=== PATIENT | female | born 1955 | race Caucasian/White ===

== ENCOUNTER 2021-05-25 13:57 | Emergency (ER) | payer BC, SELFPAY ==
[2021-05-25 13:58] VITALS: BP 120/70; PULSE 89; RESP 18; TEMP 35.2; O2SAT 98; BMI 30.1
--- NOTE | 2021-05-25 14:19 | EKG12_ITS ---
Test Reason : FALL Blood Pressure : / mmHG Vent. Rate : 108 BPM Atrial Rate : 029 BPM P-R Int : 000 ms QRS Dur : 088 ms QT Int : 506 ms P-R-T Axes : 000 030 062 degrees QTc Int : 678 ms Sinus vs Ectopic Atrial Rhythm Nonspecific ST and T wave abnormality Prolonged QT Abnormal ECG Confirmed by JANEY MATA, OMID ([id number]), greeting card editor HARESH SON ([id number]) on 05/26/2021 11:30:43 AM Referred By: MARIA Confirmed By:OMID TOTH MD
--- NOTE | 2021-05-25 14:20 | CT_ITS ---
STUDY: CT CERVICAL SPINE WITHOUT CONTRAST REASON FOR EXAM: Female, 66 years old. Trauma RADIATION DOSAGE (If Supplied By Facility): CTDIvol = ( 25.30 ) mGy, DLP = ( 995.24 ) mGycm TECHNIQUE: High resolution transaxial imaging was performed without contrast material. Sagittal and coronal images were reconstructed. Individualized dose optimization techniques were used for this CT. COMPARISON: None FINDINGS: Nondisplaced fracture of the posterior aspect of the right occipital bone extending to the base of the right occipital bone and right occipital condyle. Normal craniovertebral junction. There are degenerative changes of the anterior atlantoaxial articulation. Normal odontoid process. There is straightening of the normal cervical lordosis. Normal vertebral bodies and posterior osseous elements. C2-3: Marked degree of disc space narrowing and disc degeneration. Facet joint osteoarthritis and hypertrophy with bilateral neural foraminal stenosis. C3-4: The disc spaces well maintained. There is evidence of facet joint osteoarthritis and hypertrophy of the facet joints worse on the right side. Bilateral neural foraminal stenosis. C4-5: Normal endplates. Normal disc height and morphology. Normal central canal and intervertebral neuroforamina. C5-6: Moderate degree of disc space narrowing. Spondylosis. Mild degree of left neural foraminal stenosis. C6-7: Disc space narrowing. Facet joint osteoarthritis. C7-T1: Normal endplates. Normal disc height and morphology. Normal central canal and intervertebral neuroforamina. Normal visualized soft tissue structures. CT/Spine Cervical without Contras IMPRESSION: Multilevel degenerative changes, as described above. Electronically Signed: Chriss Contreras MD at 15:05 EST , Service support ,
--- NOTE | 2021-05-25 14:21 | CT_ITS ---
STUDY: CT CHEST, ABDOMEN T PELVIS WITH CONTRAST REASON FOR EXAM: Female, 66 years old. Fall from ladder -- TRAUMA ONLY: IV Contrast. Dont wait for creatinine RADIATION DOSAGE (If Supplied By Facility): CTDIvol = ( 19.14 ) mGy, DLP = ( 1944.83 ) mGycm TECHNIQUE: Transaxial imaging was performed following intravenous administration of IV 100mL Isovue-370. Individualized dose optimization techniques were used for this CT. COMPARISON: No relevant priors. FINDINGS: CHEST Partially calcified nodule in the anterior aspect of the right upper lobe. Increased markings with areas of confluence at the lung bases suggestive of bibasilar atelectasis. There is no demonstrated pleural abnormality. Normal heart and pericardium. Normal mediastinum. Normal hilar regions. Normal unenhanced pulmonary arteries. Normal aorta arch and descending thoracic aorta. There are multi-level degenerative changes of the thoracic spine. Nondisplaced rib fractures along the inferior posterior lower ribs bilaterally. Diffuse fatty infiltration of the liver. ABDOMEN There is decreased attenuation of the liver consistent with steatosis. The patient is status post cholecystectomy. Normal spleen. Normal pancreas. Normal bilateral adrenal glands. Normal right kidney. Normal left kidney. Normal visualized stomach. Normal small intestine. Normal colon. The appendix is visualized and appears normal. There is scattered atherosclerotic calcification of the abdominal aorta, without a demonstrated aneurysm. Normal inferior vena cava. Normal retroperitoneum. Normal abdominal wall. There are diffuse degenerative changes of the visualized lumbar spine. Nondisplaced rib fractures involving the lower posterior ribs medially bilaterally. PELVIS Normal urinary bladder. The patient is status post hysterectomy. Normal visualized small intestine. Normal visualized colon. There is no pelvic fluid. There is no pelvic lymphadenopathy or mass lesion. There is diffuse atherosclerotic calcification of the pelvic arteries. CT/CT Chest, Abd, Pel w/Contrast IMPRESSION: Nondisplaced bilateral posterior medial rib fractures involving at least the last 3 ribs with the increased markings at the lung bases suggestive of possible atelectasis and/or possible contusion. Fatty infiltration of the liver. Electronically Signed: Chriss Contreras MD at 15:11 EST , Service support ,
--- NOTE | 2021-05-25 14:23 | EDS_ITS ---
HPI History of Present Illness Chief Complaint: Fall Narrative Narrative: 56-year-old female presenting for evaluation after having a fall. Is reported to me that she was trying to hang Johanna lights and fell from a ladder. It is also reported that this may have been about 10 feet. The patient herself describes jumping from the ladder and its not clear if she fell from the full 10 feet. She is not able to tell me the mechanism of how she landed. She does respond to questioning but does appear to be confused. She does not admit to pain anywhere. She states he is not on blood thinners. PFSH PFSH Medical History Non-smoker Home Medications icosapent ethyl [Vascepa] 1 g PO BID 05/25/21 [History Last Taken Unknown] Allergy/AdvReac Type Severity Reaction Status Date / Time No Known Allergies Allergy Verified 05/25/21 14:04 Surgical History (Updated 05/25/21 @ 15:16 by Connor Ware) History of cholecystectomy History of hysterectomy History of knee surgery History of tonsillectomy and adenoidectomy Social History Smoking Status: Never smoker ROS ROS ED Review of Systems ROS Unobtainable: due to mental status EXAM Physical Exam Const Vital Signs: 05/25/21 13:58 05/25/21 14:55 05/25/21 15:09 Temperature 95.4 F L Temperature Source Temporal Pulse Rate 89 104 H 104 H Respiratory Rate 18 18 19 H Respiratory Effort Normal Respiratory Depth Normal Respiratory Pattern Normal Blood Pressure 120/70 145/77 H 145/78 H Blood Pressure Mean 86 99 100 Pulse Ox 98 97 97 Oxygen Delivery Method Room Air Room Air Room Air 05/25/21 16:12 Temperature Temperature Source Pulse Rate 98 Respiratory Rate 17 Respiratory Effort Respiratory Depth Respiratory Pattern Blood Pressure 135/83 H Blood Pressure Mean 100 Pulse Ox 96 Oxygen Delivery Method Positive well nourished General Appearance ED: NAD HEENT Reports TM's clear HEENT Narrative: Dried blood around the nares and dried blood bilaterally down the face posteriorly and pulling at the occiput. No visible laceration Tympanic Membrane ED: Yes TM's clear Eyes PERRL and EOMs intact bilaterally Neck Neck Narrative: Patient in c-collar. No midline spinal deformity or step-off. Chest Wall inspection of chest normal and palpation of chest normal Resp normal respiratory effort and clear to auscultation bilaterally Resp Narrative: Equal symmetric breath sounds and chest wall rise. Cardio regular rhythm Rate: regular rate GI normal to inspection, nondistended, normoactive bowel sounds Back/Spine no thoracic nor lumbar tenderness Neuro CN's II-XII intact bilaterally and moves all extremities Neuro Narrative: GCS 14 Sensorium / Orientation: alert Skin Skin Narrative: As described above MDM MDM MDM Narrative Medical decision making narrative: Patient presents after falling off a ladder estimated about 10 feet high. Patient presents in c-collar but denies any neck pain. History limited due to confusion. Patient had no trauma to her extremities and is moving all 4 extremities. GCS of 14 due to confusion. Patient speech is clear. She is able to tell me her name and the day but has trouble with her date of . Vital signs are stable and she is afebrile. She has no abdominal pain, chest pain, back pain on examination. Labs were drawn and are pending. EKG on my interpretation shows a sinus rhythm with a ventricular rate of 9 beats minute without sign of ischemic change. CT of the brain shows a nondisplaced occipital bone fracture on the right. And possible left basilar skull fracture as well as opacification of the left sphenoid sinus and air-fluid level in the left maxillary sinus. CT of the cervical spine is negative for acute fracture or subluxation and is noted to have some degenerative changes. CT of the chest abdomen pelvis is performed and shows no intra-abdominal abnormality however there are bilateral posterior medial rib fractures of the last 3 ribs bilaterally with basilar pulmonary contusion. Patient was discussed with Dr. Melissa from [facility] given the findings as the patient will need a trauma evaluation. Patient was accepted ER to ER. I did attempt to obtain ground transport however it is reported to me that I will be at least 90 minutes, and we have another patient who is already awaiting a transfer and is already past the 90 minutes further window of transport by 30 minutes. At this point I discussed with the family the need for air transport given the timeframe and her trauma status. They were amenable to this. Impression: 1. Right occipital bone fracture 2. Left basilar skull fracture 3. Patient bilateral posterior medial rib fractures of 10, 11, 12 4. Pulmonary contusion 5. Epistaxis Lab Data Attestation: I reviewed the patient's lab results. Labs: Laboratory Results - last 24 hr 05/25/21 05/25/21 05/25/21 15:03 15:03 15:03 WBC 11.4 H RBC 4.64 Hgb 13.4 Hct 39.6 MCV 85.3 MCH 28.9 MCHC 33.8 RDW Std Deviation 40.1 RDW Coeff of Eric 12.9 Plt Count 215 MPV 10.5 Immature Gran % (Auto) 0.900 Neut % (Auto) 72.2 H Lymph % (Auto) 19.9 [place] % (Auto) 6.0 Eos % (Auto) 0.3 Baso % (Auto) 0.7 Absolute Neuts (auto) 8.2 H Absolute Lymphs (auto) 2.26 Nucleated RBC % 0 PT Cancelled INR Cancelled Sodium 133 L Potassium 3.2 L Chloride 101 Carbon Dioxide 22.0 Anion Gap 10 BUN 22 H Creatinine 0.85 Estim Creat Clear Calc 52.19 Est GFR (MDRD) Af Amer 86 Est GFR (MDRD) Non-Af 71 BUN/Creatinine Ratio 25.9 H Glucose 148 H Calcium 8.6 Total Bilirubin 0.70 Direct Bilirubin 0.20 AST 52 H ALT 40 Alkaline Phosphatase 65 Total Protein 6.6 Albumin 2.9 L Globulin 3.7 Ethyl Alcohol 05/25/21 15:03 WBC RBC Hgb Hct MCV MCH MCHC RDW Std Deviation RDW Coeff of Eric Plt Count MPV Immature Gran % (Auto) Neut % (Auto) Lymph % (Auto) [place] % (Auto) Eos % (Auto) Baso % (Auto) Absolute Neuts (auto) Absolute Lymphs (auto) Nucleated RBC % PT INR Sodium Potassium Chloride Carbon Dioxide Anion Gap BUN Creatinine Estim Creat Clear Calc Est GFR (MDRD) Af Amer Est GFR (MDRD) Non-Af BUN/Creatinine Ratio Glucose Calcium Total Bilirubin Direct Bilirubin AST ALT Alkaline Phosphatase Total Protein Albumin Globulin Ethyl Alcohol < 3.0 Radiography Diagnostic Testing: Clinical Impression(s) from Imaging Studies Cervical Spine CT 05/25/21 14:20 IMPRESSION: Multilevel degenerative changes, as described above. Electronically Signed: Chriss Contreras MD at 15:05 EST , Service support , Chest/Abdomen/Pelvis CT 05/25/21 14:21 IMPRESSION: Nondisplaced bilateral posterior medial rib fractures involving at least the last 3 ribs with the increased markings at the lung bases suggestive of possible atelectasis and/or possible contusion. Fatty infiltration of the liver. Electronically Signed: Chriss Contreras MD at 15:11 EST , Service support , Facial/Sinus 05/25/21 14:23 IMPRESSION: Opacification of the left sphenoid sinus and air-fluid level in the left maxillary sinus. Questionable nondisplaced left basilar skull fracture. Electronically Signed: Chriss Contreras MD at 15:02 EST , Service support , Brain CT 05/25/21 14:40 IMPRESSION: Nondisplaced fracture of the right occipital bone extending to the base of the occipital bone on the right side. Possible left basal skull fracture. Opacification of the left sphenoid sinus and air-fluid level in the left maxillary sinus. Electronically Signed: Chriss Contreras MD at 15:01 EST , Service support , Critical Care Time Critical care time (excluding procedures): 30-74 minutes (35 minutes), Discus sing w/Patient &/or Family/Supervisor Instrument Repair, Discussing w/Consultants, Arranging Admission or Transfer and Performing Direct Patient Care at Bedside Discharge Plan Triage Chief Complaint: Fall ED Provider: Niles Orr Dx/Rx/DC Orders Prescriptions: No Action icosapent ethyl [Vascepa] 1 gram capsule 1 g PO BID RF: 0 Referrals: Rafaela JUARES [Other] Disposition Disposition: Acute Care Hospital Discharge Location: [facility] Discharge Date/Time: 05/25/21 16:19
--- NOTE | 2021-05-25 14:23 | CT_ITS ---
STUDY: CT FACIAL BONES WITHOUT CONTRAST REASON FOR EXAM: Female, 66 years old. Facial trauma due to a fall. RADIATION DOSAGE (If Supplied By Facility): CTDIvol = ( 29.38 ) mGy, DLP = ( 547.46 ) mGycm TECHNIQUE: The patient was scanned in a multi detector CT scanner. Sagittal and coronal images were reconstructed. Individualized dose optimization techniques were used for this CT. COMPARISON: None. FINDINGS: Normal soft tissue structures. Normal orbital arciniega and orbital contents. Normal nasal bones and anterior nasal spine. Normal facial bones. There is no demonstrated fracture. Opacification of the left sphenoid sinus with small air-fluid level in the left maxillary sinus. Possible nondisplaced left basal skull fracture. CT/Sinus/Facial Bone IMPRESSION: Opacification of the left sphenoid sinus and air-fluid level in the left maxillary sinus. Questionable nondisplaced left basilar skull fracture. Electronically Signed: Chriss Contreras MD at 15:02 EST , Service support ,
--- NOTE | 2021-05-25 14:40 | CT_ITS ---
STUDY: CT BRAIN WITHOUT CONTRAST REASON FOR EXAM: Female, 66 years old. Head injury due to trauma. RADIATION DOSAGE (If Supplied By Facility): CTDIvol = ( 44.99 ) mGy, DLP = ( 779.24 ) mGycm TECHNIQUE: Transaxial CT imaging of the brain was performed without administration of intravenous contrast material. Individualized dose optimization techniques were used for this CT. COMPARISON: No relevant priors. FINDINGS: Normal soft tissue structures. Nondisplaced fracture along the posterior aspect of the occipital bone on the right side extending to the region of the base of the right occiput. Possible left basal skull fracture. There is mild cerebral atrophy with widening of the extra-axial spaces and ventricular dilatation. Normal white matter tracts of the cerebral hemispheres. Normal basal ganglia and thalami. Normal brainstem. Normal cerebellum. There is no intracranial hemorrhage. There are no findings of an acute ischemic infarction. Air fluid level is seen in the left maxillary sinus. There is opacification of the left sphenoid sinus. CT/Brain/Head without Contrast IMPRESSION: Nondisplaced fracture of the right occipital bone extending to the base of the occipital bone on the right side. Possible left basal skull fracture. Opacification of the left sphenoid sinus and air-fluid level in the left maxillary sinus. Electronically Signed: Chriss Contreras MD at 15:01 EST , Service support ,
--- NOTE | 2021-05-25 14:51 | ED.RN ---
son called with patients permission. 20 minute eta. pt made aware. stephie bravo rn [id number]
[2021-05-25 14:55] VITALS: BP 145/77; PULSE 104; RESP 18; O2SAT 97; O2SAT 98
[2021-05-25 15:09] VITALS: BP 145/78; PULSE 104; RESP 19; O2SAT 97
[2021-05-25 15:14] LABS: Absolute Lymphocyte Count 2.26 X10^3/uL (0.83-4.51); Absolute Neutrophil Count 8.2 X10^3/uL (2.0-7.7); Basophil# 0.08 X10^3/uL; Basophil% 0.7 % (0-1); Eosinophil# 0.03 X10^3/uL; Eosinophils% 0.3 % (0-5); Hematocrit 39.6 % (37-47); Hemoglobin 13.4 g/dL (12.0-15.0); Lymphocyte # 2.26 X10^3/ul (0.83-4.51); Lymphocyte % 19.9 % (19-41); Mean Corp Hgb Conc 33.8 g/dL (32-36); Mean Corpuscular Hgb 28.9 pg (27.0-32.0); Mean Corpuscular Volume 85.3 fL (81-99); Mean Platelet Vol. 10.5 fl (6.2-12.0); Monocyte# 0.68 X10^3/uL; NRBC Flagged by Analyzer 0 % (0-5); Neutrophil # 8.22 X10^3/uL (2.7-7.7); Neutrophil % 72.2 % (47-70); Platelet Count 215 K/mm3 (150-450); RBC Distribution Width CV 12.9 % (11.6-14.6); RBC Distribution Width SD 40.1 fl (35.1-43.9); Red Blood Count 4.64 M/mm3 (4.2-5.4); White Blood Count 11.4 K/mm3 (4.4-11.0)
--- NOTE | 2021-05-25 15:17 | ED.RN ---
at bedside [id number]. stephie bravo rn
[2021-05-25 15:34] LABS: AST(SGOT) 52 U/L (15-37); Alanine Aminotransfer ALT/SGPT 40 U/L (13-56); Albumin, Serum 2.9 g/dL (3.2-5.0); Alkaline Phosphatase 65 U/L (45-117); Anion Gap 10 (5-15); BUN 22 mg/dL (7-18); BUN/Creat Ratio 25.9 RATIO (10-20); Calcium,Total 8.6 mg/dL (8.5-10.1); Chloride 101 mmol/L (98-107); Creatinine, Serum 0.85 mg/dL (0.55-1.02); EST Glomerular Filtration Rate 71 mL/min (>60); Est Glom Filt Rate - Afr Amer 86 mL/min (>60); Estimated Creatinine Clearance 52.19 ml/min; Globulin 3.7 g/dL (2.2-4.2); Glucose 148 mg/dL (74-106); Potassium 3.2 mmol/L (3.5-5.1); Protein, Total 6.6 g/dL (6.4-8.2); Sodium Level 133 mmol/L (136-145)
[2021-05-25 15:47] LABS: Alcohol, Blood (Medical)-Serum < 3.0 mg/dL
[2021-05-25] MEDS: 0.9% Normal Saline 1,000 ML 999 ML IV (16:05)
[2021-05-25 16:12] VITALS: BP 135/83; PULSE 98; RESP 17; O2SAT 96
== END 2021-05-25 16:19 | disposition short-term general hospital (02) ==
PROVIDERS: Emergency Provider Student in an Organized Health Care Education/Training Program
DX: S02.119A Unspecified fracture of occiput, initial encounter for closed fracture (principal); S02.82XA Fracture of other specified skull and facial bones, left side, initial encounter for closed fracture; S27.329A Contusion of lung, unspecified, initial encounter; S22.43XA Multiple fractures of ribs, bilateral, initial encounter for closed fracture; W11.XXXA Fall on and from ladder, initial encounter; R04.0 Epistaxis; K76.0 Fatty (change of) liver, not elsewhere classified
CPT/HCPCS: 70450; 70486; 71260; 72125; 74177; 80048; 80076; 82077; 85025; 93005; 96360; 99285; J7030; Q9967; A4216

== ENCOUNTER → 2022-04-27 | Outpatient (CLI) | payer BC, SELFPAY ==
[2022-04-27 12:19] LABS: Absolute Lymphocyte Count 2.75 X10^3/uL (0.83-4.51); Absolute Neutrophil Count 3.8 X10^3/uL (2.0-7.7); Basophil# 0.08 X10^3/uL; Basophil% 1.1 % (0-1); Eosinophil# 0.06 X10^3/uL; Eosinophils% 0.8 % (0-5); Hematocrit 45.8 % (37-47); Hemoglobin 14.9 g/dL (12.0-15.0); Lymphocyte # 2.75 X10^3/ul (0.83-4.51); Lymphocyte % 37.6 % (19-41); Mean Corp Hgb Conc 32.5 g/dL (32-36); Mean Corpuscular Hgb 28.5 pg (27.0-32.0); Mean Corpuscular Volume 87.6 fL (81-99); Monocyte% 8.2 % (0-10); NRBC Flagged by Analyzer 0 % (0-5); Neutrophil # 3.79 X10^3/uL (2.7-7.7); Neutrophil % 51.9 % (47-70); Platelet Count 269 K/mm3 (150-450); RBC Distribution Width CV 13.1 % (11.6-14.6); RBC Distribution Width SD 42.2 fl (35.1-43.9); Red Blood Count 5.23 M/mm3 (4.2-5.4); White Blood Count 7.3 K/mm3 (4.4-11.0)
[2022-04-27 13:02] LABS: Vitamin B12 302 pg/mL (211-911); Vitamin D,25 Hydroxy 37.5 ng/mL
[2022-04-27 13:19] LABS: ALB/GLOB Ratio 0.9 RATIO (0.9-2.4); AST(SGOT) 36 U/L (15-37); Alanine Aminotransfer ALT/SGPT 49 U/L (13-56); Albumin, Serum 3.5 g/dL (3.2-5.0); Alkaline Phosphatase 77 U/L (45-117); Anion Gap 8 (5-15); BUN 14 mg/dL (7-18); BUN/Creat Ratio 18.8 RATIO (10-20); Calcium,Total 9.7 mg/dL (8.5-10.1); Chloride 110 mmol/L (98-107); Cholesterol 197 mg/dL (200); Creatinine, Serum 0.74 mg/dL (0.55-1.02); EST Glomerular Filtration Rate 83 mL/min (>60); Est Glom Filt Rate - Afr Amer 101 mL/min (>60); Globulin 3.9 g/dL (2.2-4.2); Glucose 102 mg/dL (74-106); High Density Lipoprotein 45 mg/dL; Magnesium 2.1 mg/dL (1.6-2.6); Potassium 3.9 mmol/L (3.5-5.1); Protein, Total 7.4 g/dL (6.4-8.2); Sodium Level 141 mmol/L (136-145); Triglycerides 139 mg/dL; Very Low Density Lipoprotein 28 mg/dL (5-40)
== END | disposition home or self-care (01) ==
PROVIDERS: PCP Family Medicine; Referring Provider Family Medicine; Visit Provider Family Medicine
DX: R53.83 Other fatigue (principal); M85.80 Other specified disorders of bone density and structure, unspecified site; E78.1 Pure hyperglyceridemia
CPT/HCPCS: 36415; 80053; 80061; 82306; 82607; 83735; 84439; 84443; 85025

== ENCOUNTER → 2022-05-04 | Outpatient (CLI) | payer BC, SELFPAY ==
--- NOTE | 2022-05-04 11:39 | US_ITS ---
STUDY: THYROID ULTRASOUND REASON FOR EXAM: Female, 67 years old. Palpable nodule TECHNIQUE: Ultrasound evaluation of the thyroid was performed with real-time and static wilson-scale imaging. COMPARISON: None. FINDINGS: RIGHT LOBE: The right lobe of the thyroid gland measures 5.0 x 1.5 x 1.5 cm. There is a heterogeneous echotexture. There is a simple 0.6 cm cyst. LEFT LOBE: The left lobe of the thyroid gland measures 4.4 x 1.4 x 1.4 cm. There is a heterogeneous echotexture. There are 2 separate simple cysts larger measures 0.7 cm, smaller 0.3 cm. ISTHMUS: The isthmus measures 3.2 mm. The regional lymph nodes are normal. US/Thyroid IMPRESSION: Heterogeneous thyroid gland, the right lobe is mildly enlarged, left is of normal size. No suspicious solid mass lesion, there are bilateral simple cysts. No specific follow-up needed Electronically Signed: Eren Foley MD at 12:41 EDT ,
== END | disposition home or self-care (01) ==
PROVIDERS: PCP Family Medicine; Referring Provider Family Medicine; Visit Provider Family Medicine
DX: E04.1 Nontoxic single thyroid nodule (principal)
CPT/HCPCS: 76536

== ENCOUNTER → 2022-05-11 | Outpatient (CLI) | payer BC, SELFPAY ==
--- NOTE | 2022-05-11 08:21 | BD_ITS ---
STUDY: DUAL ENERGY X-RAY ABSORPTIOMETRY / DXA REASON FOR EXAM: Female, 67 years old. M85.89 TECHNIQUE: Bone Mineral Density (BMD) measurements of lumbar spine and bilateral hips were obtained. COMPARISON: Comparison is made with prior study dated 01/12/2009. FINDINGS: Lumbar Spine (L1-L4): g/cm2 (0.624) / T-score (-3.8) / Z-score (-2.0) Findings are suggestive of osteoporosis with a high fracture risk. Left Femur Total: g/cm2 (0.826) / T-score (-1.0) / Z-score (0.3) Left Femoral Neck: g/cm2 (0.725) / T-score (-1.1) / Z-score (0.5) Right Femur Total: g/cm2 (0.808) / T-score (-1.1) / Z-score (0.2) Right Femoral Neck: g/cm2 (0.658) / T-score (-1.7) / Z-score (-0.1) The T-Scores on the most recent prior examination were: Lumbar Spine (L1-L4): There has been worsening of bone density since the previous examination. Left Femur Total: which represents a worsening of 7.7%. Right Femur Total: which represents a worsening of 10.7%. BD/Dexa Bone Density Study IMPRESSION: The patient is considered osteoporotic as outlined below according to World Carlos Organization (WHO) criteria with a high fracture risk. There has been worsening of bone density since the previous examination. Reference Information: The T-score is the number of standard deviations above or below the standard which is normal for young adults at their peak bone mineral density. The World Health Organization (WHO) interprets the T-scores as follows: Above -1 Normal bone density Between -1 and -2.5 Osteopenia Equal to / or below -2.5 Osteoporosis As a practical clinical guideline, osteopenia may be graded as follows: Mild -1 through -1.5 Moderate -1.6 through -2.0 Severe -2.1 through -2.4 The Z-score is the number of standard deviations above or below age-matched controls. A Z-score of less than -1.5 would be considered abnormal. References: 1. NIH Osteoporosis and Related Bone Diseases www osteo.org 2. International Society for Clinical Densitometry www iscd.org 3. National Osteoporosis Foundation www nof.org Electronically Signed: Chriss Contreras MD at 15:21 EDT ,
== END | disposition home or self-care (01) ==
LOC: OPBD 08:07
PROVIDERS: PCP Family Medicine; Referring Provider Family Medicine; Visit Provider Family Medicine
DX: M85.89 Other specified disorders of bone density and structure, multiple sites (principal)
CPT/HCPCS: 77080

== ENCOUNTER → 2022-08-08 | Outpatient (CLI) | payer BC, MEDICARE, SELFPAY ==
[2022-08-08 10:27] LABS: Hemoglobin A1c 5.9 % (3.8-5.6)
[2022-08-08 10:38] LABS: ALB/GLOB Ratio 0.9 RATIO (0.9-2.4); AST(SGOT) 31 U/L (15-37); Alanine Aminotransfer ALT/SGPT 48 U/L (13-56); Albumin, Serum 3.5 g/dL (3.2-5.0); Alkaline Phosphatase 82 U/L (45-117); Anion Gap 6 (5-15); BUN 18 mg/dL (7-18); BUN/Creat Ratio 23.8 RATIO (10-20); Calcium,Total 9.9 mg/dL (8.5-10.1); Chloride 105 mmol/L (98-107); Cholesterol 234 mg/dL (200); Creatinine, Serum 0.76 mg/dL (0.55-1.02); EST Glomerular Filtration Rate 81 mL/min (>60); Est Glom Filt Rate - Afr Amer 98 mL/min (>60); Globulin 3.9 g/dL (2.2-4.2); Glucose 100 mg/dL (74-106); High Density Lipoprotein 44 mg/dL; Potassium 4.1 mmol/L (3.5-5.1); Protein, Total 7.4 g/dL (6.4-8.2); Sodium Level 138 mmol/L (136-145); Triglycerides 177 mg/dL; Very Low Density Lipoprotein 35 mg/dL (5-40)
[2022-08-08 10:42] LABS: Vitamin D,25 Hydroxy 38.2 ng/mL
== END | disposition home or self-care (01) ==
LOC: MFPLAB 08:55
PROVIDERS: PCP Family Medicine; Referring Provider Family Medicine; Visit Provider Family Medicine
DX: M81.0 Age-related osteoporosis without current pathological fracture (principal); R73.02 Impaired glucose tolerance (oral); E78.1 Pure hyperglyceridemia
CPT/HCPCS: 36415; 80053; 80061; 82306; 83036

== ENCOUNTER → 2022-08-14 | Outpatient (CLI) | payer BC, MEDICARE, SELFPAY ==
--- NOTE | 2022-08-14 14:30 | US_ITS ---
STUDY: ULTRASOUND BREAST - LEFT REASON FOR EXAM: Female, 67 years old. Abnormal screening mammogram. TECHNIQUE: Axial and longitudinal images of the LEFT breast were performed with a high resolution ultrasound transducer. # OF IMAGES: 39 COMPARISON: Comparison is made with prior mammogram dated 08/14/2022. FINDINGS: LEFT Breast: The upper-outer quadrant of the left breast was examined with ultrasound. The mammographic abnormality corresponds to a 3 mm x 3 mm x 2 mm cyst at the 1 o''clock position of the breast at 4 cm from the nipple. US/Breast Limited Unilateral IMPRESSION: The mammographic abnormality corresponds to a 3 mm x 3 mm x 2 mm cyst at the 1 o''clock position of the breast at 4 cm from the nipple. ASSESSMENT CATEGORY: BIRADS Category 2: Benign. A letter regarding these results will be sent to the patient by the facility within 30 days. Electronically Signed: Chriss Contreras MD at 9:56 EST ,
--- NOTE | 2022-08-14 14:30 | BI_ITS ---
MAMMOGRAPHY - BILATERAL DIAGNOSTIC REASON FOR EXAM: Female, 67 years old. Six-month follow-up for left breast density. Prior right stereotactic breast biopsy. PERTINENT HISTORY: Mother with breast cancer. TECHNIQUE: Digital bilateral breast leighton (3D mammographic acquisition) in the CC and MLO projections. 2-D mediolateral oblique (MLO) and craniocaudad (CC) views of both breasts were obtained. CAD: Full Field Digital Mammography with Computer Added Detection was performed. COMPARISON: Comparison is made with prior outside examination dated 11/29/2021 and 04/16/2015. FINDINGS: Breast Composition: The breasts are heterogeneously dense, which may obscure small masses. There are no dominant masses or suspicious calcifications. Stable 3.4 mm well-defined nodule in the axillary region of the left breast. Stable small benign appearing bilateral axillary lymph nodes. No other significant abnormalities are identified. There has been no significant change since the prior study. BI/DIAG MAMM W/CAD, BILAT IMPRESSION: Stable bilateral diagnostic mammogram. One year follow-up recommended. (A) ASSESSMENT CATEGORY: BIRADS Category 2: Benign. A letter regarding these results will be sent to the patient by the facility within 30 days. Approximately 10% of breast cancers are not detected by mammography. A normal mammogram should not delay biopsy of a clinically suspicious abnormality. Electronically Signed: Chriss Contreras MD at 15:33 EST ,
== END | disposition home or self-care (01) ==
PROVIDERS: PCP Family Medicine; Visit Provider Nurse Practitioner Family
DX: R92.8 Other abnormal and inconclusive findings on diagnostic imaging of breast (principal); Z80.3 Family history of malignant neoplasm of breast
CPT/HCPCS: 76642; 77062; 77066; G0279

== ENCOUNTER → 2022-10-04 | Outpatient (CLI) | payer MEDICARE, SELFPAY | END | disposition home or self-care (01) | LOC: LABSPEC 15:11 | PROVIDERS: PCP Family Medicine; Visit Provider Family Medicine | DX: N39.0 Urinary tract infection, site not specified (principal) | CPT/HCPCS: 87086; 87088 ==

== ENCOUNTER → 2022-11-28 | Outpatient (CLI) | payer MEDICARE, SELFPAY ==
[2022-11-28 15:45] LABS: Absolute Lymphocyte Count 2.52 X10^3/uL (0.83-4.51); Absolute Neutrophil Count 3.3 X10^3/uL (2.0-7.7); Basophil# 0.08 X10^3/uL; Basophil% 1.2 % (0-1); Eosinophil# 0.05 X10^3/uL; Eosinophils% 0.8 % (0-5); Hematocrit 45.6 % (37-47); Hemoglobin 14.7 g/dL (12.0-15.0); Lymphocyte # 2.52 X10^3/ul (0.83-4.51); Lymphocyte % 39.2 % (19-41); Mean Corp Hgb Conc 32.2 g/dL (32-36); Mean Corpuscular Hgb 28.9 pg (27.0-32.0); Mean Corpuscular Volume 89.8 fL (81-99); Mean Platelet Vol. 10.1 fl (6.2-12.0); Monocyte# 0.47 X10^3/uL; Monocyte% 7.3 % (0-10); NRBC Flagged by Analyzer 0 % (0-5); Neutrophil # 3.29 X10^3/uL (2.7-7.7); Neutrophil % 51.2 % (47-70); Platelet Count 293 K/mm3 (150-450); RBC Distribution Width CV 13.1 % (11.6-14.6); Red Blood Count 5.08 M/mm3 (4.2-5.4); White Blood Count 6.4 K/mm3 (4.4-11.0)
[2022-11-28 15:53] LABS: AST(SGOT) 32 U/L (15-37); Alanine Aminotransfer ALT/SGPT 41 U/L (13-56); Albumin, Serum 3.6 g/dL (3.2-5.0); Alkaline Phosphatase 80 U/L (45-117); Anion Gap 7 (5-15); BUN 20 mg/dL (7-18); BUN/Creat Ratio 25.2 RATIO (10-20); Calcium,Total 9.6 mg/dL (8.5-10.1); Chloride 110 mmol/L (98-107); Cholesterol 188 mg/dL (200); EST Glomerular Filtration Rate 77 mL/min (>60); Est Glom Filt Rate - Afr Amer 93 mL/min (>60); Globulin 3.7 g/dL (2.2-4.2); Glucose 82 mg/dL (74-106); High Density Lipoprotein 50 mg/dL; Potassium 4.1 mmol/L (3.5-5.1); Protein, Total 7.3 g/dL (6.4-8.2); Sodium Level 142 mmol/L (136-145); Triglycerides 78 mg/dL; Very Low Density Lipoprotein 16 mg/dL (5-40)
[2022-11-28 16:37] LABS: Hemoglobin A1c 5.8 % (3.8-5.6)
== END | disposition home or self-care (01) ==
LOC: MFPLAB 12:15
PROVIDERS: PCP Family Medicine; Visit Provider Family Medicine
DX: R73.02 Impaired glucose tolerance (oral) (principal); E78.1 Pure hyperglyceridemia; M81.0 Age-related osteoporosis without current pathological fracture
CPT/HCPCS: 36415; 80053; 80061; 82306; 83036; 85025

== ENCOUNTER → 2023-05-29 | Outpatient (CLI) | payer MEDICARE, SELFPAY ==
[2023-05-29 10:06] LABS: Absolute Lymphocyte Count 2.92 X10^3/uL (0.83-4.51); Absolute Neutrophil Count 4.6 X10^3/uL (2.0-7.7); Basophil# 0.09 X10^3/uL; Basophil% 1.1 % (0-1); Eosinophils% 1.2 % (0-5); Hematocrit 46.1 % (37-47); Hemoglobin 14.9 g/dL (12.0-15.0); Lymphocyte # 2.92 X10^3/ul (0.83-4.51); Lymphocyte % 34.9 % (19-41); Mean Corp Hgb Conc 32.3 g/dL (32-36); Mean Corpuscular Hgb 28.8 pg (27.0-32.0); Mean Corpuscular Volume 89.2 fL (81-99); Mean Platelet Vol. 10.1 fl (6.2-12.0); Monocyte# 0.59 X10^3/uL; Monocyte% 7.1 % (0-10); NRBC Flagged by Analyzer 0 % (0-5); Neutrophil # 4.62 X10^3/uL (2.7-7.7); Neutrophil % 55.2 % (47-70); Platelet Count 311 K/mm3 (150-450); RBC Distribution Width CV 13.5 % (11.6-14.6); RBC Distribution Width SD 44.3 fl (35.1-43.9); Red Blood Count 5.17 M/mm3 (4.2-5.4); White Blood Count 8.4 K/mm3 (4.4-11.0)
[2023-05-29 10:34] LABS: ALB/GLOB Ratio 0.8 RATIO (0.9-2.4); AST(SGOT) 25 U/L (15-37); Alanine Aminotransfer ALT/SGPT 32 U/L (13-56); Albumin, Serum 3.4 g/dL (3.2-5.0); Alkaline Phosphatase 79 U/L (45-117); Anion Gap 5 (5-15); BUN 14 mg/dL (7-18); BUN/Creat Ratio 17.7 RATIO (10-20); Calcium,Total 9.2 mg/dL (8.5-10.1); Chloride 111 mmol/L (98-107); Cholesterol 199 mg/dL (200); Creatinine, Serum 0.79 mg/dL (0.55-1.02); EST Glomerular Filtration Rate 77 mL/min (>60); Est Glom Filt Rate - Afr Amer 93 mL/min (>60); Glucose 99 mg/dL (74-106); Hemoglobin A1c 5.7 % (3.8-5.6); High Density Lipoprotein 47 mg/dL; Potassium 4.5 mmol/L (3.5-5.1); Protein, Total 7.4 g/dL (6.4-8.2); Sodium Level 141 mmol/L (136-145); Triglycerides 151 mg/dL; Very Low Density Lipoprotein 30 mg/dL (5-40)
[2023-05-29 10:38] LABS: Vitamin D,25 Hydroxy 54.3 ng/mL
== END | disposition home or self-care (01) ==
LOC: MFPLAB 08:59
PROVIDERS: PCP Family Medicine; Visit Provider Family Medicine
DX: E78.1 Pure hyperglyceridemia (principal); M81.0 Age-related osteoporosis without current pathological fracture; R73.02 Impaired glucose tolerance (oral)
CPT/HCPCS: 36415; 80053; 80061; 82306; 83036; 85025

== ENCOUNTER 2023-07-20 08:16 | Day surgery (SDC) | payer MEDICARE, SELFPAY ==
--- NOTE | 2023-07-20 | ESO_PTH ---
PATHOLOGY RESULTS PATIENT: KIM MON LOC: EN U#:[id number] AGE/SX: 68/F ROOM: RE07/20/[address]: Dr. John Taveras MD : [id number] BED: DIS: 07/20/2023 SPEC #: [id number] RECD: 07/20/23 12:33 STATUS: MANOLO SHANNON #: [id number] YRIS: 07/20/23 00:[address]: John Taveras DEPT: SURGICAL PATHOLOGY RECD BY: Kalina Webster ENTERED: 07/20/23 12:33 SP TYPE: CESAR HENSLEY DR: Dr. Oral Becerra MD Tissues: Esophagus, NOS Procedures: Special Stain Group II Surgery Specimen Level IV Alcian Blue/PAS (control) HEADER OPERATION: Colonoscopy, EGD with biopsy PRE-OP DIAGNOSIS: History of colon polyps, Gann's esophagus TISSUE SUBMITTED: Gastroesophageal junction biopsy MICROSCOPIC DIAGNOSIS Gastroesophageal junction, biopsy: Fragments of gastroesophageal mucosa with acute and chronic inflammation and changes consistent with gastroesophageal reflux disease. Intestinal metaplasia (goblet cell metaplasia) not identified. See comment. ASTRID:fifi 07/23/2023 COMMENT Alcian blue/PAS stain with matched control is used in the evaluation of the specimen. MICROSCOPIC DESCRIPTION Slides are reviewed. GROSS DESCRIPTION Received in fixative is one container labeled with the patient's name and designated GE junction. The specimen consists of two irregular fragments of light elena soft tissue that in aggregate measure 0.5 x 0.3 x 0.1 cm. The specimen is totally submitted in one cassette. / ASTRID:fifi 07/20/2023 TC:5 CPT: 07948, 70919
--- OUTSIDE RECORDS SUMMARY | 2023-07-20 08:40 | XMS RPT_ITS | CCD ---
Author Name Unknown Address [address] [place] [address] [facility] Care Team Providers Care Bilingual Social Worker Name Role Phone CHELI MORALES Unavailable Unavailable PCP, NONE Unavailable Unavailable OGLE, MACY Unavailable Unavailable SZEMETYLO, RODOLFO Unavailable Unavailable SZEMETYLO, RODOLFO Unavailable Unavailable OGLE, MACY Unavailable Unavailable De Baca DO, Macy Failor Primary Care Provider PROVIDER, UNKNOWN Attending Unavailable PROVIDER, UNKNOWN Admitting Unavailable OGLE, MACY Attending Unavailable OGLE, MACY Admitting Unavailable OGLE, MACY Primary Care Unavailable OGLE, MACY Consulting Unavailable DICK [id number], HAL Consulting Jeaneth vailable OGLE, MACY Admitting Unavailable OGLE, MACY Primary Care Unavailable OGLE, MACY Consulting Unavailable OGLE, MACY Attending Unavailable NONE, NONE Consulting Unavailable OGLE, MACY Admitting Unavailable OGLE, MACY Primary Care Unavailable OGLE, MACY Consulting Unavailable OGLE, MACY Attending Unavailable OGLE, MACY Admitting Unavailable OGLE, MACY Primary Care Unavailable OGLE, MACY Consulting Unavailable OGLE, MACY Attending Unavailable DICK [id number], HAL Consulting Jeaneth vailable Hieu MATA, Balint Unavailable De Baca DO Macy Failor Unavailable Gage Becerra Primary Care Provider [phone] Hieu MATA Balint Unavailable De Baca DO Macy Failor Unavailable [phone] Schinner, [facility] Provider [phone] RISA HODGE Attending Unavailable SHIRA LANGE Referring Unavailable ANGIE, [facility] UnavailSHIRA Crowder Referring Unavailable ANGIE, [facility] Unavailvioleta e RISA HODGE Attending Unavailable MALI GUZMAN, LADY JARRETT Attending Unav ailable [facility] Unavailvioleta e QASIM BENNETT Attending Unavailable LADY JODEE ESPARZA Attending Unav ailable MACY SORENSON Referring Unavailabl e SCHINNER, [facility] Unavailabl e JAIDA BURGOS Attending Unavailable Artie Laura Referring Unavailable AUBREYJAIDA WESTBROOK Attending Unavailable Artie Laura Referring Unavailable [facility] Unavailabl e SCHINNER, [facility] Unavailabl e Artie Laura Referring Unavailable [facility] UnavailSHIRA Crowder Referring Unavailable RISA HODGE Attending Unavailable Medications Completed/Discontinued Medications Medication Drug Class(es) Dates Sig (Normalized) Sig (Original) icosapent ethyl 1000 mg oral capsule (10 sources) Start: 03-10-2021 take 2 capsules by mouth twice daily VASCEPA 1 gram capsule Take 2 capsules by mouth twice daily. 0 03/10/2021 Active Problems Active Problems Problem Classification Problem Date Documented Da te Episodic/Chronic Acute cerebrovascular disease (1 source) Intracranial hemorrhage; Translations: [Nontraumatic intracranial hemorrhage, unspecified] Chronic E Codes: Fall (1 source) Fall; Translations: [Unspecified fall, initial encounter] Onset: 05-26-2021 05-26-2021 Episodic Esophageal disorders (1 source) Esophageal disorders Onset: 06-25-2018 Other gastrointestinal disorders (4 sources) Diarrhea, unspecified; Translations: [DIARRHEA UNSPECIFIED] Onset: 05-18-2021 Episodic Other gastrointestinal disorders (4 sources) Spurious diarrhea - overflow; Translations: [Diarrhea, unspecified] Episodic Other gastrointestinal disorders (10 sources) Incontinence of feces; Translations: [Full incontinence of feces] Onset: 05-30-2022 Episodic Other gastrointestinal disorders (2 sources) Irregular bowel habits; Translations: [Other specified symptoms and signs involving the digestive system and abdomen] Episodic Other gastrointestinal disorders (1 source) Full incontinence of feces; Translations: [Incontinence of feces, unspecified fecal incontinence type] Onset: 05-30-2022 Episodic Other gastrointestinal disorders (1 source) Other specified symptoms and signs involving the digestive system and abdomen; Translations: [Irregular bowel habits] Onset: 07-27-2022 Episodic Other screening for suspected conditions (not mental disorders or infectious disease) (5 sources) Encounter for screening mammogram for malignant neoplasm of breast; Translations: [Other abnormal and inconclusive findings on diagnostic imaging of breast] Onset: 11-29-2021 Episodic Unclassified (1 source) Personal history of colonic polyps / Z86.010(ICD-10) Onset: 06-27-2018 Unclassified (1 source) Other fecal abnormalities / R19.5(ICD-10) Onset: 06-25-2018 Past or Other Problems Problem Classification Problem Date Documented Date Episodic/Chronic Intracranial injury (10 sources) Traumatic subarachnoid hemorrhage with loss of consciousness; Translations: [Traumatic subarachnoid hemorrhage with loss of consciousness of unspecified duration, initial encounter] Onset: 05-26-2021 05-26-2021 Episodic Nonmalignant breast conditions (3 sources) Unspecified lump in the left breast, upper outer quadrant; Translations: [Unspecified lump in the left breast, unspecified quadrant] Onset: 05-03-2021 Episodic Other fractures (10 sources) Closed fracture of multiple left and right ribs; Translations: [Multiple fractures of ribs, bilateral, initial encounter for closed fracture] Onset: 05-26-2021 05-26-2021 Episodic Skull and face fractures (10 sources) Fracture of base of skull; Translations: [Fracture of base of skull, unspecified side, initial encounter for closed fracture] Onset: 05-25-2021 05-25-2021 Episodic Results Test Name Value Interpretation Reference Range Facil ity Vital Signs Date Time Vital Sign Value Performing Clinician Faci lity 07-27-2022 15:14-0500 Body height 157.5 cm Lady Mali Guzman MD Work Phone: [facility] 07-27-2022 15:14-0500 Body temperature 97.39 [degF] Lady Mali Guzman MD Work Phone: [facility] 07-27-2022 15:14-0500 Body weight 74.89 kg Lady Mali Guzman MD Work Phone: [facility] 07-27-2022 15:14-0500 Diastolic blood pressure 77 mm[Hg] Lady Mali Guzman MD Work Phone: [facility] 07-27-2022 15:14-0500 Heart rate 90 /min Lady Mali Guzman MD Work Phone: [facility] 07-27-2022 15:14-0500 SaO2% (BldA) [Mass fraction] 94 % Lady Mali Guzman MD Work Phone: [facility] 07-27-2022 15:14-0500 Systolic blood pressure 124 mm[Hg] Lady Mali Guzman MD Work Phone: [facility] 05-11-2022 12:23-0400 Body height 157.5 cm Lady Mali Guzman MD Work Phone: [facility] 05-11-2022 12:23-0400 Body temperature 97.59 [degF] Lady Mali Guzman MD Work Phone: [facility] 05-11-2022 12:23-0400 Body weight 73.48 kg Lady Mali Guzman MD Work Phone: [facility] 05-11-2022 12:23-0400 Diastolic blood pressure 78 mm[Hg] Lady Mali Guzman MD Work Phone: [facility] 05-11-2022 12:23-0400 Heart rate 72 /min Lady Mali Guzman MD Work Phone: [facility] 05-11-2022 12:23-0400 SaO2% (BldA) [Mass fraction] 96 % Lady Mali Guzman MD Work Phone: [facility] 05-11-2022 12:23-0400 Systolic blood pressure 125 mm[Hg] Lady Mali Guzman MD Work Phone: [facility] Encounters Encounter Date Encounter Type Care Provider Facility Start: 07-27-2022 End: 01-13-2023 ambulatory LADY JODEE GUZMAN Facility:[facility] Start: 07-27-2022 End: 07-27-2022 Patient encounter procedure Lady Jodee Guzman MD Work Phone: Gastroenterology Procedures Date Procedure Procedure Detail Performing Clinician Start: 06-29-2022 Radiologic exam colo n single contrast study Lady Jodee Guzman MD Work Phone: Start: 05-25-2022 ADULT [place] ANORECTAL [place]OMETRY Lady Jodee Guzman MD Work Phone: Start: 05-25-2021 Antibody screen Plan of Treatment Date Care Activity Detail Author Start: 05-28-2024 DIABETES SCREEN DIABETES SCREEN [facility] Start: 05-27-2024 DIABETES SCREEN DIABETES SCREEN [facility] Start: 07-16-2022 ADVANCE DIRECTIVE DISCUSSION ADVANCE DIRECTIVE DISCUSSION [facility] Start: 07-16-2022 DEPRESSION ASSESSMENT DEPRESSION ASSESSMENT [facility] Start: 02-28-2022 PNEUMOCOCCAL: 65+ (2 - PPSV23 if available, else PCV20) PNEUMOCOCCAL: 65+ (2 - PPSV23 if available, else PCV20) [facility] Start: 07-16-2021 ADVANCE DIRECTIVE DISCUSSION ADVANCE DIRECTIVE DISCUSSION [facility] Start: 07-16-2021 DEPRESSION ASSESSMENT DEPRESSION ASSESSMENT [facility] Start: 02-25-2021 ADVANCE DIRECTIVE DISCUSSION ADVANCE DIRECTIVE DISCUSSION [facility] Start: 02-25-2021 BONE DENSITY BONE DENSITY [facility] Start: 02-25-2021 PNEUMOVAX AGE 65 AND OVER WITH 5YR LOOKBACK (#1) PNEUMOVAX AGE 65 AND OVER WITH 5YR LOOKBACK (#1) [facility] Start: 02-25-2006 SHINGRIX VACCINE (1 of 2) SHINGRIX VACCINE (1 of 2) [facility] Start: 02-25-2001 COLOGUARD (FIT-DNA) COLOGUARD (FIT-DNA) [facility] Start: 02-25-2001 Colonoscopy COLONOSCOPY [facility] Start: 02-25-2001 COLORECTAL CANCER SCREENING COLORECTAL CANCER SCREENING [facility] Start: 02-25-[address] COLONOGRAPHY [facility] Start: 02-25-2001 FECAL OCCULT BLOOD FECAL OCCULT BLOOD [facility] Start: 02-25-2001 LIPID SCREEN LIPID SCREEN [facility] Start: 02-25-2001 SIGMOIDOSCOPY SIGMOIDOSCOPY [facility] Start: 1996 Mammography MAMMOGRAM [facility] Start: 02-25-1975 Urine microalbumin profile DTAP,TDAP,TD (1 - Tdap) [facility] Start: 02-25-1974 HEPATITIS C SCREENING HEPATITIS C SCREENING [facility] Start: 02-25-1974 HIV SCREENING HIV SCREENING [facility] Start: 1968 Adult depression screening assessment DEPRESSION SCREENING [facility] Start: 1968 COVID-19 VACCINE (1) COVID-19 VACCINE (1) [facility] End: 05-11-2023 [place]ULT [place] [employer] ADULT [place] ANORECTAL MANOMETRY Endoscopy Routine Overflow diarrhea 1 Occurrences starting 05/11/2022 until 05/11/2023 [facility] Work Phone: Immunizations Immunization Date Immunization Notes Care Provider Fa mango 03-11-2021 influenza, high dose seasonal, preservative-free Mercedez Cuevas PA-C Work Phone: [facility] 02-28-2021 pneumococcal conjuga te vaccine, 13 valent Mercedez Cuevas PA-C Work Phone: [facility] Payers Date Payer Category Payer Medicare [employer] MEDICARE A ETNA MEDICARE PPO [id number] 2022-Present [phone] [address] [place] [address] PPO [id number] 2022 Medicare [id number] 2021 Unknown [employer] PPO [id number] 2021-Present [phone] [address] [place] [address] PPO [id number] 2021 Unknown [employer] PPO [id number] 2021-Present [phone] [address] [place] [address] PPO [id number] 2016 Unknown [id number] 1959 Unknown [id number] 1956 Unknown [id number] 1956 Unknown [id number] 1956 Unknown [id number] 1956 Unknown [id number] 1956 Unknown [id number] 1956 Unknown [id number] 1956 Unknown [id number] Social History Date Type Detail Facility Tobacco smoking status TNIS Tobacco smoking consumption unknown [facility] Work Phone: Start: 1955 Sex Assigned At Not on file [facility] Start: 04-08-2022 End: 05-25-2022 Exposure to SARS-CoV-2 (event) Not sure [facility] Start: 06-13-2021 End: 07-27-2022 Tobacco smoking status TNIS Never smoked tobacco [facility] Start: 06-13-2021 End: 07-27-2022 Tobacco use and exposure Smokeless tobacco non-user [facility] Start: 08-31-2021 End: 07-27-2022 Alcohol intake Current drinker of alcohol (finding) [facility] Clinical Notes 05-26-2021 to 07-27-2022 Patient Lemuel Carrillo MD - 07/27/2022 5:36 PM Marco Carrillo MD - 07/27/2022 5:30 PM Lakshmi Hodge PT - 06/30/2022 7:01 AM Lakshmi Hodge, PT - 06/16/2022 7:00 AM EST Note Date & Type Note Facility 07-27-2022 Note HNO ID: [id number] Author: Carlton Carrillo MD Service: ? Author Type: Physician Type: Progress Notes Filed: 07/27/2022 6:25 PM Note Text: DEPARTMENT OF GASTROENTEROLOGY - FOLLOW UP VISIT HISTORY OF PRESENT ILLNESS Lorie Mon is a 67 year old lady with history of TBI and subarachnoid hemorrhage after a ladder fall, s/p cholecystectomy (02/05/2013), s/p hysterectomy, s/p bladder sling who presents today for follow-up of overflow diarrhea. UPDATES: She has been doing excellent since increasing the amount of water and fiber. She is having one soft bowel movements daily. She did 2 sessions of pelvic PT (Keggel's) and she is doing some exercises at home. She got rifaximin per per PCP and felt that it helped her also. TEST RESULTS SINCE LAST VISIT Imaging/Procedures: 05/25/22 Anorectal manometry Anorectal Manometry Testing: Strength: Anorectal manometry was performed. Average Pressure Interpretation Rest: 28 mmHg This is below normal range. Normal range is 35-50 mmHg. Squeeze: 53 mmHg This is below normal range. Normal range is 75 - 100 mmHg. There is appropriate incremental change between resting and squeeze pressures which can indicate good pelvic floor movement with squeeze. Sensory: Sensation Volume First sensation : 34 mL / Normal Range: 40-80 mL First urge to defecate: 50 mL / Normal Range: 80-120 mL Maximum tolerable volume: 77 mL / Normal Range: 120-180 mL Recto-anal inhibitory reflex: Yes Balloon expulsion: No This exhibit hyperacute rectal sensation with at least 2/3 sensory tests. A recto-anal inhibitory reflex (RAIR) was present. This is a normal reflex. EMG Recruitment: EMG recruitment was performed. The patient shows a normal increase in activity with squeeze, and a appropriate decrease in activity with valsalva. This indicates normal pelvic floor movement, which can be indicative of normal pelvic floor coordination. Clinical correlation is necessary given the discrepancy in findings with balloon expulsion and EMG recruitment. See pelvic floor consultation note for interpretation of test results and treatment plan. Defecography 06/29/22: Initiation and ease of evacuation: Normal Change in anorectal angle during defecation: Normal straightening Development of rectocele: No rectocele. Widening of rectovaginal septum: Enterocele: None Sigmoidocele: None Rectal intussusception: Present - rectoanal Post-evacuation recoil: No significant recoil Vaginal length/support: Shortening of vaginal length with posterior positioning (possible cystocele) Hemoglobin (g/dL) Date Value 05/28/2021 13.3 Hematocrit (%) Date Value 05/28/2021 41.7 WBC (k/uL) Date Value 05/28/2021 9.99 Glucose (mg/dL) Date Value 05/28/2021 99 Potassium (mmol/L) Date Value 05/28/2021 4.1 Sodium (mmol/L) Date Value 05/28/2021 141 Chloride (mmol/L) Date Value 05/28/2021 104 CO2 (mmol/L) Date Value 05/28/2021 27 Creatinine (mg/dL) Date Value 05/28/2021 0.68 BUN (mg/dL) Date Value 05/28/2021 13 Anion Gap (mmol/L) Date Value 05/28/2021 10 Calcium, Total (mg/dL) Date Value 05/28/2021 9.4 Current Outpatient Medications Medication Sig Dispense Refill VASCEPA 1 gram capsule Take 2 capsules by mouth twice daily. ammonium lactate (LAC-HYDRIN) 12 % lotion Apply 1 application to affected area twice daily. Apply to arms and legs twice daily No current facility-administered medications for this visit. ALLERGIES No Known Allergies REVIEW OF SYSTEMS EyesNegative for vision changes, diplopia or epiphora. Ears, Mouth, nose, throat:No problems Cardiovascular: No Problems Respiratory: Negative for cough, wheezing and shortness of breath Gastrointestinal : No problems Genitourinary: Negative and negative Musuloskeletal: Denies significant problems Integumentary: no rashes, lesions, or jaundice Neurological: No history of neurologic problems Endocrine: Negative for cold or heat intolerance, polyuria, polydipsia and goiter. Psychiatric: Cooperative and agreeable Allergic/ Immunologic: Negative All others negative PHYSICAL EXAMINATION BP 124/77 Pulse 90 Temp (Src) 97.4 (Temporal) Ht 5' 2 (1.58m) Wt 165 lb 1.6 oz (74.9kg) SpO2 94% BMI 30.19 kg/(m2). General Appearance: alert, oriented x 3, pleasant and in no acute distress Eyes: Negative for significant chage in vision, and significant vision problems Oropharynx:Lips, tongue, and oral mucosa normal. There is no thrush or oral ulcers. Lungs: breath sounds clear to auscultation bilaterally, no crackles, rhonchi, or wheezes Heart: regular rate and rhythm, no murmurs or gallops Abdomen: not distended, normal bowel sounds, soft and depressible, no guarding or rebound, no palpable mass, no organomegaly Extremities: no cyanosis or edema Skin: no jaundice, no spider angiomas, no palmar erythema Neuro: alert, oriented x 3, pleasant and in no ac (more content not included)... [facility] 07-27-2022 Instructions Lady Jodee Guzman MD - 07/27/2022 5:52 PM EST It was very nice to see you today in clinic! - Continue pelvic PT - Continue fiber and water - Ensure that colonoscopy happens per your schedule (due 2023) documented in this encounter [facility] 07-27-2022 History and physical note documented in this encounter [facility] 07-27-2022 History of Present illness Narrative DEPARTMENT OF GASTROENTEROLOGY - FOLLOW UP VISIT HISTORY OF PRESENT ILLNESS Lorie Mon is a 67 year old lady with history of TBI and subarachnoid hemorrhage after a ladder fall, s/p cholecystectomy (02/05/2013), s/p hysterectomy, s/p bladder sling who presents today for follow-up of overflow diarrhea. UPDATES: She has been doing excellent since increasing the amount of water and fiber. She is having one soft bowel movements daily. She did 2 sessions of pelvic PT (Keggel's) and she is doing some exercises at home. She got rifaximin per per PCP and felt that it helped her also. TEST RESULTS SINCE LAST VISIT Imaging/Procedures: 05/25/22 Anorectal manometry Anorectal Manometry Testing: Strength: Anorectal manometry was performed. Average Pressure Interpretation Rest: 28 mmHg This is below normal range. Normal range is 35-50 mmHg. Squeeze: 53 mmHg This is below normal range. Normal range is 75 - 100 mmHg. There is appropriate incremental change between resting and squeeze pressures which can indicate good pelvic floor movement with squeeze. Sensory: Sensation Volume First sensation : 34 mL / Normal Range: 40-80 mL First urge to defecate: 50 mL / Normal Range: 80-120 mL Maximum tolerable volume: 77 mL / Normal Range: 120-180 mL Recto-anal inhibitory reflex: Yes Balloon expulsion: No This exhibit hyperacute rectal sensation with at least 2/3 sensory tests. A recto-anal inhibitory reflex (RAIR) was present. This is a normal reflex. EMG Recruitment: EMG recruitment was performed. The patient shows a normal increase in activity with squeeze, and a appropriate decrease in activity with valsalva. This indicates normal pelvic floor movement, which can be indicative of normal pelvic floor coordination. Clinical correlation is necessary given the discrepancy in findings with balloon expulsion and EMG recruitment. See pelvic floor consultation note for interpretation of test results and treatment plan. Defecography 06/29/22: Initiation and ease of evacuation: Normal Change in anorectal angle during defecation: Normal straightening Development of rectocele: No rectocele. Widening of rectovaginal septum: Enterocele: None Sigmoidocele: None Rectal intussusception: Present - rectoanal Post-evacuation recoil: No significant recoil Vaginal length/support: Shortening of vaginal length with posterior positioning (possible cystocele) Hemoglobin (g/dL) Date Value 05/28/2021 13.3 Hematocrit (%) Date Value 05/28/2021 41.7 WBC (k/uL) Date Value 05/28/2021 9.99 Glucose (mg/dL) Date Value 05/28/2021 99 Potassium (mmol/L) Date Value 05/28/2021 4.1 Sodium (mmol/L) Date Value 05/28/2021 141 Chloride (mmol/L) Date Value 05/28/2021 104 CO2 (mmol/L) Date Value 05/28/2021 27 Creatinine (mg/dL) Date Value 05/28/2021 0.68 BUN (mg/dL) Date Value 05/28/2021 13 Anion Gap (mmol/L) Date Value 05/28/2021 10 Calcium, Total (mg/dL) Date Value 05/28/2021 9.4 Current Outpatient Medications Medication Sig Dispense Refill VASCEPA 1 gram capsule Take 2 capsules by mouth twice daily. ammonium lactate (LAC-HYDRIN) 12 % lotion Apply 1 application to affected area twice daily. Apply to arms and legs twice daily No current facility-administered medications for this visit. ALLERGIES No Known Allergies REVIEW OF SYSTEMS EyesNegative for vision changes, diplopia or epiphora. Ears, Mouth, nose, throat:No problems Cardiovascular: No Problems Respiratory: Negative for cough, wheezing and shortness of breath Gastrointestinal : No problems Genitourinary: Negative and negative Musuloskeletal: Denies significant problems Integumentary: no rashes, lesions, or jaundice Neurological: No history of neurologic problems Endocrine: Negative for cold or heat intolerance, polyuria, polydipsia and goiter. Psychiatric: Cooperative and agreeable Allergic/ Immunologic: Negative All others negative PHYSICAL EXAMINATION BP 124/77 Pulse 90 Temp (Src) 97.4 (Temporal) Ht 5' 2 (1.58m) Wt 165 lb 1.6 oz (74.9kg) SpO2 94% BMI 30.19 kg/(m^2). General Appearance: alert, oriented x 3, pleasant and in no acute distress Eyes: Negative for significant chage in vision, and significant vision problems Oropharynx:Lips, tongue, and oral mucosa normal. There is no thrush or oral ulcers. Lungs: breath sounds clear to auscultation bilaterally, no crackles, rhonchi, or wheezes Heart: regular rate and rhythm, no murmurs or gallops Abdomen: not distended, normal bowel sounds, soft and depressible, no guarding or rebound, no palpable mass, no organomegaly Extremities: no cyanosis or edema Skin: no jaundice, no spider angiomas, no palmar erythema Neuro: alert, oriented x 3, pleasant and in no acute distress IMPRESSION Lorie Mon is a 67 year old lady with history of TBI and subarachnoid hemorrhage after a ladder fall, s/p cholecystectomy (02/05/2013), s/p hysterectomy, s/p bladder sling who presents today for follow-up of overflow diarrhea. She is doing great since she started fiber and water, and pelvic PT. Seems that improving her improving the sphincter tone, rifaximin, water, and fiber helped her. - Continue pelvic PT - Continue fiber and water - Ensure that colonoscopy happens per her schedule as she had a tubular adenoma in 2019- patient reports that she has been followed closely for colon polyps and repeat was recommended in 2023 which she intends to pursue (JPA) Plan is to follow up as needed (prn). Discussed with Dr KRISTAN Carrillo. Lady Jodee Guzman MD July 27, 2022 GI STAFF I reviewed the history and physical obtained and documented by the fellow and I personally participated in the plascencia components. The following comments revise or confirm relevant plascencia elements of the fellow's note: 67 yo female here for follow up of chronic symptoms of intermittent diarrhea and incontinence. ARM showed weak resting and squeeze pressures; could not expel balloon. She is doing better after pelvic floor PT (including Keegel excercises) and increased fiber. Also notes that recent course of Xifaxan helps with firming up stools- ?if she could have had element of SIBO. I discussed the case and the plans with the fellow with the following comments: Agree with plan as listed by Dr. Guzman. She is doing well currently so will continue current management Carlton Carrillo MD documented in this encounter [facility] 06-30-2022 Note HNO ID: [id number] Author: Risa Hodge PT Service: ? Author Type: Physical Therapist Type: Progress Notes Filed: 06/30/2022 7:26 AM Note Text: Episode Visit Count: 3 Therapist That Will Accept/Oversee The Plan Of Care: Risa Hodge Start of Care Date: 05/30/22 Onset Date: 05/30/07 Plan of Care Certification Date: 05/30/22 Next Certification Due Date: 07/29/22 Patient Identified by Name and Date of : Yes REHABILITATION AND SPORTS THERAPY PHYSICAL THERAPY DISCONTINUANCE OF CARE PLAN OF CARE UPDATE: Assessment: Lorie Dumont Gustavokarma is discontinued from Physical Therapy services due to goal achievement and maximal benefit.. Patient was seen for 3 visits from Start of Care Date: 05/30/22 to 06/30/2022 and treatment included: Therapeutic exercise and Self-penitentiary management. Goals for Episode of Care: created on 05/30/22 Updated on: 06/29/2022 [place] in home exercise program.-MET Patient will increase flexibility of B hamstrings to WNL to improve Mechanics.-MET Incontinence: Increase strength of pelvic floor to Power: at least 3/5-MET Patient reports increased ability to fully empty bowels-MET Patient demonstrates improved muscle dynamics with good ability to lengthen pelvic floor muscles-MET Patient reports at least 75% improvement in overall bowel function compared to IE.-MET Patient Goals: improve bowel function SUBJECTIVE: Patient Reason for Visit: Pt reports one episode of diarrhea since last session, thinks it was due to eating tomatoe soup. Pt reports no FI for about a month now, able to have a bowel movement without straining. Pt reports fair compliance with HEP, pleased with progress, feels comfortable continuing on her own at home. Pain: Pain Pain Level: 0 Post Treatment Pain Post Treatment Pain Level: 0 PROMIS Scales Higher is Better 05/10/2022 GH Physical - Score 54.1 (Very Good) GH Physical - Percentile 66 % GH Mental - Score 53.3 (Very Good) GH Mental - Percentile 63 % T-scores: mean of general population = 50. 5 points is clinically meaningfully difference Percentiles provide an indication of how the patient's score ranks in relation to the general population. Higher percentile rankings indicate better function/quality of life. 50th percentile is the average of the general population and indicates half of respondents had a worse score. T-scores: mean of general population = 50. 5 points is clinically meaningfully difference Percentiles provide an indication of how the patient's score ranks in relation to the general population. Higher percentile rankings indicate better function/quality of life. 50th percentile is the average of the general population and indicates half of respondents had a worse score. OBJECTIVE MEASURES WITH LEVEL OF FUNCTION: Pelvic Floor Difficulty evacuating / Excessive Straining: No Incomplete emptying: No Bowel Movement Consistency ([place]) : 4: Like a sausage or snake, smooth and soft Fecal incontinence: No Pelvic Floor Muscle Assessment Consent for pelvic assessment/testing and treatment: Patient was educated regarding pelvic floor physical therapy assessment/treatment which may include pelvic floor and girdle muscle assessment externally or internally (vaginal or rectal approach).;Patient verbalized consent for the above treatment approaches today. Patient understands they have control of the treatment and an opportunity to stop treatment at any time. Pelvic Floor Muscle Assessment: PERFECT;Muscle Dynamics Power: 3 Endurance: 8 Fast Reps: 10 Contracton Pressure: Moderate squeeze, felt all the way around finger surface Duration of Contraction: >3 seconds Recruitment of pelvic floor muscles: Coordinated Range of Motion: Normal Ability to Lengthen pelvic floor: Yes Pelvic Floor Manual Assessment Pelvic Floor Tenderness/Hyperactivity: Tested Vaginally in Tested Vaginally in : Supine/hooklying (No tightness/tenderness noted.) LE Flexibility Flexibility: Hamstring Flexibility R Hamstring Flexibility: WNL L Hamstring Flexibility: WNL TREATMENT: Therapeutic Exercise: 1: Reassessment 2: *mini squat with PF bracing, 2x10 3: *standing hip extension with PF bracing, 2x10 each 4: Discussed discharge planning Skilled Intervention: Patient was educated in proper exercise technique and purpose for exercises. Reviewed and educated patient on additions/changes for home exercise program as above (*). Skilled judgment was provided in selection of appropriate interventions. Provided written instruction for home exercise program to facilitate proper performance and compliance. Billing Therapeutic Exercise Treatment Minutes: 25 Total Treatment Time Minutes (timed/untimed): 25 Risa Hodge, PT [facility] 06-30-2022 History of Present illness Narrative Episode Visit Count: 3 Therapist That Will Accept/Oversee The Plan Of Care: Risa Hodge Start of Care Date: 05/30/22 Onset Date: 05/30/07 Plan of Care Certification Date: 05/30/22 Next Certification Due Date: 07/29/22 Patient Identified by Name and Date of : Yes REHABILITATION AND SPORTS THERAPY PHYSICAL THERAPY DISCONTINUANCE OF CARE PLAN OF CARE UPDATE: Assessment: Lorie Mon is discontinued from Physical Therapy services due to goal achievement and maximal benefit.. Patient was seen for 3 visits from Start of Care Date: 05/30/22 to 06/30/2022 and treatment included: Therapeutic exercise and Self-penitentiary management. Goals for Episode of Care: created on 05/30/22 Updated on: 06/29/2022 [place] in home exercise program.-MET Patient will increase flexibility of B hamstrings to WNL to improve Mechanics.-MET Incontinence: Increase strength of pelvic floor to Power: at least 3/5-MET Patient reports increased ability to fully empty bowels-MET Patient demonstrates improved muscle dynamics with good ability to lengthen pelvic floor muscles-MET Patient reports at least 75% improvement in overall bowel function compared to IE.-MET Patient Goals: improve bowel function SUBJECTIVE: Patient Reason for Visit: Pt reports one episode of diarrhea since last session, thinks it was due to eating tomatoe soup. Pt reports no FI for about a month now, able to have a bowel movement without straining. Pt reports fair compliance with HEP, pleased with progress, feels comfortable continuing on her own at home. Pain: Pain Pain Level: 0 Post Treatment Pain Post Treatment Pain Level: 0 PROMIS Scales Higher is Better 05/10/2022 GH Physical - Score 54.1 (Very Good) GH Physical - Percentile 66 % GH Mental - Score 53.3 (Very Good) GH Mental - Percentile 63 % T-scores: mean of general population = 50. 5 points is clinically meaningfully difference Percentiles provide an indication of how the patient's score ranks in relation to the general population. Higher percentile rankings indicate better function/quality of life. 50th percentile is the average of the general population and indicates half of respondents had a worse score. T-scores: mean of general population = 50. 5 points is clinically meaningfully difference Percentiles provide an indication of how the patient's score ranks in relation to the general population. Higher percentile rankings indicate better function/quality of life. 50th percentile is the average of the general population and indicates half of respondents had a worse score. OBJECTIVE MEASURES WITH LEVEL OF FUNCTION: Pelvic Floor Difficulty evacuating / Excessive Straining: No Incomplete emptying: No Bowel Movement Consistency ([place]) : 4: Like a sausage or snake, smooth and soft Fecal incontinence: No Pelvic Floor Muscle Assessment Consent for pelvic assessment/testing and treatment: Patient was educated regarding pelvic floor physical therapy assessment/treatment which may include pelvic floor and girdle muscle assessment externally or internally (vaginal or rectal approach).;Patient verbalized consent for the above treatment approaches today. Patient understands they have control of the treatment and an opportunity to stop treatment at any time. Pelvic Floor Muscle Assessment: PERFECT;Muscle Dynamics Power: 3 Endurance: 8 Fast Reps: 10 Contracton Pressure: Moderate squeeze, felt all the way around finger surface Duration of Contraction: >3 seconds Recruitment of pelvic floor muscles: Coordinated Range of Motion: Normal Ability to Lengthen pelvic floor: Yes Pelvic Floor Manual Assessment Pelvic Floor Tenderness/Hyperactivity: Tested Vaginally in Tested Vaginally in : Supine/hooklying (No tightness/tenderness noted.) LE Flexibility Flexibility: Hamstring Flexibility R Hamstring Flexibility: WNL L Hamstring Flexibility: WNL TREATMENT: Therapeutic Exercise: 1: Reassessment 2: *mini squat with PF bracing, 2x10 3: *standing hip extension with PF bracing, 2x10 each 4: Discussed discharge planning Skilled Intervention: Patient was educated in proper exercise technique and purpose for exercises. Reviewed and educated patient on additions/changes for home exercise program as above (*). Skilled judgment was provided in selection of appropriate interventions. Provided written instruction for home exercise program to facilitate proper performance and compliance. Billing Therapeutic Exercise Treatment Minutes: 25 Total Treatment Time Minutes (timed/untimed): 25 Risa Hodge PT documented in this encounter [facility] 06-29-2022 Note HNO ID: [id number] Author: RT Eli(R) Service: Radiology Author Type: Technologist Type: Progress Notes Filed: 06/29/2022 2:43 PM Note Text: Radiology Service Progress Note PATIENT NAME: Lorie Mon DATE OF SERVICE: June 29, 2022 TIME: 2:43 PM PATIENT IDENTITY VERIFICATION COMPLETED USING TWO (2) IDENTIFIERS: Name and Date of confirmed by patient verbally. FALL SCREENING: Has the patient had 2 falls in the last year or 1 fall with injury or currently using an Ambulatory Assistive Device (Walker, Cane, Wheelchair, Crutches, etc.)? No PATIENT GENDER DATA: Female. status: : No status: NO. PATIENT RELEVANT IMPLANT DATA REVIEWED: Not Applicable RADIOLOGY DEPARTMENT: General X-ray: Exam(s) Completed: GI/ Procedure(s): Defecating Proctogram PERIPHERAL IV DATA: Not applicable SIGNED BY: RT Eli(R) June 29, 2022 2:43 PM [facility] 06-29-2022 History of Present illness Narrative Radiology Service Progress Note PATIENT NAME: Lorie Mon DATE OF SERVICE: June 29, 2022 TIME: 2:43 PM PATIENT IDENTITY VERIFICATION COMPLETED USING TWO (2) IDENTIFIERS: Name and Date of confirmed by patient verbally. FALL SCREENING: Has the patient had 2 falls in the last year or 1 fall with injury or currently using an Ambulatory Assistive Device (Walker, Cane, Wheelchair, Crutches, etc.)? No PATIENT GENDER DATA: Female. status: : No status: NO. PATIENT RELEVANT IMPLANT DATA REVIEWED: Not Applicable RADIOLOGY DEPARTMENT: General X-ray: Exam(s) Completed: GI/ Procedure(s): Defecating Proctogram PERIPHERAL IV DATA: Not applicable SIGNED BY: RT Eli(R) June 29, 2022 2:43 PM documented in this encounter [facility] 06-16-2022 Note HNO ID: [id number] Author: Risa Hodge PT Service: ? Author Type: Physical Therapist Type: Progress Notes Filed: 06/16/2022 7:40 AM Note Text: Episode Visit Count: 2 Therapist That Will Accept/Oversee The Plan Of Care: Risa Hodge Start of Care Date: 05/30/22 Onset Date: 05/30/07 Plan of Care Certification Date: 05/30/22 Next Certification Due Date: 07/29/22 Patient Identified by Name and Date of : Yes REHABILITATION AND SPORTS THERAPY PHYSICAL THERAPY TREATMENT NOTE ASSESSMENT: Lorie Mon tolerated the session with no issues. She demonstrated good PF mm coordination by being able to perform both PF contraction and lengthening with visual assistance from surface EMG biofeedback. The patient will continue to benefit from ongoing skilled physical therapy to progress toward set goals. PLAN FOR NEXT VISIT: reassessment SUBJECTIVE: Patient Reason for Visit: Pt reports increasing fiber in diet and starting a new medication, which has seemed to help bowels. Pt reports no straining with a bowel movement, only felt like she didn't fully empty 2x since last session. Pt reports bowels have improved in their regularity. Pt reports improvement in nausea. Pain: Pain Pain Level: 0 Post Treatment Pain Post Treatment Pain Level: 0 OBJECTIVE MEASURES WITH LEVEL OF FUNCTION: Pelvic Floor Difficulty evacuating / Excessive Straining: No Incomplete emptying: Sometimes (2x since last session) Fecal incontinence: No Pelvic Floor Surface EMG: Patient Position: sidelying Rest tone: 7 uV Flick strength: 20 uV Pt performed 3 quick flicks within 10 sec. Pt able to hold a 7 uV pelvic floor contraction for 3 seconds before demonstrating muscle fatigue. Pt able to demonstrate good PF mm coordination with performing PF contraction and lengthening TREATMENT: Therapeutic Exercise: 1: Reviewed PF mm ROM with visual assistance from surface EMG biofeedback 2: *piriformis stretch, [id number] each 3: *BKTC stretch, [id number] 4: *LTR, [id number] each 5: *bridge with glute activation, 2x10 Skilled Intervention: Patient was educated in proper exercise technique and purpose for exercises. Reviewed and educated patient on additions/changes for home exercise program as above (*). Skilled judgment was provided in selection of appropriate interventions. Provided written instruction for home exercise program to facilitate proper performance and compliance. Self-Half-Way Management: 1: *self-colon massage, proper direction for optimal bowel function Skilled Intervention: Skilled judgment in the selection of proper modification for activity of daily living/home management based on clinical presentation, deficits, and needs. Educated the patient regarding recommendations and provided written instruction to facilitate compliance. Billing Therapeutic Exercise Treatment Minutes: 35 Self-Care/Home Management Treatment Minutes: 4 Total Treatment Time Minutes (timed/untimed): 39 Risa Hodge, PT [facility] 06-16-2022 History of Present illness Narrative Episode Visit Count: 2 Therapist That Will Accept/Oversee The Plan Of Care: Risa Hodge Start of Care Date: 05/30/22 Onset Date: 05/30/07 Plan of Care Certification Date: 05/30/22 Next Certification Due Date: 07/29/22 Patient Identified by Name and Date of : Yes REHABILITATION AND SPORTS THERAPY PHYSICAL THERAPY TREATMENT NOTE ASSESSMENT: Lorie Mon tolerated the session with no issues. She demonstrated good PF mm coordination by being able to perform both PF contraction and lengthening with visual assistance from surface EMG biofeedback. The patient will continue to benefit from ongoing skilled physical therapy to progress toward set goals. PLAN FOR NEXT VISIT: reassessment SUBJECTIVE: Patient Reason for Visit: Pt reports increasing fiber in diet and starting a new medication, which has seemed to help bowels. Pt reports no straining with a bowel movement, only felt like she didn't fully empty 2x since last session. Pt reports bowels have improved in their regularity. Pt reports improvement in nausea. Pain: Pain Pain Level: 0 Post Treatment Pain Post Treatment Pain Level: 0 OBJECTIVE MEASURES WITH LEVEL OF FUNCTION: Pelvic Floor Difficulty evacuating / Excessive Straining: No Incomplete emptying: Sometimes (2x since last session) Fecal incontinence: No Pelvic Floor Surface EMG: Patient Position: sidelying Rest tone: 7 uV Flick strength: 20 uV Pt performed 3 quick flicks within 10 sec. Pt able to hold a 7 uV pelvic floor contraction for 3 seconds before demonstrating muscle fatigue. Pt able to demonstrate good PF mm coordination with performing PF contraction and lengthening TREATMENT: Therapeutic Exercise: 1: Reviewed PF mm ROM with visual assistance from surface EMG biofeedback 2: *piriformis stretch, [id number] each 3: *BKTC stretch, [id number] 4: *LTR, [id number] each 5: *bridge with glute activation, 2x10 Skilled Intervention: Patient was educated in proper exercise technique and purpose for exercises. Reviewed and educated patient on additions/changes for home exercise program as above (*). Skilled judgment was provided in selection of appropriate interventions. Provided written instruction for home exercise program to facilitate proper performance and compliance. Self-Half-Way Management: 1: *self-colon massage, proper direction for optimal bowel function Skilled Intervention: Skilled judgment in the selection of proper modification for activity of daily living/home management based on clinical presentation, deficits, and needs. Educated the patient regarding recommendations and provided written instruction to facilitate compliance. Billing Therapeutic Exercise Treatment Minutes: 35 Self-Care/Home Management Treatment Minutes: 4 Total Treatment Time Minutes (timed/untimed): 39 Risa Hodge PT documented in this encounter [facility] 05-30-2022 Note HNO ID: [id number] Author: Risa Hodge PT Service: ? Author Type: Physical Therapist Type: Progress Notes Filed: 05/30/2022 8:39 AM Note Text: Episode Visit Count: 1 Therapist That Will Accept/Oversee The Plan Of Care: Risa Hodge Start of Care Date: 05/30/22 Onset Date: 05/30/07 Plan of Care Certification Date: 05/30/22 Next Certification Due Date: 07/29/22 Patient Identified by Name and Date of : Yes REHABILITATION AND SPORTS THERAPY PHYSICAL THERAPY EVALUATION PLAN OF CARE: Assessment: Lorie Mon presents with chief complaint of chronic diarrhea that interferes with bowel function . She presents with impairments in decreased strength and ROM of pelvic floor; decreased flexibility in B hamstrings; impaired bowel function. PROMIS? (Patient-Reported Outcomes Measurement Information System) scores were reviewed and all domains identified as within normal limits. Prognosis for therapy is Fair due to: clinical presentation;chronic nature of impairments . She will benefit from skilled therapy services to meet the goals established for this plan of care as noted below. Goals for Episode of Care: created on 05/30/22 through 07/29/22 [place] in home exercise program. Patient will increase flexibility of B hamstrings to WNL to improve mechanics. Incontinence: Increase strength of pelvic floor to Power: at least 3/5 Patient reports increased ability to fully empty bowels Patient demonstrates improved muscle dynamics with good ability to lengthen pelvic floor muscles Patient reports at least 75% improvement in overall bowel function compared to IE. Patient Goals: improve bowel function Planned Interventions, Frequency, and Duration: Current Frequency: 1x every other week Duration: 4 weeks (reassess at 4 weeks and progress as indicated) Total Number of Visits Planned: 2 Planned Treatment Interventions: Therapeutic exercise (91935);Manual therapy (02349);Self-penitentiary management ([id number]);Patient/Family/Caregiver Education PLAN FOR NEXT VISIT: biofeedback, progress exercises as tolerated Patient demonstrates good understanding of plan of care and treatment. The above goals and plan of care were discussed and agreed upon by patient/family. SUBJECTIVE: Pt reports intermittent diarrhea for the past 15 years. Pt reports occasionally having bowel urgency 5-15 minutes after eating, if she makes it past 30 minutes, she knows she's okay. Pt reports noticing carbonated sodas, tomatoes, and chocolate flare up bowels the most. Pt reports food is the only trigger for bowel issues, has abdominal pain sometimes after eating, which then leads to diarrhea flare-ups. Patient Goals: improve bowel function Functional Limitations: bowel function Prior Level of Function: Independent without limitations Relevant History Past Relevant Medical Conditions: (see note) Past Relevant Surgical Conditions: (see note) Employment: Retired Recreation / Current Exercise: walking No past medical history on file. PAST SURGICAL HISTORY Procedure Laterality Date KNEE SURGERY HX Left 2019 TONSILLECTOMY AND ADENOIDECTOMY Intake Information: Prescription present Previous Treatment: None Falls Interview: Fall with injury in the last year Falls Intervention: (fell off ladder, no other falls afterwards) Aquatic Screen: No Pain: Pain Pain Level: 0 Post Treatment Pain Post Treatment Pain Level: 0 PROMIS Scales Higher is Better 05/10/2022 GH Physical - Score 54.1 (Very Good) GH Physical - Percentile 66 % GH Mental - Score 53.3 (Very Good) GH Mental - Percentile 63 % T-scores: mean of general population = 50. 5 points is clinically meaningfully difference Percentiles provide an indication of how the patient's score ranks in relation to the general population. Higher percentile rankings indicate better function/quality of life. 50th percentile is the average of the general population and indicates half of respondents had a worse score. T-scores: mean of general population = 50. 5 points is clinically meaningfully difference Percentiles provide an indication of how the patient's score ranks in relation to the general population. Higher percentile rankings indicate better function/quality of life. 50th percentile is the average of the general population and indicates half of respondents had a worse score. OBJECTIVE MEASURES WITH LEVEL OF FUNCTION: Pelvic Floor Pregnancies: 2 Births: 2 Vaginal Delivery: Standard Pain with penetration: No Urinary/Bowel History : Urinary History;Bowel History Difficulty starting stream: No Incomplete emptying: No Stress Incontinence: No Urgency: No Nocturia (times per night): 1 Daytime Frequency (hours): 2 Fluid Intake: Water;Milk (8 oz measurements) Water : 4 Milk : 1 Difficulty evacuating / Excessive Straining: No Incomplete emptying: Sometimes Bowel Movement Frequency: 2x/day Bowel Movement Consi (more content not included)... [facility] 05-25-2022 History and physical note PELVIC FLOOR COLON & RECTAL SURGERY Reason for visit: Review anorectal manometry and EMG results History of Present Illness: Lorie Mon is a 67 year old FEMALE who was seen at the request of Dr. Laura for anorectal manometry testing, rectal sensation testing and EMG recruitment. Ms. Mon was referred for testing due to symptoms of overflow diarrhea. Office visit with Dr. Guzman on 05/11/2022 HISTORY OF PRESENT ILLNESS Lorie Mon is a 67 year old lady with history of TBI and subarachnoid hemorrhage after a ladder fall, s/p cholecystectomy (02/05/2013), s/p hysterectomy, s/p rectal repair? who presents today for an evaluation of diarrhea. She states that the diarrhea started about 15 years ago. It has got worse the past couple years. She can have a couple days without BMs. Then she has what she calls as an attack: after eating a meal, she has cramping and bloating followed by 5 serial bowel movements that start out solid and then become watery. Once this starts, she cannot control her BMs and has had several accidents. She takes imodium, which appears to help. Fiber has helped in the past. Fried foods and soda make it worse. Her only medication is icosapent ethyl, which she stopped and did not notice any improvements. Has gained weight (40 lbs since the cholecystectomy). No blood in the stool. No nausea or vomiting. She had 2 vaginal deliveries. The last one, she had a tear that went through the rectum. Also has urinary incontinence. Goes a few days without a BM and then eats a meal and has an attack of a few Bms that come at once with cramping and bloating. This has been happening for 15 years but has gotten worse in the last 6 months. Has a BM normally twice per day. Normally takes imodium before going out which ended up being once or twice a week but was told to stop and since has only had one attack. Denies rectal pain. Has abdominal pain during BM and it goes away after. After the third BM it turns bright yellow. Does not have any straining. For first BM of the day does not have urgency but if it's repeating then it is urgent and sometimes can't make it to the bathroom. Has noticed chocolate and soda makes it worse. Imodium AD did make it better. First BM is usually Type 4 and proceeds to Type 5 and then Type 6 progressively. Does take a fiber supplement, 4 tbsp per day. Has noticed some improvement after starting this. Does not feel like she empties completely. Prior hysterectomy: Yes, approx 2001 Urinary Symptoms: Urinary incontinence: with coughing, sneezing Urinary frequency: Yes Obstetric history: 2 Para 2 Vaginal delivery: 2 vaginal births. - Episiotomy: Yes - Tear: Yes - Forceps No Previous Testing Results include: Colonoscopy: Yes Date:2019 Nothing abnormal most recently but a few times ago had something that needed to be watched closely Manometry: today No past medical history on file. PAST SURGICAL HISTORY Procedure Laterality Date KNEE SURGERY HX Left 2019 TONSILLECTOMY & ADENOIDECTOMY <AGE 13 Current Outpatient Medications Medication Sig Dispense Refill VASCEPA 1 gram capsule Take 2 capsules by mouth twice daily. ammonium lactate (LAC-HYDRIN) 12 % lotion Apply 1 application to affected area twice daily. Apply to arms and legs twice daily No current facility-administered medications for this visit. ALLERGIES No Known Allergies FAMILY HISTORY Problem Relation Age of Onset Breast Cancer Mother Cancer Father Social History Tobacco Use Smoking status: Never Smokeless tobacco: Never Substance Use Topics Alcohol use: Yes Drug use: Never Physical Exam: There were no vitals filed for this visit. General Appearance: Well appearing, alert, in no acute distress, well-hydrated, well nourished. Anorectal: Perianal skin is intact. No erythema, induration or excoriation. No fissure, fistula or external hemorrhoids. Digital Rectal Exam: Anus: closed Resting tone: WEAK Squeeze tone: WEAK Valsalva: pelvic floor relaxation is Normal. Puborectalis: non-tender Rectocele: Absent Full thickness rectal prolapse: No Assessment Anorectal Physiology tests reviewed at today's visit: Reason for testing: constipation and diarrhea Ileoanal pouch: No Anorectal Manometry Testing: Strength: Anorectal manometry was performed. Average Pressure Interpretation Rest: 28 mmHg This is below normal range. Normal range is 35-50 mmHg. Squeeze: 53 mmHg This is below normal range. Normal range is 75 - 100 mmHg. There is appropriate incremental change between resting and squeeze pressures which can indicate good pelvic floor movement with squeeze. Sensory: Sensation Volume First sensation : 34 mL / Normal Range: 40-80 mL First urge to defecate: 50 mL / Normal Range: 80-120 mL Maximum tolerable volume: 77 mL / Normal Range: 120-180 mL Recto-anal inhibitory reflex: Yes Balloon expulsion: No This exhibit hyperacute rectal sensation with at least 2/3 sensory tests. A recto-anal inhibitory reflex (RAIR) was present. This is a normal reflex. EMG Recruitment: EMG recruitment was performed. The patient shows a normal increase in activity with squeeze, and a appropriate decrease in activity with valsalva. This indicates normal pelvic floor movement, which can be indicative of normal pelvic floor coordination. Clinical correlation is necessary given the discrepancy in findings with balloon expulsion and EMG recruitment. See pelvic floor consultation note for interpretation of test results and treatment plan. Assessment and Plan: Lorie Mon is a 67 year old FEMALE who was referred for anorectal physiology testing due to symptoms of constipation and diarrhea. The testing that was performed today includes anorectal manometry, rectal sensory testing, balloon expulsion and EMG recruitment. These test results were reviewed with Lorie Mon and are listed above. Overall, these tests show normal, abnormal anal sphincter strength, hyperacute rectal sensation, and normal pelvic floor movement. After review of the patient's history, physical exam findings, anorectal manometry and EMG results, the patient may have obstructive defecation due to non-relaxation of the puborectalis which could contribute to their symptoms. Recommendations for this include: 1. Stay hydrated by drinking at least 8 glasses of water per day. This will help to keep your bowel habits more regular. 2. Continue taking your bowel regimen as prescribed. 3. Pelvic floor physical therapy. The goal of this therapy is to retrain the pelvic floor muscles to more appropriately relax and therefore improve evacuation of stool. Physical therapy is the most effective way to get the pelvic floor muscles moving and coordinating correctly. Pelvic floor PT was ordered today, reviewed scheduling process with patient and how to find local therapists. 4. There are no surgical options to improve pelvic muscle coordination. 5. Pelvic floor dysfunction handout reviewed and provided to patient. 6. Follow up with your referring physician. A copy of your test results will be sent to this physician. Jaida Burgos APRN.CNP Pelvic Floor Colorectal Surgery I spent a total of 54 minutes on the date of the service which included preparing to see the patient, [id number] patient care, completing clinical documentation, performing a medically appropriate examination, counseling and educating the patient/family/caregiver, and ordering medications, tests, or procedures. documented in this encounter [facility] 05-25-2022 Instructions Shira Lange APRN.CNP - 05/25/2022 3:03 PM EST 1. Stay hydrated by drinking at least 8 glasses of water per day. This will help to keep your bowel habits more regular. 2. Continue taking your bowel regimen as prescribed. 3. Pelvic floor physical therapy. The goal of this therapy is to retrain the pelvic floor muscles to more appropriately relax and therefore improve evacuation of stool. Physical therapy is the most effective way to get the pelvic floor muscles moving and coordinating correctly. Pelvic floor PT was ordered today, reviewed scheduling process with patient and how to find local therapists. 4. There are no surgical options to improve pelvic muscle coordination. 5. Pelvic floor dysfunction handout reviewed and provided to patient. 6. Follow up with your referring physician. A copy of your test results will be sent to this physician. documented in this encounter [facility] 05-11-2022 Note HNO ID: [id number] Author: Artie Laura MD Service: ? Author Type: Physician Type: Progress Notes Filed: 05/24/2022 2:03 PM Note Text: DEPARTMENT OF GASTROENTEROLOGY - NEW PATIENT/CONSULT REASON FOR VISIT Lorie Mon is a 67 year old lady who is scheduled at the request of Macy Sorenson for Diarrhea and Gas. My final recommendations will be communicated back to the requesting physician by the way of the shared medical record, fax, or via US Mail HISTORY OF PRESENT ILLNESS Loire Mon is a 67 year old lady with history of TBI and subarachnoid hemorrhage after a ladder fall, s/p cholecystectomy (02/05/2013), s/p hysterectomy, s/p rectal repair? who presents today for an evaluation of diarrhea. She states that the diarrhea started about 15 years ago. It has got worse the past couple years. She can have a couple days without BMs. Then she has what she calls as an attack: after eating a meal, she has cramping and bloating followed by 5 serial bowel movements that start out solid and then become watery. Once this starts, she cannot control her BMs and has had several accidents. She takes imodium, which appears to help. Fiber has helped in the past. Fried foods and soda make it worse. Her only medication is icosapent ethyl, which she stopped and did not notice any improvements. Has gained weight (40 lbs since the cholecystectomy). No blood in the stool. No nausea or vomiting. She had 2 vaginal deliveries. The last one, she had a tear that went through the rectum. Also has urinary incontinence. PAST SURGICAL HISTORY Procedure Laterality Date KNEE SURGERY HX Left 2019 TONSILLECTOMY AND ADENOIDECTOMY Current Outpatient Medications Medication Sig Dispense Refill VASCEPA 1 gram capsule Take 2 capsules by mouth twice daily. ammonium lactate (LAC-HYDRIN) 12 % lotion Apply 1 application to affected area twice daily. Apply to arms and legs twice daily No current facility-administered medications for this visit. ALLERGIES No Known Allergies Social History Tobacco Use Smoking status: Never Smokeless tobacco: Never Substance Use Topics Alcohol use: Yes Drug use: Never FAMILY HISTORY (grandparents, parents, brothers, sisters, aunts, or uncles) Liver Problems: No Ulcerative Colitis: No Crohn's Disease: No Colon Cancer: No Colon Polyps: No IBS: No Celiac disease: No Bleeding Disorders: No GI SPECIFIC REVIEW OF SYMPTOMS Difficulty swallowing / foods sticking in throat: no Heartburn: yes Hoarseness: no Chronic cough: no Regurgitation: no Chest pain: no Filling up quickly at meals:no Loss of appetite: no Nausea: no Vomiting: no Abdominal pain: yes Recent change in bowel movements: yes Bloody or black, bowel movements: no Constipation: no Diarrhea: yes Loss of control of bowel movements: yes Night sweats: no Fever: no Chills: no Thought or memory problems: no Fluid in abdomen (ascites): no Prominent leg swelling: no Vomiting blood: no Recent change in weight: No REVIEW OF SYSTEMS EyesNegative for vision changes, diplopia or epiphora. Ears, Mouth, nose, throat:No problems Cardiovascular: No Problems Respiratory: Negative for cough, wheezing and shortness of breath Gastrointestinal : No problems Genitourinary: negative Musuloskeletal: Denies significant problems Integumentary: no rashes, lesions, or jaundice Neurological: No history of neurologic problems Endocrine: Negative for cold or heat intolerance, polyuria, polydipsia and goiter. Psychiatric: Cooperative and agreeable Allergic/ Immunologic: Negative All others negative PHYSICAL EXAMINATION BP 125/78 Pulse 72 Temp (Src) 97.6 (Temporal) Ht 5' 2 (1.58m) Wt 162 lb (73.5kg) SpO2 96% BMI 29.62 kg/(m2). General Appearance: Well appearing, alert, in no acute distress, well-hydrated, well nourished. Eyes: PERRLA, conjunctiva and sclera normal Oropharynx: Lips, tongue, and oral mucosa normal. There is no thrush or oral ulcers. Lungs:breath sounds clear to auscultation bilaterally, no crackles, rhonchi, or wheezes Heart: regular rate and rhythm, no murmurs or gallops. Abdomen: not distended, normal bowel sounds, soft and depressible, no guarding or rebound, no palpable mass, no organomegaly Rectal exam: Decreased resting anal sphincter tone. Decreased tone upon squeezing in the anal sphincter. Unable to expel my finger Extremities: no cyanosis or edema Skin: no jaundice, no spider angiomas, no palmar erythema Neuro:alert, oriented x 3, pleasant and in no acute distress RECENT LABS CBC: WBC (k/uL) Date Value 05/28/2021 9.99 05/27/2021 11.53 (H) Hematocrit (%) Date Value 05/28/2021 41.7 MCV (fL) Date Value 05/28/2021 89.7 Platelet Count (k/uL) Date Value 05/28/2021 210 Comprehensive Metabolic Panel: Glucose (mg/dL) Date Value 05/28/2021 99 BUN (mg/dL) Date Value 05/28/2021 13 Cr (more content not included)... [facility] 05-11-2022 Instructions Lady Jodee Guzman MD - 05/11/2022 1:53 PM EDT - It was very nice to see you in clinic today - We feel that the issues arise from problems with the pelvic floor - Please increase the fiber in your diet - Stop taking imodium - Complete the 2 tests and I will call you back with the results and next steps documented in this encounter [facility] 05-11-2022 History of Present illness Narrative DEPARTMENT OF GASTROENTEROLOGY - NEW PATIENT/CONSULT REASON FOR VISIT Lorie Mon is a 67 year old lady who is scheduled at the request of Macy Sorenson for Diarrhea and Gas. My final recommendations will be communicated back to the requesting physician by the way of the shared medical record, fax, or via US Mail HISTORY OF PRESENT ILLNESS Lorie Mon is a 67 year old lady with history of TBI and subarachnoid hemorrhage after a ladder fall, s/p cholecystectomy (02/05/2013), s/p hysterectomy, s/p rectal repair? who presents today for an evaluation of diarrhea. She states that the diarrhea started about 15 years ago. It has got worse the past couple years. She can have a couple days without BMs. Then she has what she calls as an attack: after eating a meal, she has cramping and bloating followed by 5 serial bowel movements that start out solid and then become watery. Once this starts, she cannot control her BMs and has had several accidents. She takes imodium, which appears to help. Fiber has helped in the past. Fried foods and soda make it worse. Her only medication is icosapent ethyl, which she stopped and did not notice any improvements. Has gained weight (40 lbs since the cholecystectomy). No blood in the stool. No nausea or vomiting. She had 2 vaginal deliveries. The last one, she had a tear that went through the rectum. Also has urinary incontinence. PAST SURGICAL HISTORY Procedure Laterality Date KNEE SURGERY HX Left 2019 TONSILLECTOMY & ADENOIDECTOMY <AGE 13 Current Outpatient Medications Medication Sig Dispense Refill VASCEPA 1 gram capsule Take 2 capsules by mouth twice daily. ammonium lactate (LAC-HYDRIN) 12 % lotion Apply 1 application to affected area twice daily. Apply to arms and legs twice daily No current facility-administered medications for this visit. ALLERGIES No Known Allergies Social History Tobacco Use Smoking status: Never Smokeless tobacco: Never Substance Use Topics Alcohol use: Yes Drug use: Never FAMILY HISTORY (grandparents, parents, brothers, sisters, aunts, or uncles) Liver Problems: No Ulcerative Colitis: No Crohn's Disease: No Colon Cancer: No Colon Polyps: No IBS: No Celiac disease: No Bleeding Disorders: No GI SPECIFIC REVIEW OF SYMPTOMS Difficulty swallowing / foods sticking in throat: no Heartburn: yes Hoarseness: no Chronic cough: no Regurgitation: no Chest pain: no Filling up quickly at meals:no Loss of appetite: no Nausea: no Vomiting: no Abdominal pain: yes Recent change in bowel movements: yes Bloody or black, bowel movements: no Constipation: no Diarrhea: yes Loss of control of bowel movements: yes Night sweats: no Fever: no Chills: no Thought or memory problems: no Fluid in abdomen (ascites): no Prominent leg swelling: no Vomiting blood: no Recent change in weight: No REVIEW OF SYSTEMS EyesNegative for vision changes, diplopia or epiphora. Ears, Mouth, nose, throat:No problems Cardiovascular: No Problems Respiratory: Negative for cough, wheezing and shortness of breath Gastrointestinal : No problems Genitourinary: negative Musuloskeletal: Denies significant problems Integumentary: no rashes, lesions, or jaundice Neurological: No history of neurologic problems Endocrine: Negative for cold or heat intolerance, polyuria, polydipsia and goiter. Psychiatric: Cooperative and agreeable Allergic/ Immunologic: Negative All others negative PHYSICAL EXAMINATION BP 125/78 Pulse 72 Temp (Src) 97.6 (Temporal) Ht 5' 2 (1.58m) Wt 162 lb (73.5kg) SpO2 96% BMI 29.62 kg/(m^2). General Appearance: Well appearing, alert, in no acute distress, well-hydrated, well nourished. Eyes: PERRLA, conjunctiva and sclera normal Oropharynx: Lips, tongue, and oral mucosa normal. There is no thrush or oral ulcers. Lungs:breath sounds clear to auscultation bilaterally, no crackles, rhonchi, or wheezes Heart: regular rate and rhythm, no murmurs or gallops. Abdomen: not distended, normal bowel sounds, soft and depressible, no guarding or rebound, no palpable mass, no organomegaly Rectal exam: Decreased resting anal sphincter tone. Decreased tone upon squeezing in the anal sphincter. Unable to expel my finger Extremities: no cyanosis or edema Skin: no jaundice, no spider angiomas, no palmar erythema Neuro:alert, oriented x 3, pleasant and in no acute distress RECENT LABS CBC: WBC (k/uL) Date Value 05/28/2021 9.99 05/27/2021 11.53 (H) Hematocrit (%) Date Value 05/28/2021 41.7 MCV (fL) Date Value 05/28/2021 89.7 Platelet Count (k/uL) Date Value 05/28/2021 210 Comprehensive Metabolic Panel: Glucose (mg/dL) Date Value 05/28/2021 99 BUN (mg/dL) Date Value 05/28/2021 13 Creatinine (mg/dL) Date Value 05/28/2021 0.68 Sodium (mmol/L) Date Value 05/28/2021 141 Potassium (mmol/L) Date Value 05/28/2021 4.1 Chloride (mmol/L) Date Value 05/28/2021 104 CO2 (mmol/L) Date Value 05/28/2021 27 Calcium, Total (mg/dL) Date Value 05/28/2021 9.4 Last EGD and colonoscopy performed by Dr. Cornelius on 06/26/2013. EGD revealed a small sliding hiatal hernia. Slightly irregular GE junction; biopsies were negative for Gann's esophagus. Antral gastritis; biopsies were negative for H. pylori. Several gastric polyps in the body of the stomach; sample biopsies identified as fundic gland polyps. Normal duodenum. Colonoscopy revealed 1 tiny tubular adenoma which was removed. Internal hemorrhoids. Otherwise normal exam to the terminal ileum. Recommended follow-up colonoscopy in 5 years. Path 2013 A. STOMACH, ANTRUM, BIOPSY: -ANTRAL MUCOSA WITH REACTIVE GASTROPATHY -AN IMMUNOHISTOCHEMICAL STAIN FOR H. PYLORI WITH WORKING CONTROLS IS NEGATIVE B. STOMACH, POLYP BIOPSY: -FRAGMENTS OF FUNDIC GLAND POLYP C. GASTROESOPHAGEAL JUNCTION, BIOPSY: -CHRONICALLY INFLAMED SQUAMOCOLUMNAR JUNCTIONAL MUCOSA WITH CHANGES CONSISTENT WITH REFLUX -INTESTINAL METAPLASIA OR DYSPLASIA ARE NOT IDENTIFIED Continued on page two. D. COLON, HEPATIC FLEXURE, POLYP BIOPSY: -TUBULAR ADENOMA -HIGH-GRADE DYSPLASIA OR MALIGNANCY ARE NOT IDENTIFIED Path 07/11/2018 CLINICAL INFORMATION: HISTORY COLON POLYPS SPECIMEN: COLON BIOPSY, RECTAL POLYP MICROSCOPIC DIAGNOSIS: RECTAL POLYP, BIOPSY: -TUBULAR ADENOMA. -NO HIGH-GRADE DYSPLASIA OR MALIGNANCY SEEN. Assessment IMPRESSION Ms. Mon is a 67 year old year old lady who presents with chronic diarrhea and fecal incontinence. It appears that she is suffering from overflow diarrhea. She is already taking fiber and it is not helping her 100%. Suspect that she has pelvic floor dyssynergia. She does have risk factors: traumatic vaginal delivery. Will proceed with evaluation of her pelvic floor PLAN - Anorectal manometry - Defecography - Increase fiber - metamucil - Stop imodium Plan is to follow up in three months. Discussed with Dr Laura. Lady Jodee Guzman MD May 11, 2022 1 pm I reviewed the history and physical obtained and documented by the resident and I personally participated in the plascencia components. The following comments revise or confirm relevant plascencia elements of resident's note: History:above Physical Exam: above I discussed the case and the plans with the resident with the following comments: I have seen and discussed the patient with the Fellow and agree with the eval and plan Impression: Ms. Mon is a 67 year old year old lady who presents with chronic diarrhea and fecal incontinence. It appears that she is suffering from overflow diarrhea. She is already taking fiber and it is not helping her 100%. Suspect that she has pelvic floor dyssynergia. She does have risk factors: traumatic vaginal delivery. Will proceed with evaluation of her pelvic floor Plan: - Anorectal manometry - Defecography - Increase fiber - metamucil - Stop imodium Artie Laura MD documented in this encounter [facility] 08-31-2021 Note HNO ID: [id number] Author: Qasim Bennett MD Service: ? Author Type: Physician Type: Progress Notes Filed: 09/01/2021 12:16 PM Note Text: IMPRESSION: Pt is 66yo F arriving with recent TBI and basillar skull fracture after fall from ladder. Has been having dizziness, headaches, some confusion, and hearing changes, however she has been getting vestibular therapy and all symptoms are improving. Today she feels that she is progressing well and has no new concerns; felt she should keep the appointment as it was scheduled when she was still having significant symptoms. ACTIVE PROBLEM LIST Basilar Skull Fracture (Hcc) Closed Fracture of Multiple Ribs of Both Sides Subarachnoid Hemorrhage Following Injury, With Loss of Consciousness (Hcc) PLAN: Continue with your therapies. Could consider further therapies if she plateau's, in her progress, otherwise no change in plan. Follow up as needed at this point. No orders found for this visit on 08/31/21. Subjective: Patient presents with: New Patient: TBI Pt is 66yo F arriving with recent TBI and basillar skull fracture after fall from ladder. Has been having dizziness, headaches, some confusion, and hearing changes, however she has been getting vestibular therapy and all symptoms are improving. Today she feels that she is progressing well and has no new concerns; felt she should keep the appointment as it was scheduled when she was still having significant symptoms. No recent headaches that are different from baseline, hearing improving with less of the clogged/muffled feeling, walking/dizziness improving with therapy. No major concerns today. As reviewed - [facility] [place] 06/13 office visit Patient is a 66 year old female w/ HLD, cholecystectomy, hysterectomy s/p mechanical fall from ladder w/ non displaced basilar skull fracture extending toward the torcula, no pneumocephalus or IVH/lCH who was managed conservatively and discharged, now presenting for her 2 week followup. Patient reports that at times she is experiencing posterior neck stiffness. She describes intermittent confusion and catches herself asking questions more than once. She denies any visual changes at this time. States that she is still taking Tylenol as directed, but denies any headaches. She reports that the hearing in her left ear at times feels diminished and muffled and at times her eardrum is sore to the touch. CT brain from 06/13/21 demonstrated stable non displaced fracture, no new ICH/IVH or hydrocephalus. 66 year old male w/?HLD, cholecystectomy, hysterectomy?s/p mechanical fall from ladder, w/ non displaced basilar skull fracture extending toward the torcula, no pneumocephalus or IVH/lCH, w/ stable 2 week CTH, w/ improving symptoms of confusion ? - no emergent neurosurgical intervention required - patient is ok to drive, ok to take ibuprofen for symptomatic headache relief from a purely neurosurgical perspective - CTH is stable, no further imaging required from a neurosurgical perspective unless patient's exam changes - discussed post concussive symptoms with patient, discussed that if she continues to have confusion and post concussive symptoms, will refer her to TBI clinic for evaluation and management - no formal followup needed, patient can follow up prn or if symptoms worsen - all questions answered Recent labs/Imaging related to complaint: CT Head 06/13/2021 IMPRESSION: 1. ?Interval clearance of subarachnoid hemorrhage. ?There is currently no intracranial hemorrhage identified. ?There is no mass effect or hydrocephalus. 2. ?Interval clearance of abnormal density within the sphenoid sinuses. CT Head/neck/facial bones 05/25/21 Opacification of left sphenoid sinus and airfluid level of left maxillary sinus. Questionable nondisplaced left basilar skull fracture. Nondisplaced fracture of right occipital bone. Multilevel chronic spondylosis of cervical spine Medications Reviewed VASCEPA 1 gram capsule Take 2 capsules by mouth twice daily. ammonium lactate (LAC-HYDRIN) 12 % lotion Apply 1 application to affected area twice daily. Apply to arms and legs twice daily [place]AR[place] reviewed to confirm/clarify any controlled medications Allergies Reviewed PAST MEDICAL HISTORY: ACTIVE PROBLEM LIST Basilar Skull Fracture (Hcc) Closed Fracture of Multiple Ribs of Both Sides Subarachnoid Hemorrhage Following Injury, With Loss of Consciousness (Hcc) PAST SURGICAL HISTORY Procedure Laterality Date - KNEE SURGERY HX Left 2019 - TONSILLECTOMY AND ADENOIDECTOMY Social History Tobacco Use - Smoking status: Never Smoker - Smokeless tobacco: Never Used Substance Use Topics - Alcohol use: Yes - Drug use: Never family history includes Breast Cancer in her mother; Cancer in her father. Review of systems as noted, reviewed, and documented on intake section. Physical Exam: 08/31/21 1408 BP: 128/85 Pulse: 88 SpO2: 95% Weight: 75.4 (more content not included)... [facility] 06-13-2021 Note HNO ID: [id number] Author: Damian Hagen MD Service: ? Author Type: Physician Type: Progress Notes Filed: 06/13/2021 10:46 AM Note Text: NEUROSURGERY FOLLOW UP OFFICE NOTE Damian Hagen MD PhD Date of visit: June 13, 2021 Patient Name: Ms.Judith Julia Mon Date of : 1955 Current Age: [age] year old Sex: female MRN/E# [id number] Last Office Visit: Visit date not found Chief Complaint: Patient presents with: Established Patient: hospital discharge SUBJECTIVE: Patient is a 66 year old female w/ HLD, cholecystectomy, hysterectomy s/p mechanical fall from ladder w/ non displaced basilar skull fracture extending toward the torcula, no pneumocephalus or IVH/lCH who was managed conservatively and discharged, now presenting for her 2 week followup. Patient reports that at times she is experiencing posterior neck stiffness. She describes intermittent confusion and catches herself asking questions more than once. She denies any visual changes at this time. States that she is still taking Tylenol as directed, but denies any headaches. She reports that the hearing in her left ear at times feels diminished and muffled and at times her eardrum is sore to the touch. CT brain from 06/13/21 demonstrated stable non displaced fracture, no new ICH/IVH or hydrocephalus. PREVIOUS CONSERVATIVE TREATMENTS: Tylenol PREVIOUS SURGERY: None PAIN EVALUATION No data found in the last 1 encounters. History reviewed. No pertinent past medical history. PAST SURGICAL HISTORY Procedure Laterality Date - KNEE SURGERY HX Left 2018 - REMOVE TONSILS/ADENOIDS,<12 Y/O FAMILY HISTORY Problem Relation Age of Onset - Breast Cancer Mother - Cancer Father ALLERGIES No Known Allergies Current Outpatient Medications Medication Sig Dispense Refill - acetaminophen (TYLENOL) 500 mg tablet Take 2 tablets by mouth every 6 hours as needed for pain. - VASCEPA 1 gram capsule Take 2 capsules by mouth twice daily. - ammonium lactate (LAC-HYDRIN) 12 % lotion Apply 1 application to affected area twice daily. Apply to arms and legs twice daily No current facility-administered medications for this visit. REVIEW OF SYSTEMS Review of Systems Constitutional: Negative for chills, fatigue and fever. HENT: Negative for congestion and sore throat. Eyes: Negative. Negative for discharge and itching. Respiratory: Negative for cough and shortness of breath. Cardiovascular: Negative for chest pain and palpitations. Gastrointestinal: Negative for constipation, diarrhea, nausea and vomiting. Endocrine: Negative for cold intolerance and heat intolerance. Genitourinary: Negative for difficulty urinating and hematuria. Musculoskeletal: Positive for neck stiffness. Negative for back pain and neck pain. Skin: Positive for rash. Negative for wound. Allergic/Immunologic: Negative for environmental allergies and food allergies. Cats Neurological: Negative for dizziness, weakness, light-headedness and headaches. Hematological: Does not bruise/bleed easily. Psychiatric/Behavioral: Negative for agitation. The patient is not nervous/anxious. OBJECTIVE: BP 134/79 Pulse 82 Temp 97.2 Ht 5' 2 (1.58m) Wt 162 lb (73.5kg) SpO2 98% BMI 29.62 kg/(m2). Aaox3, nad, follows commands Naming, repetition intact PERRL, EOMI Sensation intact in V1/V2/V3 dermatomes FS, palate rise symmetric, shoulder shrug 5/5 bilaterally, TM No drift Strength 5/5 BUE/BLE SILT Data Review IMAGING STUDIES: CT brain from 06/13/21 demonstrated stable non displaced fracture, no new ICH/IVH or hydrocephalus. Personal review of medical records: I reviewed with the patient, history, physical exam, the images and the chart. 66 year old male w/ HLD, cholecystectomy, hysterectomy s/p mechanical fall from ladder, w/ non displaced basilar skull fracture extending toward the torcula, no pneumocephalus or IVH/lCH, w/ stable 2 week CTH, w/ improving symptoms of confusion - no emergent neurosurgical intervention required - patient is ok to drive, ok to take ibuprofen for symptomatic headache relief from a purely neurosurgical perspective - CTH is stable, no further imaging required from a neurosurgical perspective unless patient's exam changes - discussed post concussive symptoms with patient, discussed that if she continues to have confusion and post concussive symptoms, will refer her to TBI clinic for evaluation and management - no formal followup needed, patient can follow up prn or if symptoms worsen - all questions answered Damian Hagen MD, PhD Neurosurgery Pager: [phone] June 13, 2021 10:46 AM [facility] 05-30-2021 Note HNO ID: [id number] Author: Lalo Tabor PA-C Service: General Surgery Author Type: Physician Rheumatology Nurse Type: Progress Notes Filed: 05/30/2021 9:38 AM Note Text: Trauma Surgery Progress Note SERVICE DATE: 05/30/2021 Trauma Service Pager: For questions or concerns Mon-Fri 6a-5p please page [phone]. After 5pm and on Weekends and Holidays, please page [phone] if in ICU or [phone] if on RNF. SUBJECTIVE: Patient was awake and alert this morning. present at the bedside. Patient states she was more mobile yesterday and was able to get out of bed and go to the bathroom with minimal assistance. She continues to have bilateral rib pain. She is reaching 1000 on her IS. She denied any SOB, ABD pain, fevers, chills, or cough. She is now declining a SNF at discharge and wishes to be discharged home with home health care today if possible. OBJECTIVE: Vitals: Temp (24hrs), Av.7 ?C (98 ?F), Min:36.5 ?C (97.7 ?F), Max:37.1 ?C (98.8 ?F) BP 146/80 Pulse 61 Temp 36.5 ?C (97.7 ?F) (Temporal) Resp 18 Ht 157.5 cm (5' 2 ) Wt 73.6 kg (162 lb 4.8 oz) SpO2 94% BMI 29.69 kg/m? O2 Therapy: Room Air IANDO: Date 05/29/21 07 - 05/30/21 0659 05/30/21699 - 05/31/21 0659 Shift 7088-1881 9862-9176 9905-5953 24 Hour Total 0391-8494 2552-1237 0972-4344 24 Hour Total INTAKE Shift Total OUTPUT Urine 450 450 Void (ml) 450 450 Urine Not Saved. 1 x 1 x # of BMs Number of BMs 1 x 1 x 2 x Shift Total 450 450 Weight (kg) 73.6 73.6 73.6 73.6 73.6 73.6 73.6 73.6 MEDICATIONS Current Facility-Administered Medications Medication Dose Route Frequency - enoxaparin 30 mg injection (LOVENOX) 30 mg SUBCUTANEOUS q 12 HR - ibuprofen 400 mg tab(s) (MOTRIN) 400 mg ORAL QID - metoclopramide HCl 10 mg injection (REGLAN) 10 mg INTRAVENOUS q 6 H PRN - oxyCODONE IR 2.5-5 mg tab(s) (ROXICODONE) 2.5-5 mg ORAL q 6 H PRN - pregabalin 50 mg cap(s) (LYRICA) 50 mg ORAL TID - NaCl 0.9% iv flush bag 20 mL INTRAVENOUS PRN - sodium chloride 0.9 % (flush) 3-5 mL (BD POSIFLUSH) 3-5 mL INTRAVENOUS q 12 H - ipratropium-albuterol 3 mL nebulizer solution (DUONEB) 3 mL INHALATION q 6 H PRN - ondansetron 4 mg tab(s) (ZOFRAN) 4 mg ORAL q 6 H PRN Or - ondansetron (PF) 4 mg injection (ZOFRAN) 4 mg INTRAVENOUS q 6 H PRN - acetaminophen 1,000 mg tab(s) (TYLENOL) 1,000 mg ORAL QID - lidocaine 4 % 1 Patch (SALONPAS) 1 Patch TRANSDERMAL DAILY AT 9 PM And - lidocaine patch - REMOVE OTHER DAILY And - lidocaine - VERIFY PATCH OTHER q 8 H - senna-docusate 8.6-50 mg 1 tablet (SENNA-S) 1 tablet ORAL BID Labs: Recent Labs 05/28/21 0441 NA 141 K 4.1 CHLOR 104 CO2 27 BUN 13 CREAT 0.68 GLUC 99 ANION 10 CA 9.4 WBC 9.99 HB 13.3 HCT 41.7 PLT 210 PHYSICAL EXAM: Genl: Appears age appropriate. No acute distress. Resting comfortably. Head/Face: Normocephalic. Eyes: EOMI. Sclera not icteric, not injected Resp: Lung sounds are clear bilat. No wheezes. No rales. Breathing is non-labored on RA @94%. Bilateral chest wall tenderness without crepitus. CVS: RRR as above; 2+ pulses at RA, DP, PT bilat. GI: Abdomen is soft, non-tender, not distended. No peritonitis. MSK: Extremities without clubbing, cyanosis, edema. Normal ROM x 4. Skin: Warm and dry. Not jaundiced. Neuro: AANDOx3. Strength and sensation normal. TODD. GCS15. Psych: Normal mood. Normal affect. Appropriate insight into current situation. ASSESSMENT AND PLAN: Active Hospital Problems Diagnosis Date Noted - Fall 05/26/2021 - Closed fracture of multiple ribs of both sides 05/26/2021 - Subarachnoid hemorrhage following injury, with loss of consciousness (HCC) 05/26/2021 - Basilar skull fracture (HCC) 05/25/2021 66 year old female s/p fall from ladder on 05/25/2021 (Level III) Imaging performed: 1. (05/25/2021) - CT HNFCAP, CTA HN, CXR 2. (05/26/2021) - CTH x 2 3. (05/27/2021) - CTH Traumatic Injuries: 1. SAH 2. Basilar skull fracture 3. R occipital bone fracture 4. Multiple bilateral rib fractures Operations/Procedures: 1. None Care Plan: 1. SAH, occipital bone and basilar skull fractures 1. Neurosurgery consulted 2. Conservative non-op management 3. No Keppra 4. Okay to start DVT PPX 5. Neuro checks 6. Follow-up with Dr. Hagen in 2 weeks 2. Multiple bilateral rib fractures 1. Pain control 2. Pulm hygiene 3. Encourage mobility 3. Will ask PT/OT to re-eval today as patient would like to go home rather than to a SNF. 4. Current diet order: DIET REGULAR 5. Pain regimen: Scheduled Tylenol, lido patch, and lyrica; PRN Roxicodone 6. Bowel regimen: Senna-S BID 7. Labs: As above PPX: 1. DVT: SCDs; Mobilize; LVX 2. Ulcer: NA 3. Vit D level if > 65 yo: NA Consulted Services: 1. NSX 2. PT/OT 3. SICU Dispo Plannin. PT/OT recs SNF. Case management following. Incidentals: 1. N/A Follow Up Needs: 1. Dr. Hagen - 2 weeks 2. PCP Staff Trauma Surgeon: Dr. Shane (more content not included)... [facility] 05-29-2021 Note HNO ID: [id number] Author: Meghan Orr MD Service: General Surgery Author Type: Physician Type: Progress Notes Filed: 05/29/2021 11:15 AM Note Text: Trauma Surgery Progress Note SERVICE DATE: 05/29/2021 Trauma Service Pager: For questions or concerns Mon-Fri 6a-5p please page [phone]. After 5pm and on Weekends and Holidays, please page [phone] if in ICU or [phone] if on RNF. SUBJECTIVE: NAEON. Patient notes improved overall pain control and some increase in her mobility. Tolerating diet. No new focal concerns. remains at bedside. Patient and her spouse wish to pursue SNF at discharge. OBJECTIVE: Vitals: Temp (24hrs), Av ?C (98.6 ?F), Min:36.6 ?C (97.9 ?F), Max:37.2 ?C (99 ?F) BP 140/86 Pulse 79 Temp 36.7 ?C (98.1 ?F) (Oral) Resp 16 Ht 157.5 cm (5' 2 ) Wt 73.6 kg (162 lb 4.8 oz) SpO2 95% BMI 29.69 kg/m? O2 Therapy: Nasal Cannula IANDO: Date 05/28/21699 - 05/29/2165805/29/21699 - 05/30/21 0659 Shift 0358-2172 9170-8386 1266-8607 24 Hour Total 2107-5337 8511-3075 9552-9910 24 Hour Total INTAKE PO 240 240 PO 240 240 Shift Total 240 240 OUTPUT Urine 033 619 3906 Urine Incontinence/Not Saved 2 x 1 x 3 x Output ( External Collection Device Assessment) 812 207 9964 # of BMs Number of BMs 1 x 1 x Shift Total 018 470 4698 Weight (kg) 73.6 73.6 73.6 73.6 73.6 73.6 73.6 73.6 MEDICATIONS Current Facility-Administered Medications Medication Dose Route Frequency - ibuprofen 400 mg tab(s) (MOTRIN) 400 mg ORAL QID - metoclopramide HCl 10 mg injection (REGLAN) 10 mg INTRAVENOUS q 6 H PRN - oxyCODONE IR 2.5-5 mg tab(s) (ROXICODONE) 2.5-5 mg ORAL q 6 H PRN - pregabalin 50 mg cap(s) (LYRICA) 50 mg ORAL TID - NaCl 0.9% iv flush bag 20 mL INTRAVENOUS PRN - sodium chloride 0.9 % (flush) 3-5 mL (BD POSIFLUSH) 3-5 mL INTRAVENOUS q 12 H - ipratropium-albuterol 3 mL nebulizer solution (DUONEB) 3 mL INHALATION q 6 H PRN - ondansetron 4 mg tab(s) (ZOFRAN) 4 mg ORAL q 6 H PRN Or - ondansetron (PF) 4 mg injection (ZOFRAN) 4 mg INTRAVENOUS q 6 H PRN - acetaminophen 1,000 mg tab(s) (TYLENOL) 1,000 mg ORAL QID - lidocaine 4 % 1 Patch (SALONPAS) 1 Patch TRANSDERMAL DAILY AT 9 PM And - lidocaine patch - REMOVE OTHER DAILY And - lidocaine - VERIFY PATCH OTHER q 8 H - senna-docusate 8.6-50 mg 1 tablet (SENNA-S) 1 tablet ORAL BID Labs: Recent Labs 05/28/21 0441 05/27/21 0412 NA 141 142 K 4.1 4.0 CHLOR 104 110* CO2 27 25 BUN 13 12 CREAT 0.68 0.57* GLUC 99 120* ANION 10 7* CA 9.4 8.4* MG -- 2.1 WBC 9.99 11.53* HB 13.3 11.9 HCT 41.7 37.2 PLT 210 214 PHYSICAL EXAM: Genl: Appears age appropriate. No acute distress. Resting comfortably. Head/Face: Normocephalic. Eyes: EOMI. Sclera not icteric, not injected Resp: Lung sounds are clear bilat. No wheezes. No rales. Breathing is non-labored on 2L @95%. Bilateral chest wall tenderness without crepitus. CVS: RRR as above; 2+ pulses at RA, DP, PT bilat. GI: Abdomen is soft, non-tender, not distended. Bowel sounds normoactive. No peritonitis. MSK: Extremities without clubbing, cyanosis, edema. Normal ROM x 4. Skin: Warm and dry. Not jaundiced. Neuro: AANDOx3. Strength and sensation normal. TODD. GCS15. Psych: Normal mood. Normal affect. Appropriate insight into current situation. ASSESSMENT AND PLAN: Active Hospital Problems Diagnosis Date Noted - Fall 05/26/2021 - Closed fracture of multiple ribs of both sides 05/26/2021 - Subarachnoid hemorrhage following injury, with loss of consciousness (HCC) 05/26/2021 - Basilar skull fracture (HCC) 05/25/2021 66 year old female s/p fall from ladder on 05/25/2021 (Level III) Imaging performed: 1. (05/25/2021) - CT HNFCAP, CTA HN, CXR 2. (05/26/2021) - CTH x 2 3. (05/27/2021) - CTH Traumatic Injuries: 1. SAH 2. Basilar skull fracture 3. R occipital bone fracture 4. Multiple bilateral rib fractures Operations/Procedures: 1. None Care Plan: 1. SAH, occipital bone and basilar skull fractures 1. NSX consulted 2. Non-op management 3. Neuro checks 4. Follow-up with Dr. Hagen in 2 weeks 2. Multiple bilateral rib fractures 1. Pain control 2. Pulm hygiene 3. Encourage mobility 4. Wean O2 as tolerated 3. PT/OT 4. Current diet order: DIET REGULAR 5. Pain regimen: Tylenol, motrin, lido patch, lyrica, oxycodone 6. Bowel regimen: Senna-s 7. Labs: As above PPX: 1. DVT: Hold chemo ppx; SCDs; Mobilize 2. Ulcer: NA 3. Vit D level if > 65 yo: NA Consulted Services: 1. NSX 2. PT/OT 3. SICU Dispo Plannin. PT/OT recs SNF. Case management following. Incidentals: 1. N/A Follow Up Needs: 1. Dr. Hagen - 2 weeks 2. PCP Staff Trauma Surgeon: Dr. Orr SIGNATURE: Van Warren PA-C PATIENT NAME: Lorie Mon DATE: May 29, 2021 TIME: 8:33 AM Pager: see below Trauma Service Pager: For questions or concerns Sun-Sun 6a-5p please page [phone]. After 5 (more content not included)... [facility] 05-28-2021 Note HNO ID: [id number] Author: Meghan Orr MD Service: General Surgery Author Type: Physician Type: Progress Notes Filed: 05/29/2021 12:18 PM Note Text: Trauma Surgery Progress Note SERVICE DATE: 05/28/2021 Trauma Service Pager: For questions or concerns Sun-Sun- please page [phone]. After 5pm and on Weekends and Holidays, please page [phone] if in ICU or [phone] if on RNF. SUBJECTIVE: NAEON. Pt continues to be unable to Move or roll over in bed due to rib fracture pain. Therefore, she did not have good effort working with PT yesterday. Only has had clear liquids/jellow. She is fearful of nausea/vomiting. Also reports mild headache. Denies SOB. Pulls slightly less than 1000 on Is. Denies abdominal pain. OBJECTIVE: Vitals: Temp (24hrs), Av.8 ?C (98.3 ?F), Min:36.6 ?C (97.9 ?F), Max:37.1 ?C (98.8 ?F) BP 132/71 Pulse 63 Temp 36.6 ?C (97.9 ?F) (Oral) Resp 18 Ht 157.5 cm (5' 2 ) Wt 73.6 kg (162 lb 4.8 oz) SpO2 90% BMI 29.69 kg/m? O2 Therapy: Nasal Cannula IANDO: Date 05/27/21 07 - 05/28/21 0659 05/28/21 0700 - 05/29/21 0659 Shift 8813-7031 1844-0907 2365-3730 24 Hour Total 5914-1416 7185-8084 7260-1390 24 Hour Total INTAKE PO 120 120 PO 120 120 Shift Total 120 120 OUTPUT Urine 293 896 7542 Void (ml) 600 600 Output ( External Collection Device Assessment) 400 400 Shift Total 979 115 2242 Weight (kg) 72.6 72.6 73.6 73.6 73.6 73.6 73.6 73.6 MEDICATIONS Current Facility-Administered Medications Medication Dose Route Frequency - pantoprazole 40 mg injection (PROTONIX) 40 mg INTRAVENOUS DAILY (6 AM) - metoclopramide HCl 10 mg injection (REGLAN) 10 mg INTRAVENOUS q 6 H PRN - oxyCODONE IR 2.5-5 mg tab(s) (ROXICODONE) 2.5-5 mg ORAL q 6 H PRN - pregabalin 50 mg cap(s) (LYRICA) 50 mg ORAL TID - NaCl 0.9% iv flush bag 20 mL INTRAVENOUS PRN - sodium chloride 0.9 % (flush) 3-5 mL (BD POSIFLUSH) 3-5 mL INTRAVENOUS q 12 H - ipratropium-albuterol 3 mL nebulizer solution (DUONEB) 3 mL INHALATION q 6 H PRN - ondansetron 4 mg tab(s) (ZOFRAN) 4 mg ORAL q 6 H PRN Or - ondansetron (PF) 4 mg injection (ZOFRAN) 4 mg INTRAVENOUS q 6 H PRN - acetaminophen 1,000 mg tab(s) (TYLENOL) 1,000 mg ORAL QID - lidocaine 4 % 1 Patch (SALONPAS) 1 Patch TRANSDERMAL DAILY AT 9 PM And - lidocaine patch - REMOVE OTHER DAILY And - lidocaine - VERIFY PATCH OTHER q 8 H - senna-docusate 8.6-50 mg 1 tablet (SENNA-S) 1 tablet ORAL BID Labs: Recent Labs 05/28/21 0441 05/27/21 0412 05/26/21 0907 05/26/21 0405 05/25/21 2043 05/25/21 1710 NA 141 142 < > -- < > -- K 4.1 4.0 < > -- < > -- CHLOR 104 110* < > -- < > -- CO2 27 25 < > -- < > -- BUN 13 12 < > -- < > -- CREAT 0.68 0.57* < > -- < > -- GLUC 99 120* < > -- < > -- ANION 10 7* < > -- < > -- CA 9.4 8.4* < > -- < > -- MG -- 2.1 -- 1.8 < > -- WBC 9.99 11.53* < > -- < > -- HB 13.3 11.9 < > -- < > -- HCT 41.7 37.2 < > -- < > -- PLT 210 214 < > -- < > -- INR -- -- -- -- -- 1.5* < > = values in this interval not displayed. PHYSICAL EXAM: Genl: Appears age appropriate. No acute distress. Resting comfortably. Head/Face: Normocephalic Eyes: EOMI Resp: Unlabored resp on 2L NC CVS: RRR as above GI: Abdomen is soft, non-tender, not distended MSK: TODD Skin: Warm and dry. Not jaundiced. Neuro: AANDOx3. Strength and sensation normal. TODD. GCS15. ASSESSMENT AND PLAN: Active Hospital Problems Diagnosis Date Noted - Fall 05/26/2021 - Closed fracture of multiple ribs of both sides 05/26/2021 - Subarachnoid hemorrhage following injury, with loss of consciousness (HCC) 05/26/2021 - Basilar skull fracture (HCC) 05/25/2021 66 year old female?h/o HLD, cholecystectomy, hysterectomy presented to the ED via EMS as a level 3 trauma activation after a fall from a ladder from an unknown height prior to arrival?on 05/25. ? Imaging performed: 1. CT H/F/N/C/A/P 05/25 2. CTA HN 05/25 3. CXR 05/[address] brain 05/26 x2, 05/27? Traumatic Injuries: 1. R occipital bone extending to the base of the occipital bone 2. possible L basilar skull fx 3. nondisplaced bilateral posterior medial rib fractures involving at least 3 ribs 4. sphenoid fx. 5. intracranial subarachnoid hemorrhage without increased mass effect, midline shift, or development of hydrocephalus ? Operations/Procedures: 1.???N/a ? Care Plan: 1. Continue care on RNF 2. SAH, occipital bone fx 1. Neurosurgery signed off 2. q4h neurochecks 3. Rib fx 1. Encourage IS use, deep breathing 2. PRN duonebs 3. Multimodal pain control: sched tylenol, lidocaine, lyrica patches, PRN oxy 4. Wean O2 as able 4. Diet: regular 5. Bowel regimen: senna-s PPX: 1. DVT:??Holding lovenox, okay for SCDs 2. Ulcer:??N/a 3. Vit D level if > 65 yo:?pending ? Consulted Services: 1. Trauma 2. SICU 3. Neurosurgery 4. PT/OT 5. speech ? Dispo Plannin. PT/OT recs SNF ? Incidentals: 1. Degenerative (more content not included)... [facility] 05-27-2021 Note HNO ID: [id number] Author: Mercedez Cuevas PA-C Service: Neurosurgery Author Type: Physician Rheumatology Nurse Type: Progress Notes Filed: 05/27/2021 9:50 AM Note Text: Neurosurgery Progress Note SERVICE DATE: 05/27/2021 SUBJECTIVE: Pt with very annoyed or frustrated demeanor this am. Lying flat in bed but states she's comfortable. Answers are short and quick. Denies h/a currently, states slept ok last night, wants to go home. C/o rib discomfort with a lot of movement. OBJECTIVE: Vitals: Temp (24hrs), Av.8 ?C (98.2 ?F), Min:36.8 ?C (98.2 ?F), Max:36.8 ?C (98.2 ?F) BP 140/86 Pulse 86 Temp 36.8 ?C (98.2 ?F) (Axillary) Resp 23 Ht 157.5 cm (5' 2 ) Wt 72.6 kg (160 lb) SpO2 95% BMI 29.26 kg/m? O2 Therapy: Nasal Cannula MEDICATIONS Current Facility-Administered Medications Medication Dose Route Frequency - calcium gluconate 4 g in NaCl 0.9% 250 mL 4 g INTRAVENOUS ONCE - potassium-sodium phosphates 1 Packet (NEUTRA-PHOS,PHOS-NAK) 1 Packet ORAL PC and HS - phosphorus 250 mg tab(s) (K PHOS NEUTRAL) 250 mg ORAL PC and HS - oxyCODONE IR 2.5-5 mg tab(s) (ROXICODONE) 2.5-5 mg ORAL q 6 H PRN - pregabalin 50 mg cap(s) (LYRICA) 50 mg ORAL TID - NaCl 0.9% iv flush bag 20 mL INTRAVENOUS PRN - potassium chloride ER 20-40 mEq tab(s) (K-DUR, KLOR-CON) 20-40 mEq ORAL/FEEDING TUBE PRN Or - potassium chloride iv piggyback 20 mEq/100 mL 20 mEq INTRAVENOUS PRN - magnesium sulfate in sterile water 2 g in sterile water 50 ml 2 g INTRAVENOUS PRN - phosphorus 500 mg tab(s) (K PHOS NEUTRAL) 500 mg ORAL/FEEDING TUBE PRN(NO DISPENSE) - calcium gluconate 4 g in NaCl 0.9% 250 mL 4 g INTRAVENOUS PRN - sodium chloride 0.9 % (flush) 3-5 mL (BD POSIFLUSH) 3-5 mL INTRAVENOUS q 12 H - ipratropium-albuterol 3 mL nebulizer solution (DUONEB) 3 mL INHALATION q 6 H PRN - ondansetron 4 mg tab(s) (ZOFRAN) 4 mg ORAL q 6 H PRN Or - ondansetron (PF) 4 mg injection (ZOFRAN) 4 mg INTRAVENOUS q 6 H PRN - acetaminophen 1,000 mg tab(s) (TYLENOL) 1,000 mg ORAL QID - lidocaine 4 % 1 Patch (SALONPAS) 1 Patch TRANSDERMAL DAILY AT 9 PM And - lidocaine patch - REMOVE OTHER DAILY And - lidocaine - VERIFY PATCH OTHER q 8 H - senna-docusate 8.6-50 mg 1 tablet (SENNA-S) 1 tablet ORAL BID Labs: Recent Labs 05/27/21 0412 05/26/21 0907 05/26/21 0405 05/25/21 2043 05/25/21 1710 NA 142 140 -- < > -- K 4.0 3.7 -- < > -- CHLOR 110* 107* -- < > -- CO2 25 21* -- < > -- BUN 12 13 -- < > -- CREAT 0.57* 0.66 -- < > -- GLUC 120* 145* -- < > -- ANION 7* 12 -- < > -- CA 8.4* 9.0 -- < > -- MG 2.1 -- 1.8 < > -- WBC 11.53* 15.93* -- < > -- HB 11.9 12.7 -- < > -- HCT 37.2 38.9 -- < > -- PLT 214 242 -- < > -- INR -- -- -- -- 1.5* < > = values in this interval not displayed. Exam: GENERAL: Awake and alert; NAD; cooperative NEURO: Orientedx3; speech clear and fluent; msp grossly intact HEENT: Normocephalic; atraumatic; perrl/eomi; no facial droop LUNGS: Unlabored breathing CARDIAC: Rate and rhythm as above ABDOMEN: Soft, non-tender, non-distended EXTREMITIES: No deformities SKIN: Skin color, texture, turgor normal, no rashes or lesions ASSESSMENT AND PLAN: Active Hospital Problems Diagnosis Date Noted - Fall 05/26/2021 - Closed fracture of multiple ribs of both sides 05/26/2021 - Subarachnoid hemorrhage following injury, with loss of consciousness (HCC) 05/26/2021 - Basilar skull fracture (HCC) 05/25/2021 66 year old female fall from ladder - occipital/basilar skull fx, scattered SAH; rib fxs - neuro stable - no focal deficits - pain control - CTH repeated and reviewed - stable - ok for d/c from NS standpoint - f/up with Dr. Hagen in 2 wks with repeated scan - requested - instructions regarding CHI reviewed with pt - she repeated instructions and verbalized understanding - NS will SO call with questions or concerns? ? Parts of this note may have been copied from one of my previous notes and remain pertinent. Current changes have been made and documented today. Other parts or data were deleted if not relevant for today. The documentation has been reviewed and edited as necessary to support the clinical decision making for today's visit. SIGNATURE: Mercedez Cuevas PA-C PATIENT NAME: Lorie Mon DATE: May 27, 2021 TIME: 9:20 AM Pager: [phone] [facility] 05-27-2021 Note HNO ID: [id number] Author: Meghan Orr MD Service: General Surgery Author Type: Physician Type: Progress Notes Filed: 05/27/2021 3:25 PM Note Text: Trauma Surgery Progress Note SERVICE DATE: 05/27/2021 Trauma Service Pager: For questions or concerns Mon-Fri 6a-5p please page [phone]. After 5pm and on Weekends and Holidays, please page [phone] if in ICU or [phone] if on RNF. SUBJECTIVE: Reportedly refused medication overnight because of diet. Now complains of increasing pain. Currently HDS on RA. c-collar no longer in place. OBJECTIVE: Vitals: No data recorded. BP 140/76 Pulse 67 Temp 36.8 ?C (98.2 ?F) Resp 15 Ht 157.5 cm (5' 2 ) Wt 72.6 kg (160 lb) SpO2 95% BMI 29.26 kg/m? O2 Therapy: Nasal Cannula IANDO: MEDICATIONS Current Facility-Administered Medications Medication Dose Route Frequency - calcium gluconate 4 g in NaCl 0.9% 250 mL 4 g INTRAVENOUS ONCE - potassium-sodium phosphates 1 Packet (NEUTRA-PHOS,PHOS-NAK) 1 Packet ORAL PC and HS - phosphorus 250 mg tab(s) (K PHOS NEUTRAL) 250 mg ORAL PC and HS - NaCl 0.9% iv infusion 75 mL/hr INTRAVENOUS CONTINUOUS - oxyCODONE IR 2.5-5 mg tab(s) (ROXICODONE) 2.5-5 mg ORAL q 6 H PRN - pregabalin 50 mg cap(s) (LYRICA) 50 mg ORAL TID - NaCl 0.9% iv flush bag 20 mL INTRAVENOUS PRN - potassium chloride ER 20-40 mEq tab(s) (K-DUR, KLOR-CON) 20-40 mEq ORAL/FEEDING TUBE PRN Or - potassium chloride iv piggyback 20 mEq/100 mL 20 mEq INTRAVENOUS PRN - magnesium sulfate in sterile water 2 g in sterile water 50 ml 2 g INTRAVENOUS PRN - phosphorus 500 mg tab(s) (K PHOS NEUTRAL) 500 mg ORAL/FEEDING TUBE PRN(NO DISPENSE) - calcium gluconate 4 g in NaCl 0.9% 250 mL 4 g INTRAVENOUS PRN - sodium chloride 0.9 % (flush) 3-5 mL (BD POSIFLUSH) 3-5 mL INTRAVENOUS q 12 H - ipratropium-albuterol 3 mL nebulizer solution (DUONEB) 3 mL INHALATION q 6 H PRN - ondansetron 4 mg tab(s) (ZOFRAN) 4 mg ORAL q 6 H PRN Or - ondansetron (PF) 4 mg injection (ZOFRAN) 4 mg INTRAVENOUS q 6 H PRN - acetaminophen 1,000 mg tab(s) (TYLENOL) 1,000 mg ORAL QID - lidocaine 4 % 1 Patch (SALONPAS) 1 Patch TRANSDERMAL DAILY AT 9 PM And - lidocaine patch - REMOVE OTHER DAILY And - lidocaine - VERIFY PATCH OTHER q 8 H - senna-docusate 8.6-50 mg 1 tablet (SENNA-S) 1 tablet ORAL BID Labs: Recent Labs 05/27/21 0412 05/26/21 0907 05/26/21 0405 05/25/21 2043 05/25/21 1710 NA 142 140 -- < > -- K 4.0 3.7 -- < > -- CHLOR 110* 107* -- < > -- CO2 25 21* -- < > -- BUN 12 13 -- < > -- CREAT 0.57* 0.66 -- < > -- GLUC 120* 145* -- < > -- ANION 7* 12 -- < > -- CA 8.4* 9.0 -- < > -- MG 2.1 -- 1.8 < > -- WBC 11.53* 15.93* -- < > -- HB 11.9 12.7 -- < > -- HCT 37.2 38.9 -- < > -- PLT 214 242 -- < > -- INR -- -- -- -- 1.5* < > = values in this interval not displayed. Exam: General: Alert and oriented x 3. No acute distress. HEENT: Atraumatic, no midline tenderness, no step off deformities. TTP posterior scalp. C-collar no longer in place. CV: Regular rate Respiratory: Unlabored breathing on RA, equal chest rise bilaterally. Abdomen: Soft, nondistended, NTP, no rebound, guarding. Neuro: AANDOx3, CNII-XII grossly intact, sensorimotor function grossly intact. Heme: No bleeding, no ecchymoses Skin: Skin warm and dry. MSK: AROM grossly wnl in all four extremities. ASSESSMENT AND PLAN: Active Hospital Problems Diagnosis Date Noted - Fall 05/26/2021 - Closed fracture of multiple ribs of both sides 05/26/2021 - Subarachnoid hemorrhage following injury, with loss of consciousness (HCC) 05/26/2021 - Basilar skull fracture (HCC) 05/25/2021 66 year old female?h/o HLD, cholecystectomy, hysterectomy presented to the ED via EMS as a level 3 trauma activation after a fall from a ladder from an unknown height prior to arrival?on 05/25. ? Imaging performed: 1. CT H/F/N/C/A/P 2. CXR ? Traumatic Injuries: R occipital bone extending to the base of the occipital bone, possible L basilar skull fx, nondisplaced bilateral posterior medial rib fractures involving at least 3 ribs, sphenoid fx. ? Operations/Procedures: 1.???N/a ? Care Plan: 1. SICU admission for close monitoring 2. Neurosurgery following 3. Clarify c-collar status (was not on and not in room) 4. CTA H/N without evidence of vascular injury. 5. Okay for clears/mIVF 6. Speech evaluation. 7. q1h neuro checks 8. Holding DVT ppx, okay for SCDs 9. Pain and nausea prn 10. Continue to monitor vitals, daily labs 11. Possible floor status today. ? PPX: 1. DVT:??Holding lovenox, okay for SCDs 2. Ulcer:??N/a 3. Vit D level if > 65 yo:?pending ? Consulted Services: 1. Trauma 2. SICU 3. Neurosurgery ? Dispo Plannin. PT/OT recs. ?Case management following. ? Incidentals: 1. Degenerative changes throughout cervical spine 2. Mild cerebral atrophy 3. Air fluid levels within L maxillary sinus, opacification of L sphenoid (more content not included)... [facility] 05-27-2021 Note HNO ID: [id number] Author: Jem Abebe MD Service: General Surgery Author Type: Resident Type: Progress Notes Filed: 05/27/2021 7:12 AM Note Text: Attestation signed by Mumtaz Baxter MD at 05/27/2021 10:46 AM Attending Note I personally saw and examined the patient. I reviewed the resident's note. I agree with the resident's assessment and plan unless otherwise noted. Signature: Mumtaz Baxter MD Date: 05/27/2021 Time: 10:46 AM Surgical Intensive Care Unit Progress Note SERVICE DATE: 05/27/2021 SERVICE TIME: 6:54 AM Subjective NAEON. Patient resting somewhat comfortably in bed. States head and ribs continue to hurt. Has not been taking pain medicine consistently. No past medical history on file. No past surgical history on file. No family history on file. Social History Tobacco Use - Smoking status: Not on file - Smokeless tobacco: Not on file Substance Use Topics - Alcohol use: Not on file - Drug use: Not on file (Not in a hospital admission) Current Facility-Administered Medications Medication Dose Route Frequency - NaCl 0.9% iv flush bag 20 mL INTRAVENOUS PRN - potassium chloride ER 20-40 mEq tab(s) (K-DUR, KLOR-CON) 20-40 mEq ORAL/FEEDING TUBE PRN Or - potassium chloride iv piggyback 20 mEq/100 mL 20 mEq INTRAVENOUS PRN - magnesium sulfate in sterile water 2 g in sterile water 50 ml 2 g INTRAVENOUS PRN - phosphorus 500 mg tab(s) (K PHOS NEUTRAL) 500 mg ORAL/FEEDING TUBE PRN(NO DISPENSE) - calcium gluconate 4 g in NaCl 0.9% 250 mL 4 g INTRAVENOUS PRN - sodium chloride 0.9 % (flush) 3-5 mL (BD POSIFLUSH) 3-5 mL INTRAVENOUS q 12 H - ipratropium-albuterol 3 mL nebulizer solution (DUONEB) 3 mL INHALATION q 6 H PRN - ondansetron 4 mg tab(s) (ZOFRAN) 4 mg ORAL q 6 H PRN Or - ondansetron (PF) 4 mg injection (ZOFRAN) 4 mg INTRAVENOUS q 6 H PRN - acetaminophen 1,000 mg tab(s) (TYLENOL) 1,000 mg ORAL QID - lidocaine 4 % 1 Patch (SALONPAS) 1 Patch TRANSDERMAL DAILY AT 9 PM And - lidocaine patch - REMOVE OTHER DAILY And - lidocaine - VERIFY PATCH OTHER q 8 H - senna-docusate 8.6-50 mg 1 tablet (SENNA-S) 1 tablet ORAL BID - phosphorus 250 mg tab(s) (K PHOS NEUTRAL) 250 mg ORAL PC and HS - NaCl 0.9% iv infusion 75 mL/hr INTRAVENOUS CONTINUOUS - oxyCODONE IR 2.5-5 mg tab(s) (ROXICODONE) 2.5-5 mg ORAL q 6 H PRN - pregabalin 50 mg cap(s) (LYRICA) 50 mg ORAL TID - calcium gluconate 4 g in NaCl 0.9% 250 mL 4 g INTRAVENOUS ONCE - potassium-sodium phosphates 1 Packet (NEUTRA-PHOS,PHOS-NAK) 1 Packet ORAL PC and HS Allergies As of Date: 05/25/2021 (No Known Allergies) Fully Assessed 05/25/2021 Objective PHYSICAL EXAM: BP 140/76 Pulse 67 Temp 98.2 Resp 15 Ht 5' 2 (1.58m) Wt 160 lb (72.6kg) SpO2 95% BMI 29.26 kg/(m2). NEURO: Alert AND Oriented, Cranial Nerves Grossly II-XII Intact, Moves All Extremities, Strength Symmetrical, No Sensory Deficits. NECK: Randlett collar in place. No lacerations. RESPIRATORY: Breathing comfortably on RA. CARDIOVASCULAR: Regular rate and rhythm. ABDOMEN: Non-distended. EXTREMITIES: Arm/shoulder normal bilaterally, forearm/elbow normal bilaterally, hand/wrist normal bilaterally, thigh/hip normal bilaterally, leg/knee normal bilaterally, foot/ankle normal bilaterally. DATA: Labs: Recent Labs 05/27/21 0412 05/26/21 0907 05/26/21 0405 05/25/21 2043 05/25/21 1710 NA 142 140 -- < > -- K 4.0 3.7 -- < > -- CHLOR 110* 107* -- < > -- CO2 25 21* -- < > -- BUN 12 13 -- < > -- CREAT 0.57* 0.66 -- < > -- GLUC 120* 145* -- < > -- ANION 7* 12 -- < > -- CA 8.4* 9.0 -- < > -- MG 2.1 -- 1.8 < > -- WBC 11.53* 15.93* -- < > -- HB 11.9 12.7 -- < > -- HCT 37.2 38.9 -- < > -- PLT 214 242 -- < > -- INR -- -- -- -- 1.5* < > = values in this interval not displayed. Diagnostic tests reviewed for today's visit: Most recent labs and imaging results. Assessment and Plan: 66 year old female h/o HLD, cholecystectomy, hysterectomy presented to the ED via EMS as a level 3 trauma activation after a fall from a ladder from an unknown height prior to arrival on 05/25. ? Imaging performed: 1. CT H/F/N/C/A/P 2. CXR ? Traumatic Injuries: R occipital bone extending to the base of the occipital bone, possible L basilar skull fx, nondisplaced bilateral posterior medial rib fractures involving at least 3 ribs ? Neuro: - scheduled tylenol, lidocaine, lyrica, prn oxy - neurosurgery consult - CTA H/N - neg - AM CT brain - faint bilateral temporoparietal and basal cistern SAH - repeat CT brain stable - q2h neuro checks - reduce to q4 - holding lovenox, okay for SCDs - no indication for keppra CV: - maintain MAPs > 65 - no indication for pressors at this time - continue to monitor vitals Resp: - 97% on RA (more content not included)... 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 Last discharge within 30 days: No Advance Directive: Current Advance Directive: Health Care Power of Soils Technician;Living Will In Chart: No Health LiteracyHow often do you need to have someone help you when you read instructions, pamphlets, or other written material from your doctor or pharmacy? : 1 - Never How confident are you filling out medical forms by yourself?: 1 - Extremely If Patient scores > 3 on either question, the following interventions were put into place:: Patient did not score > 3 on either question. Baseline Mental Status Prior to this Illness what was the patient's Baseline Mental Status?: Alert AND Oriented Prior to this illness, has anyone described the patient having any of the following behaviors?: Not Applicable Relationship of the informant to the patient:: Self;Spouse Name of Informant: : Gage Zaragoza spouse Functional Status: Independent Does Patient Currently Receive Any Community Services or Home Care?: None Equipment Prior to Admission: None Has the Patient Been in a Penitentiary Facility in the Past 30 days?: No SOCIAL: Living Arrangements: Home Lives With: Spouse Financial Resources: Employed Primary Contact: Extended Emergency Contact Information Primary Emergency Contact: Barrett Mon Mobile Relation: Son Secondary Emergency Contact: GAGE ZARAGOZA Mobile Relation: Spouse Supportive Patient Contact:: Yes Contact Resources: Family Family Name/Phone: Son Barrett Mon [phone] and spouse Gage Shellie Caregiver AssessmentCaregiver is ready, willing and able to meet the patient's needs as recommended by the inter-professional team:: Yes Does the patient have an acute stroke diagnosis, or has the patient had a stroke during this admission?: No Patient's transition needs and plan for meeting these needs: Supportive family. Anticipate return home with family. Follow up with providers in the community Patient's perception of need for this admission: Fall skull fracture Medication Adherance I am convinced of the importance of my prescription medication: 0 - Agree Completely I worry that my prescription medication will do more harm than good to me : 0 - Disagree Completely I feel financially burdened by my [id number] expenses for my prescription medication:: 0 - Disagree Completely Risk Score: 0 Patient is categorized as: Low risk < 2 Are you interested in bedside delivery of your medications? No Is Patient Psychosocially Complex?: No ASSESSMENT AND PLAN: Medical Needs: Medical Needs: Two or more chronic diseases;Fall risk or frequent falls Psychosocial Needs: Psychosocial Needs: None FREEDOM OF CHOICE EXPLAINED: POTENTIAL TRANSITION PLANS Home Information obtained from pt, pt spouse and EMR review. Met with pt and spouse in ED 01. HPI: Level 3 trauma activation after a fall from a ladder from an unknown height prior to arrival. Patient was putting up hilary lights when she lost her balance and fell backward landing on her back and hitting her head on the sidewalk. Imaging was significant for nondisplaced fx or R occipital bone extending to the base of the occipital bone, possible L basilar skull fx, nondisplaced bilateral posterior medial rib fractures involving at least 3 ribs. Transferred to [facility] from [facility]. 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 Continue with bilat back pain due to rib fractures. Awaiting ICU bed. SIGNATURE: Marlin Greenwood RN PATIENT NAME: Lorie Mon DATE: May 26, 2021 TIME: 6:24 PM PAGER/CONTACT #: [phone] [facility] documented as of this encounter (statuses as of 05/24/2022) [facility]11-11-2021 History of Past illness Narrative* Problem Noted Date Resolved Date Fall 05/26/2021 05/30/2021 documented as of this encounter (statuses as of 05/25/2022) [facility]11-11-2021 History of Past illness Narrative* Problem Noted Date Resolved Date Fall 05/26/2021 05/30/2021 documented as of this encounter (statuses as of 05/26/2022) [facility]11-11-2021 History of Past illness Narrative* Problem Noted Date Resolved Date Fall 05/26/2021 05/30/2021 documented as of this encounter (statuses as of 06/16/2022) [facility] History of Past illness Narrative* Problem Noted Date Resolved Date Fall 05/26/2021 05/30/2021 documented as of this encounter (statuses as of 06/30/2022) [facility] History of Past illness Narrative* Problem Noted Date Resolved Date Fall 05/26/2021 05/30/2021 documented as of this encounter (statuses as of 06/30/2022) [facility] History of Past illness Narrative* Problem Noted Date Resolved Date Fall 05/26/2021 05/30/2021 documented as of this encounter (statuses as of 07/27/2022) [facility]11-11-2021 NoteHNO ID: [id number] Author: Presley Perez MD Service: General Surgery Author Type: Physician Type: Progress Notes Filed: 05/26/2021 2:57 PM Note Text: Trauma Surgery Progress Note SERVICE DATE: 05/26/2021 Trauma Service Pager: For questions or concerns Mon-Fri 6a-5p please page [phone]. After 5pm and on Weekends and Holidays, please page [phone] if in ICU or [phone] if on RNF. SUBJECTIVE: NAEO, AF, HDS. Pain controlled this morning. CTA without vascular compromise, though sphenoid sinus fx identified. Slight nausea with some emesis after fentanyl, improved with zofran. Randlett remains in place. No additional complaints. OBJECTIVE: Vitals: Temp (24hrs), Av.8 ?C (98.2 ?F), Min:36.8 ?C (98.2 ?F), Max:36.8 ?C (98.2 ?F) BP 133/67 Pulse 82 Temp 36.8 ?C (98.2 ?F) Resp 16 Ht 157.5 cm (5' 2 ) Wt 72.6 kg (160 lb) SpO2 96% BMI 29.26 kg/m? O2 Therapy: Nasal Cannula IANDO: MEDICATIONS Current Facility-Administered Medications Medication Dose Route Frequency - magnesium sulfate in sterile water 4 g in 100 mL iv piggyback 4 g INTRAVENOUS ONCE - phosphorus 250 mg tab(s) (K PHOS NEUTRAL) 250 mg ORAL PC and HS - potassium phosphate 45 mmol in NaCl 0.9% 500 mL 45 mmol INTRAVENOUS ONCE - NaCl 0.9% iv infusion 75 mL/hr INTRAVENOUS CONTINUOUS - oxyCODONE IR 2.5-5 mg tab(s) (ROXICODONE) 2.5-5 mg ORAL q 6 H PRN - NaCl 0.9% iv flush bag 20 mL INTRAVENOUS PRN - iv contrast (radiology procedure) INTRAVENOUS DIRECTED PRN - potassium chloride ER 20-40 mEq tab(s) (K-DUR, KLOR-CON) 20-40 mEq ORAL/FEEDING TUBE PRN Or - potassium chloride iv piggyback 20 mEq/100 mL 20 mEq INTRAVENOUS PRN - magnesium sulfate in sterile water 2 g in sterile water 50 ml 2 g INTRAVENOUS PRN - phosphorus 500 mg tab(s) (K PHOS NEUTRAL) 500 mg ORAL/FEEDING TUBE PRN(NO DISPENSE) - calcium gluconate 4 g in NaCl 0.9% 250 mL 4 g INTRAVENOUS PRN - sodium chloride 0.9 % (flush) 3-5 mL (BD POSIFLUSH) 3-5 mL INTRAVENOUS q 12 H - ipratropium-albuterol 3 mL nebulizer solution (DUONEB) 3 mL INHALATION q 6 H PRN - ondansetron 4 mg tab(s) (ZOFRAN) 4 mg ORAL q 6 H PRN Or - ondansetron (PF) 4 mg injection (ZOFRAN) 4 mg INTRAVENOUS q 6 H PRN - acetaminophen 1,000 mg tab(s) (TYLENOL) 1,000 mg ORAL QID - lidocaine 4 % 1 Patch (SALONPAS) 1 Patch TRANSDERMAL DAILY AT 9 PM And - lidocaine patch - REMOVE OTHER DAILY And - lidocaine - VERIFY PATCH OTHER q 8 H - pregabalin 50 mg cap(s) (LYRICA) 50 mg ORAL TID - senna-docusate 8.6-50 mg 1 tablet (SENNA-S) 1 tablet ORAL BID Labs: Recent Labs 05/26/21 0907 05/26/21 0405 05/25/21204205/25/21 1710 NA -- -- 140 -- K -- -- 3.7 -- CHLOR -- -- 107* -- CO2 -- -- 20* -- BUN -- -- 17 -- CREAT -- -- 0.67 -- GLUC -- -- 176* -- ANION -- -- 13 -- CA -- -- 8.7 -- MG -- 1.8 1.6* -- WBC 15.93* -- 13.45* -- HB 12.7 -- 13.1 -- HCT 38.9 -- 40.1 -- PLT 242 -- 231 -- INR -- -- -- 1.5* Exam: General: Alert and oriented x 3. No acute distress. HEENT: Atraumatic, no midline tenderness, no step off deformities. Randlett in place. CV: Regular rate Respiratory: Unlabored breathing on RA, equal chest rise bilaterally. Abdomen: Soft, nondistended, NTP, no rebound, guarding. Neuro: AANDOx3, CNII-XII grossly intact, sensorimotor function grossly intact. Heme: No bleeding, no ecchymoses Skin: Skin warm and dry. MSK: AROM grossly wnl in all four extremities. ASSESSMENT AND PLAN: Active Hospital Problems Diagnosis Date Noted - Basilar skull fracture (HCC) 05/25/2021 ? 66 year old female h/o HLD, cholecystectomy, hysterectomy presented to the ED via EMS as a level 3 trauma activation after a fall from a ladder from an unknown height prior to arrival on 05/25. ? Imaging performed: 1. CT H/F/N/C/A/P 2. CXR ? Traumatic Injuries: R occipital bone extending to the base of the occipital bone, possible L basilar skull fx, nondisplaced bilateral posterior medial rib fractures involving at least 3 ribs, sphenoid fx. ? Operations/Procedures: 1. N/a ? Care Plan: 1. SICU admission for close monitoring 2. Neurosurgery following 3. Maintain Randlett collar at all times 4. CTA H/N without evidence of vascular injury. 5. Repeat CT brain stable. 6. Okay for clears/mIVF 7. q1h neuro checks 8. Holding DVT ppx, okay for SCDs 9. Pain and nausea prn 10. Continue to monitor vitals, daily labs ? PPX: 1. DVT: Holding lovenox, okay for SCDs 2. Ulcer: N/a 3. Vit D level if > 65 yo: pending ? Consulted Services: 1. Trauma 2. SICU 3. Neurosurgery ? Dispo Plannin. PT/OT recs. Case management following. ? Incidentals: 1. Degenerative changes throughout cervical spine 2. Mild cerebral atrophy 3. Air fluid levels within L maxillary sinus, opacification of L sphenoid sinus 4. Partially calcified nodule anterior aspect of RUL 5. Degenerative changes throughout thoracic spine 6. Fatty liver 7. Scat (more content not included)...[facility]11-11-2021 NoteHNO ID: [id number] Author: Mercedez Cuevas PA-C Service: Neurosurgery Author Type: Physician Rheumatology Nurse Type: Progress Notes Filed: 05/26/2021 11:47 AM Note Text: Neurosurgery Progress Note SERVICE DATE: 05/26/2021 SUBJECTIVE: Awake and alert in bed. C/o being 'sore' but not in significant pain. States able to take deep breaths but movement for transfers is very painful to the ribs. Using icepack to forehead/eyes. Wants to go home but agreeable to stay a day for observation. OBJECTIVE: Vitals: Temp (24hrs), Av.8 ?C (98.2 ?F), Min:36.8 ?C (98.2 ?F), Max:36.8 ?C (98.2 ?F) BP 122/67 Pulse 80 Temp 36.8 ?C (98.2 ?F) Resp 15 Ht 157.5 cm (5' 2 ) Wt 72.6 kg (160 lb) SpO2 (!) 94% BMI 29.26 kg/m? O2 Therapy: Nasal Cannula MEDICATIONS Current Facility-Administered Medications Medication Dose Route Frequency - phosphorus 250 mg tab(s) (K PHOS NEUTRAL) 250 mg ORAL PC and HS - potassium phosphate 45 mmol in NaCl 0.9% 500 mL 45 mmol INTRAVENOUS ONCE - NaCl 0.9% iv infusion 75 mL/hr INTRAVENOUS CONTINUOUS - oxyCODONE IR 2.5-5 mg tab(s) (ROXICODONE) 2.5-5 mg ORAL q 6 H PRN - pregabalin 50 mg cap(s) (LYRICA) 50 mg ORAL TID - NaCl 0.9% iv flush bag 20 mL INTRAVENOUS PRN - iv contrast (radiology procedure) INTRAVENOUS DIRECTED PRN - potassium chloride ER 20-40 mEq tab(s) (K-DUR, KLOR-CON) 20-40 mEq ORAL/FEEDING TUBE PRN Or - potassium chloride iv piggyback 20 mEq/100 mL 20 mEq INTRAVENOUS PRN - magnesium sulfate in sterile water 2 g in sterile water 50 ml 2 g INTRAVENOUS PRN - phosphorus 500 mg tab(s) (K PHOS NEUTRAL) 500 mg ORAL/FEEDING TUBE PRN(NO DISPENSE) - calcium gluconate 4 g in NaCl 0.9% 250 mL 4 g INTRAVENOUS PRN - sodium chloride 0.9 % (flush) 3-5 mL (BD POSIFLUSH) 3-5 mL INTRAVENOUS q 12 H - ipratropium-albuterol 3 mL nebulizer solution (DUONEB) 3 mL INHALATION q 6 H PRN - ondansetron 4 mg tab(s) (ZOFRAN) 4 mg ORAL q 6 H PRN Or - ondansetron (PF) 4 mg injection (ZOFRAN) 4 mg INTRAVENOUS q 6 H PRN - acetaminophen 1,000 mg tab(s) (TYLENOL) 1,000 mg ORAL QID - lidocaine 4 % 1 Patch (SALONPAS) 1 Patch TRANSDERMAL DAILY AT 9 PM And - lidocaine patch - REMOVE OTHER DAILY And - lidocaine - VERIFY PATCH OTHER q 8 H - senna-docusate 8.6-50 mg 1 tablet (SENNA-S) 1 tablet ORAL BID Labs: Recent Labs 05/26/21 0907 05/26/21 0405 05/25/21 2043 05/25/21 1710 NA 140 -- 140 -- K 3.7 -- 3.7 -- CHLOR 107* -- 107* -- CO2 21* -- 20* -- BUN 13 -- 17 -- CREAT 0.66 -- 0.67 -- GLUC 145* -- 176* -- ANION 12 -- 13 -- CA 9.0 -- 8.7 -- MG -- 1.8 1.6* -- WBC 15.93* -- 13.45* -- HB 12.7 -- 13.1 -- HCT 38.9 -- 40.1 -- PLT 242 -- 231 -- INR -- -- -- 1.5* Exam: GENERAL: Awake and alert; lying flat in bed; present; NAD; cooperative; pleasant NEURO: Orientedx3; speech clear and fluent; msp grossly intact and equal HEENT: Normocephalic; perrl/eomi; no facial droop; no drainage from nares or ears LUNGS: Unlabored breathing CARDIAC: Rate and rhythm as above ASSESSMENT AND PLAN: Active Hospital Problems Diagnosis Date Noted - Basilar skull fracture (HCC) 05/25/2021 66 year old female fall from ladder - occipital/basilar skull fx, scattered SAH; rib fxs - neuro stable - no focal deficits - pain control - CTH today showing SAH not well visualized on prior - repeat CTH in am - hold chem ppx - admit to trauma SIGNATURE: Mercedez Cuevas PA-C PATIENT NAME: Lorie Mon DATE: May 26, 2021 TIME: 11:37 AM Pager: [phone] NoteHNO ID: [id number] Author: Love Dinh Service: Pharmacy Author Type: ? Type: Plan of Care Filed: 05/26/2021 8:49 AM Note Text: Attestation signed by Chepe Andrade [facility] at 05/26/2021 10:16 AM I agree with the med hx obtained by the PharmD candidate. Med hx obtained via [facility], [facility] and patient interview. Nothing per [facility] since Jul 2019. Per [facility], Vascepa last filled 03/10 90-day and patient reports forgetting to take PM doses. Updated vaccine records per [facility] - Flu-HD + Prevnar, no records of covid vaccination. 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 ammonium lactate (LAC-HYDRIN) 12 % lotion ? VASCEPA 1 gram capsule Medications CHANGED on COMPOSITION FLOOR LAYER medication list ? None Medications REMOVED from COMPOSITION FLOOR LAYER medication list ? None Patient is good historian and reports potential non-adherence to vascepa (omega-3 fatty acids) in the evenings. No barriers to adherence noted other than forgetfulness. The below information represents the best possible medication history: Yes Medication history completed by: foiling machine operator: Love Dinh Source of history: Patient: Reliability of source: Appears reliable, clearly identified: Medication route, Medication frequency, Timing of last dose and Indications Pharmacy records: [facility] Pharmacy Medication nonadherence identified: Forgetful Reconciliation completed: No, pharmacist not yet reviewed Patient interested in Bedside Delivery Services or using OP Pharmacy at discharge? Unable to assess Preferred outpatient pharmacy: e- [facility]/pharmacy #[id number] [place] [address] - [address] [phone] [facility] [id number] Allergies: No Known Allergies Prior to Admission medications as of 05/26/21 0846 Medication Sig Last Dose Taking VASCEPA 1 gram capsule Take 2 capsules by mouth twice daily. Yes ammonium lactate (LAC-HYDRIN) 12 % lotion Apply 1 application to affected area twice daily. Apply to arms and legs twice daily Yes Love Dinh 05/26/2021[facility]11-11-2021 NoteHNO ID: [id number] Author: Jem Abebe MD Service: General Surgery Author Type: Resident Type: Progress Notes Filed: 05/26/2021 7:42 AM Note Text: Attestation signed by Lalo Vasques MD at 06/22/2021 4:41 PM Attending Note I evaluated the patient and personally participated in the plascencia components on 05/26/2021 I agree with the resident's findings and plan as documented and have discussed the case and management of the patient's care with the resident. Advance diet, neuro-monitoring and Neurochecks per Neurosurgery. Decrease IV fluids, speech, PT/OT evaluations Collar clearance per spine Bowel regimen, aggressive pulm toilet, multi-modal pain control. Lalo Vasques MD Delayed entry Surgical Intensive Care Unit Progress Note SERVICE DATE: 05/26/2021 SERVICE TIME: 7:16 AM Subjective NAEON. VSS. Resting comfortably. Alert and oriented. Grossly neurologically intact. No past medical history on file. No past surgical history on file. No family history on file. Social History Tobacco Use - Smoking status: Not on file - Smokeless tobacco: Not on file Substance Use Topics - Alcohol use: Not on file - Drug use: Not on file (Not in a hospital admission) Current Facility-Administered Medications Medication Dose Route Frequency - NaCl 0.9% iv flush bag 20 mL INTRAVENOUS PRN - iv contrast (radiology procedure) INTRAVENOUS DIRECTED PRN - potassium chloride ER 20-40 mEq tab(s) (K-DUR, KLOR-CON) 20-40 mEq ORAL/FEEDING TUBE PRN Or - potassium chloride iv piggyback 20 mEq/100 mL 20 mEq INTRAVENOUS PRN - magnesium sulfate in sterile water 2 g in sterile water 50 ml 2 g INTRAVENOUS PRN - phosphorus 500 mg tab(s) (K PHOS NEUTRAL) 500 mg ORAL/FEEDING TUBE PRN(NO DISPENSE) - calcium gluconate 4 g in NaCl 0.9% 250 mL 4 g INTRAVENOUS PRN - sodium chloride 0.9 % (flush) 3-5 mL (BD POSIFLUSH) 3-5 mL INTRAVENOUS q 12 H - lactated ringers iv infusion 100 mL/hr INTRAVENOUS CONTINUOUS - ipratropium-albuterol 3 mL nebulizer solution (DUONEB) 3 mL INHALATION q 6 H PRN - ondansetron 4 mg tab(s) (ZOFRAN) 4 mg ORAL q 6 H PRN Or - ondansetron (PF) 4 mg injection (ZOFRAN) 4 mg INTRAVENOUS q 6 H PRN - acetaminophen 1,000 mg tab(s) (TYLENOL) 1,000 mg ORAL QID - oxyCODONE IR 5-10 mg tab(s) (ROXICODONE) 5-10 mg ORAL q 6 H PRN - fentaNYL 50 mcg/mL 25 mcg injection (SUBLIMAZE) 25 mcg INTRAVENOUS q 2 H PRN - lidocaine 4 % 1 Patch (SALONPAS) 1 Patch TRANSDERMAL DAILY AT 9 PM And - lidocaine patch - REMOVE OTHER DAILY And - lidocaine - VERIFY PATCH OTHER q 8 H - pregabalin 50 mg cap(s) (LYRICA) 50 mg ORAL TID - senna-docusate 8.6-50 mg 1 tablet (SENNA-S) 1 tablet ORAL BID - magnesium sulfate in sterile water 4 g in 100 mL iv piggyback 4 g INTRAVENOUS ONCE - potassium-sodium phosphates 1 Packet (NEUTRA-PHOS,PHOS-NAK) 1 Packet ORAL PC and HS Allergies As of Date: 05/25/2021 (No Known Allergies) Fully Assessed 05/25/2021 Objective PHYSICAL EXAM: BP 123/67 Pulse 92 Temp 98.2 Resp 17 Ht 5' 2 (1.58m) Wt 160 lb (72.6kg) SpO2 94% BMI 29.26 kg/(m2). O2 Therapy: Nasal Cannula, Liters: 2 NEURO: Alert AND Oriented, Cranial Nerves Grossly II-XII Intact, Moves All Extremities, Strength Symmetrical, No Sensory Deficits. NECK: Randlett collar in place. No lacerations. RESPIRATORY: Breathing comfortably on RA. CARDIOVASCULAR: Regular rate and rhythm. ABDOMEN: Non-distended. EXTREMITIES: Arm/shoulder normal bilaterally, forearm/elbow normal bilaterally, hand/wrist normal bilaterally, thigh/hip normal bilaterally, leg/knee normal bilaterally, foot/ankle normal bilaterally. DATA: Labs: Recent Labs 05/26/21 0405 05/25/21 2043 05/25/21 1710 NA -- 140 -- K -- 3.7 -- CHLOR -- 107* -- CO2 -- 20* -- BUN -- 17 -- CREAT -- 0.67 -- GLUC -- 176* -- ANION -- 13 -- CA -- 8.7 -- MG 1.8 1.6* -- WBC -- 13.45* -- HB -- 13.1 -- HCT -- 40.1 -- PLT -- 231 -- INR -- -- 1.5* Diagnostic tests reviewed for today's visit: Most recent labs and imaging results. Assessment and Plan: 66 year old female h/o HLD, cholecystectomy, hysterectomy presented to the ED via EMS as a level 3 trauma activation after a fall from a ladder from an unknown height prior to arrival on 05/25. ? Imaging performed: 1. CT H/F/N/C/A/P 2. CXR ? Traumatic Injuries: R occipital bone extending to the base of the occipital bone, possible L basilar skull fx, nondisplaced bilateral posterior medial rib fractures involving at least 3 ribs ? Neuro: - scheduled tylenol, lidocaine, lyrica, prn oxy/fentanly -dced fentanyl - neurosurgery consult - CTA H/N - neg - AM CT brain - faint bilateral temporoparietal and basal cistern SAH - repeat CT brain pending @ noon - q1h neuro check (more content not included)...[facility] Evaluation note* Diagnosis Intracranial hemorrhage (HCC) Unspecified intracranial hemorrhage [facility] Diagnosis Overflow diarrhea- Primary Diarrhea [facility] Diagnosis Overflow diarrhea Diarrhea [facility]* Diagnosis Incontinence of feces, unspecified fecal incontinence type- Primary [facility] Diagnosis Incontinence of feces, unspecified fecal incontinence type- Primary [facility]* Diagnosis Overflow diarrhea Diarrhea [facility]* Diagnosis Incontinence of feces, unspecified fecal incontinence type- Primary [facility] Diagnosis Incontinence of feces, unspecified fecal incontinence type- Primary Irregular bowel habits Other specified disorder of intestines documented in this encounter [facility] for referral (narrative)* Diagnostic Procedure Only (Routine) - Authorized Specialty Diagnoses / Procedures Referred By Contsherri t Referred To Contact XR IMAGING Diagnoses Overflow diarrhea Procedures XR DEFECOGRAPHY RADIOLOGIC EXAM COLON SINGLE CONTRAST STUDY Artie Laura MD [address] [place] [address] Xr Imaging Referral ID Status Reason Start Date Expiration Date Visits Requested Visits Authorized [id number] Authorized Auto-Generat ed Referral 2 06/10/2023 1 1 * Outpatient Procedure (Routine) - Authorized Specialty Diagnoses / Procedures Referred By Contac t Referred To Contact [facility] Diagnoses Overflow diarrhea Procedures ADULT [place] ANORECTAL MANOMETRY ANORECTAL MANOMETRY Artie Laura MD [address] [place] [address] [facility] [address] [place], [place] [id number] Referral ID Status Reason Start Date Expiration Date Visits Requested Visits Authorized [id number] Authorized Auto-Generat ed Referral 2 05/11/2023 1 1 [facility] for referral (narrative)* Diagnostic Procedure Only (Routine) - Closed Specialty Diagnoses / Procedures Referred By Contac t Referred To Contact XR IMAGING Diagnoses Overflow diarrhea Procedures XR DEFECOGRAPHY RADIOLOGIC EXAM COLON SINGLE CONTRAST STUDY Artie Laura MD [address] [id number] Xr Imaging Referral ID Status Reason Start Date Expiration Date V isits Requested Visits Authorized [id number] Closed Auto-Generate d Referral 05/11/2022 06/10/2023 1 1 [facility] for visit Narrative* Outpatient Procedure (Routine) - Closed Specialty Diagnoses / Procedures Referred By Contac t Referred To Contact [facility] Diagnoses Overflow diarrhea Procedures ADULT [place] ANORECTAL MANOMETRY ANORECTAL MANOMETRY Artie Laura MD [address] [place] [address] [facility] [address] [place] [id number] Referral ID Status Reason Start Date Expiration Date V isits Requested Visits Authorized [id number] Closed Auto-Generate d Referral 05/11/2022 05/11/2023 1 1 [facility] Summary Purpose Family History No Family History Records FoundNo Family History Records FoundNo Family History Records FoundNo Family History Records FoundNo Family History Records Found Advance Directives No Advanced Directives Records FoundDocuments on File Type Date Recorded 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 Advance Directive(s) 05/25/2021 6:20 PM Reason for Referral Specialty Diagnoses / Procedures Referred By Contac t Referred To Contact CT IMAGING Diagnoses Intracranial hemorrhage (HCC) Procedures CT BRAIN WO IVCON CT SCAN HEAD/BRAIN Mercedez Cuevas, LEVI [address] [place] [address] Ct Imaging Referral ID Status Reason Start Date Expiration Date Visits Requested Visits Authorized [id number] Pending Review Auto-Generat ed Referral 1 06/26/2022 1 1 Specialty Diagnoses / Procedures Referred By Contac t Referred To Contact [facility] Diagnoses Incontinence of feces, unspecified fecal incontinence type Procedures CONSULT TO PHYSICAL THERAPY PHYSICAL THERAPY EVALUATION HIGH COMPLEX 45 MINS Shira Lange, CADD OPERATOR.MANAGER VALUATION [address] [facility], [address] [place] [address] [facility] [place] [address] [phone] Referral ID Status Reason Start Date Expiration Date Visits Requested Visits Authorized [id number] Pending Review Auto-Generat ed Referral 2 05/25/2023 1 1 Additional Source Comments INFORMATION SOURCE (unrecogn ized section and content) DATE CREATED AUTHOR AUTHOR'S ORGANIZ ATION 05/31/2021 [facility] DATE CREATED AUTHOR AUTHOR'S ORGANIZ ATION 06/24/2021 [facility] DATE CREATED AUTHOR AUTHOR'S ORGANIZ ATION 04/21/2022 [facility] DATE CREATED AUTHOR AUTHOR'S ORGANIZ ATION 07/31/2022 [facility] Source Comments (unrecognize d section and content) In the event this informatio n is protected by the Federal Confidentiality of Alcohol and Drug Abuse Patient Records regulations: The Federal rules restrict any use of the information to criminally investigate or prosecute any alcohol or drug abuse patient.[facility] the event this information is protected by the Federal Confidentiality of Alcohol and Drug Abuse Patient Records regulations: The Federal rules restrict any use of the information to criminally investigate or prosecute any alcohol or drug abuse patient.[facility] the event this information is protected by the Federal Confidentiality of Alcohol and Drug Abuse Patient Records regulations: The Federal rules restrict any use of the information to criminally investigate or prosecute any alcohol or drug abuse patient.[facility] the event this information is protected by the Federal Confidentiality of Alcohol and Drug Abuse Patient Records regulations: The Federal rules restrict any use of the information to criminally investigate or prosecute any alcohol or drug abuse patient.[facility] the event this information is protected by the Federal Confidentiality of Alcohol and Drug Abuse Patient Records regulations: The Federal rules restrict any use of the information to criminally investigate or prosecute any alcohol or drug abuse patient.[facility] the event this information is protected by the Federal Confidentiality of Alcohol and Drug Abuse Patient Records regulations: The Federal rules restrict any use of the information to criminally investigate or prosecute any alcohol or drug abuse patient.[facility] the event this information is protected by the Federal Confidentiality of Alcohol and Drug Abuse Patient Records regulations: The Federal rules restrict any use of the information to criminally investigate or prosecute any alcohol or drug abuse patient.[facility] the event this information is protected by the Federal Confidentiality of Alcohol and Drug Abuse Patient Records regulations: The Federal rules restrict any use of the information to criminally investigate or prosecute any alcohol or drug abuse patient.[facility] the event this information is protected by the Federal Confidentiality of Alcohol and Drug Abuse Patient Records regulations: The Federal rules restrict any use of the information to criminally investigate or prosecute any alcohol or drug abuse patient.[facility] the event this information is protected by the Federal Confidentiality of Alcohol and Drug Abuse Patient Records regulations: The Federal rules restrict any use of the information to criminally investigate or prosecute any alcohol or drug abuse patient.[facility] Care Teams (unrecognized sec tion and content) Bilingual Social Worker Relationship Specialty Start Date End Date Damian Hagen MD [address] [facility] [place] [address] Referring Neurosurgery 07/05/21 Macy Sorenson, DO [address] [place] [address] Referring Family Medicine 04/05/22 Bilingual Social Worker Relationship Specialty Start Date End Date Gage Becerra [address] [address] PCP - General Family Medicine 05/25/22 Damian Hagen MD [address] [facility] [place] [address] Referring Neurosurgery 07/05/21 Macy Sorenson, DO [address] [place] [facility] [address] Referring Family Medicine 04/05/22 Bilingual Social Worker Relationship Specialty Start Date End Date Gage Becerra [address] [place] [address] PCP - General Family Medicine 05/25/22 Damian Hagen MD [address] [facility] [place] [address] Referring Neurosurgery 07/05/21 Macy Sorenson, DO [address] [place] [address] Referring Family Medicine 04/05/22 Bilingual Social Worker Relationship Specialty Start Date End Date Gage Becerra [address] [facility] [address] [place] [address] PCP - General Family Medicine 05/25/22 Damian Hagen MD [address] [facility] [place] [address] Referring Neurosurgery 07/05/21 Macy Sorenson, DO [address] [place] [facility] [address] Referring Family Medicine 04/05/22 Bilingual Social Worker Relationship Specialty Start Date End Date Gage Becerra [address] [facility] [address] [place] [address] PCP - General Family Medicine 05/25/22 Damian Hagen MD [address] [facility] [place] [address] Referring Neurosurgery 07/05/21 Macy Sorenson, DO [address] [place] [address] Referring Family Medicine 04/05/22 Bilingual Social Worker Relationship Specialty Start Date End Date Gage Becerra [address] [facility] [address] [place] [address] PCP - General Family Medicine 05/25/22 Damian Hagen MD [address] [facility] [place] [address] Referring Neurosurgery 07/05/21 Macy Sorenson, DO [address] [place] [address] Referring Family Medicine 04/05/22 Reason for Visit (unrecogniz ed section and content) Specialty Diagnoses / Procedures Referred By Contac t Referred To Contact [facility] Diagnoses Incontinence of feces, unspecified fecal incontinence type Procedures CONSULT TO PHYSICAL THERAPY PHYSICAL THERAPY EVALUATION HIGH COMPLEX 45 MINS Shira Lange, STEVEN.MANAGER VALUATION [address] [id number] [facility] [place] [address] Referral ID Status Reason Start Date Expiration Date V isits Requested Visits Authorized [id number] Authorized 07/16/2021 07/15/2022 30 30 Reason Comments Diarrhea Gas Reason Comments Manometry Specialty Diagnoses / Procedures Referred By Contac t Referred To Contact [facility] Diagnoses Overflow diarrhea Procedures ADULT [place] ANORECTAL MANOMETRY ANORECTAL MANOMETRY Artie Laura MD [address] [place] [address] [facility] [address] [place] [address] Referral ID Status Reason Start Date Expiration Date V isits Requested Visits Authorized [id number] Closed Auto-Generate d Referral 05/11/2022 05/11/2023 1 1 Reason Comments Physical Therapy Reason Comments Radio GI Main HB6 Specialty Diagnoses / Procedures Referred By Contac t Referred To Contact XR IMAGING Diagnoses Overflow diarrhea Procedures XR DEFECOGRAPHY RADIOLOGIC EXAM COLON SINGLE CONTRAST STUDY Artie Laura MD [address] [place] [address] Xr Imaging Referral ID Status Reason Start Date Expiration Date V isits Requested Visits Authorized [id number] Closed Auto-Generate d Referral 05/11/2022 06/10/2023 1 1 Reason Comments Established Patient FOR RECORDS PERTAINING TO PATIENTS WHO ARE OR HAVE BEEN ENROLLED IN A CHEMICAL DEPENDENCY/SUBSTANCEABUSE PROGRAM, SOME INFORMATION MAY BE OMITTED. This clinical summary was aggregated from multiple sources. Caution should be exercised in using it in the provision of clinical care. This summary normalizes information from multiple sources, and as a consequence, information in this document may materially change the coding, format and clinical context of patient data. In addition, data may be omitted in some cases. CLINICAL DECISIONS SHOULD BE BASED ON THE PRIMARY CLINICAL RECORDS. [facility] [employer] provides no warranty or guarantee of the accuracy or completeness of information in this document.
[2023-07-20 08:43] VITALS: BP 122/78; PULSE 85; RESP 18; TEMP 36.2; O2SAT 100; BMI 28.9
[2023-07-20] MEDS: Lactated Ringers 1,000 ML 15 ML IV (08:53)
--- NOTE | 2023-07-20 09:21 | PCM.HP.BLA ---
History and Physical Date of Admission: 07/20/23 Intake Vital Signs 05/25/2113:58 06/14/2309:27 Height 5 ft 2 in 5 ft 2 in Weight: 165 lb BMI 30.2 BP 118/82 H Blood Pressure Location Rt brachial Position Sitting Respiration 18 Pulse 73 Temp 96.0 F L Temp Source Temporal Pulse Oximetry (%) 97 Oxygen Delivery Method room air Intake Visit Reasons: UPPER & LOWER FOR BARRETTS Chief Complaint: Consult for upper and lower endoscopy Jockey Valet Required: No Is patient in pain?: No Allergies No Known Allergies Allergy (Verified 06/14/23 09:28) Medications calcium carbonate 500 mg calcium (1,250 mg) tablet 500 mg PO DAILY 06/14/23 [History Confirmed 06/14/23] icosapent ethyl 1 gram capsule (Vascepa) 2 g PO BID 06/14/23 [History Confirmed 06/14/23] PFSH Medical History History of back problems History of colon polyps Non-smoker Surgical History History of cholecystectomy History of hysterectomy History of knee surgery History of tonsillectomy and adenoidectomy Family History (Updated 06/14/23 @ 09:25 by Laquita Billings) Father Cancer Leukemia and stomach cancerMother Breast cancer Social History (Updated 06/14/23 @ 09:27 by Laquita Billings) Smoking Status: Never smoker alcohol intake: current alcohol intake frequency: a few times a week substance use type: does not use HPI HPI HPI: Patient is a 68-year-old female here for double scope. She was sent here for follow-up colonoscopy as she had a colon polyp 5 years ago which was a tubular adenoma. She denies any abdominal pain or blood in the stool. She was also sent here for EGD as she had an irregular salmon-colored mucosa at the GE junction. This was biopsied and did not show Gann's but she was recommended for follow-up in 5 years as well. ROS General General: No weight change, appetite, fatigue, colon cancer, breast cancer or weakness HEENT HEENT: No difficulty swallowing, eye injury, eye surgery, swollen glands or hoarseness Endo Endocrine: No thyroid disease, diabetes mellitus, thyroid cancer, Hair loss, heat intolerance or cold intolerance Skin Skin: No rash or changing moles Breast Breast: No left breast lump, right breast lump, nipple discharge, breast pain, abnormal mammogram, abnormal US or breast enlargement Musc Musculoskeletal: Yes back problems; No arthritis, rheumatoid arthritis, gout or joint pain Cardio Cardiovascular: No murmur, pacemaker, heart disease, atrial fibrillation, high blood pressure, heart attack, heart stent, palpitations, shortness of breat with exertion or chest pain Psych Psychiatric: No depression, anxiety or hearing voices Resp Respiratory: No shortness of breath, No sleep apnea, No cough, No COPD, No asthma, No emphysema and No wheezing Gastro Gastrointestinal: No abdominal pain, No nausea or vomiting, Yes diarrhea, No constipation, No blood in stool, No acid reflux, No hemorrhoids, No ulcers, No gallbladder problem and No black,tarry stools Additional Details: Occasional diarrhea. Had a history of GERD but no longer takes PPI's [place] Hematologic: No blood thinners, No blood disorders, No bleeding, No anemia and No blood clots Neuro Neurologic: No system reviewed and no additional complaints, except as documented, No as per HPI, No abnormal gait, No abnormal hearing, No abnormal movements, No abnormal speech, No behavioral changes, No burning sensations, No confusion, No convulsions, No disequilibrium, No dizziness, No localized weakness, No frequent falls, No headache(s), No lack of coordination, No loss of vision, No memory loss, No numbness, No other visual disturbances, No radicular pain, No restless legs, No sensory deficit, No syncope, No tingling, No tremor(s), No weakness and No other Exam Const General: cooperative Orientation: alert and oriented x3 HENND Head: normal to inspection Neck Neck: normal visual inspection and full ROM Chest Chest palpation & inspection: normal inspection of the chest Resp Effort & Inspection: normal respiratory effort Auscultation: clear to auscultation bilaterally Cardio Rate: regular rate Rhythm: regular rhythm GI Inspection: non-distended Palpation: soft and nontender Skin General: no rashes or lesions noted Neuro General: patient alert and patient oriented x3 Extrem General: full ROM Psych Appearance: grossly normal Mental Status: mental status grossly normal Assessment and Plan Assessment and Plan (1) History of colon polyps: Status: Acute (2) History of Gann's esophagus: Status: Acute Orders: Orders Colonoscopy Today EGD Today Plan Patient is due for surveillance colonoscopy for her history of colon polyp. I also recommend EGD. The patient had salmon-colored mucosa that looked like Gann's esophagus during her EGD. The pathology did not show any Gann's but I would recommend repeat as she does have chronic GERD and we can evaluate the distal esophagus and repeat biopsies if needed. I explained endoscopy in detail to the patient. I explained the risks including but not limited to stroke or heart attack with anesthesia, perforation of the GI tract, bleeding, infection. I explained that any of these could necessitate further emergency surgery. The patient understands and all questions were answered sufficiently. The patient wishes to proceed with procedure. John Taveras MD Pager: [facility] [address] [place] [address], [address] [place] [address] Office: I have examined the patient and the H&P has been reviewed. There are no clinical changes since date of exam.
[2023-07-20 09:50] VITALS: BP 122/78; BP 91/62; PULSE 67; RESP 16; TEMP 36.6; O2SAT 92
[2023-07-20 09:55] VITALS: BP 122/78; BP 94/62; PULSE 67; RESP 16; O2SAT 91
--- NOTE | 2023-07-20 09:58 | OP.EGD_ITS ---
Patient Name: Lorie Michele Procedure Date: 07/20/2023 9:22 AM Date of : 1955 Age: 68 Procedure: Upper GI endoscopy Indications: Follow-up of Gann's esophagus Providers: John Taveras MD Referring MD: John Taveras MD Medicines: Monitored Anesthesia Care Patient Profile: This is a 68 year old female. Refer to note in patient chart for documentation of history and physical. Complications: No immediate complications. Estimated blood loss: Minimal. Procedure: Pre-Anesthesia Assessment: - Prior to the procedure, a History and Physical was performed, and patient medications and allergies were reviewed. The patient's tolerance of previous anesthesia was also reviewed. The risks and benefits of the procedure and the sedation options and risks were discussed with the patient. All questions were answered, and informed consent was obtained. Prior Anticoagulants: The patient has taken no anticoagulant or antiplatelet agents. After reviewing the risks and benefits, the patient was deemed in satisfactory condition to undergo the procedure. After obtaining informed consent, the endoscope was passed under direct vision. Throughout the procedure, the patient's blood pressure, pulse, and oxygen saturations were monitored continuously. The Endoscope was introduced through the mouth, and advanced to the fourth part of duodenum. The upper GI endoscopy was accomplished without difficulty. The patient tolerated the procedure well. Scope In: 9:30:59 AM Scope Out: 9:33:39 AM Total Procedure Duration Time 0 hours 2 minutes 40 seconds Findings: The esophagus was normal. The stomach was normal. The examined duodenum was normal. Biopsies were taken with a cold forceps at the gastroesophageal junction for histology. Impression: - Normal esophagus. - Normal stomach. - Normal examined duodenum. - Biopsies were taken with a cold forceps for histology at the gastroesophageal junction. Recommendation: - Discharge patient to home. - Resume previous diet. - Continue present medications. - Await pathology results. Procedure Code(s): --- Professional --- 83291, Esophagogastroduodenoscopy, flexible, transoral; with biopsy, single or multiple Diagnosis Code(s): --- Professional --- K22.70, Gann's esophagus without dysplasia CPT copyright 2021 [employer]. All rights reserved. The codes documented in this report are preliminary and upon office engineer review may be revised to meet current compliance requirements. John Taveras MD 07/20/2023 9:57:28 AM This report has been signed electronically. Number of Addenda: 0 Note Initiated On: 07/20/2023 9:22 AM
--- NOTE | 2023-07-20 09:58 | OP.CCLET_ITS ---
07/20/2023 Oral Becerra [address] [place] [address] Re : Upper GI endoscopy procedure for Lorie Michele Dear Dr. Becerra This procedure was performed on Thursday, July 20, 2023. My impressions and recommendations are as follows: Impressions : - Normal esophagus. - Normal stomach. - Normal examined duodenum. - Biopsies were taken with a cold forceps for histology at the gastroesophageal junction. Recommendations : - Discharge patient to home. - Resume previous diet. - Continue present medications. - Await pathology results. My findings are described in the full procedure note, which is enclosed. If I can be of further assistance, please feel free to contact me at Doctor phone number(s): , Work: . Sincerely, John Taveras MD 07/20/2023 9:57:28 AM This report has been signed electronically.
--- NOTE | 2023-07-20 09:59 | OP.COLON_ITS ---
Patient Name: Lorie Michele Procedure Date: 07/20/2023 9:33 AM Date of : 1955 Age: 68 Procedure: Colonoscopy Indications: High risk colon cancer surveillance: Personal history of colonic polyps Providers: John Taveras MD Referring MD: John Taveras MD Medicines: Propofol per Anesthesia Patient Profile: This is a 68 year old female. Refer to note in patient chart for documentation of history and physical. Last Colonoscopy: 5 years ago. Complications: No immediate complications. Procedure: Pre-Anesthesia Assessment: - Prior to the procedure, a History and Physical was performed, and patient medications and allergies were reviewed. The patient's tolerance of previous anesthesia was also reviewed. The risks and benefits of the procedure and the sedation options and risks were discussed with the patient. All questions were answered, and informed consent was obtained. Prior Anticoagulants: The patient has taken no anticoagulant or antiplatelet agents. After reviewing the risks and benefits, the patient was deemed in satisfactory condition to undergo the procedure. After I obtained informed consent, the scope was passed under direct vision. Throughout the procedure, the patient's blood pressure, pulse, and oxygen saturations were monitored continuously. The Colonoscope was introduced through the anus and advanced to the cecum, identified by appendiceal orifice and ileocecal valve. The colonoscopy was performed without difficulty. The patient tolerated the procedure well. The quality of the bowel preparation was good. The ileocecal valve, appendiceal orifice, and rectum were photographed. Scope In: 9:37:09 AM Scope Withdrawal Time 0 hours 6 minutes 2 seconds Scope Out: 9:46:27 AM Total Procedure Duration Time 0 hours 9 minutes 18 seconds Findings: The entire examined colon appeared normal on direct and retroflexion views. Impression: - The entire examined colon is normal on direct and retroflexion views. - No specimens collected. Recommendation: - Discharge patient to home. - Resume previous diet. - Continue present medications. - Await pathology results. - Repeat colonoscopy in 5 years for surveillance. Procedure Code(s): --- Professional --- 78693, Colonoscopy, flexible; diagnostic, including collection of specimen(s) by brushing or washing, when performed (separate procedure) Diagnosis Code(s): --- Professional --- Z86.010, Personal history of colonic polyps CPT copyright 2021 [employer]. All rights reserved. The codes documented in this report are preliminary and upon government auditor review may be revised to meet current compliance requirements. John Taveras MD 07/20/2023 9:59:00 AM This report has been signed electronically. Number of Addenda: 0 Note Initiated On: 07/20/2023 9:33 AM
--- NOTE | 2023-07-20 09:59 | OP.CCLET_ITS ---
07/20/2023 Oral Becerra [address] [place] [address] Re : Colonoscopy procedure for Lorie Michele Dear Dr. Becerra This procedure was performed on Thursday, July 20, 2023. My impressions and recommendations are as follows: Impressions : - The entire examined colon is normal on direct and retroflexion views. - No specimens collected. Recommendations : - Discharge patient to home. - Resume previous diet. - Continue present medications. - Await pathology results. - Repeat colonoscopy in 5 years for surveillance. My findings are described in the full procedure note, which is enclosed. If I can be of further assistance, please feel free to contact me at Doctor phone number(s): , Work: . Sincerely, John Taveras MD 07/20/2023 9:59:00 AM This report has been signed electronically.
[2023-07-20 10:00] VITALS: BP 122/78; BP 91/62; PULSE 67; RESP 16; TEMP 36.4; O2SAT 91
[2023-07-20 10:11] VITALS: BP 122/78
== END 2023-07-20 10:22 | disposition home or self-care (01) ==
LOC: EN 08:17 → AC 08:20
PROVIDERS: PCP Family Medicine; Referring Provider Family Medicine; Visit Provider Surgery
PROC: 0DJD8ZZ Inspection of Lower Intestinal Tract, Via Natural or Artificial Opening Endoscopic (ICD-10-PCS; CPT 45378; principal; 2023-07-20 09:25)
DX: Z12.11 Encounter for screening for malignant neoplasm of colon (principal); K22.70 Barrett's esophagus without dysplasia; Z86.010 Personal history of colon polyps
CPT/HCPCS: 43239; G0121; 88305; 88313; J7120; J2405

== ENCOUNTER → 2023-08-17 | Outpatient (CLI) | payer MEDICARE, SELFPAY ==
--- NOTE | 2023-08-17 08:51 | BI_ITS ---
MAMMOGRAPHY - BILATERAL SCREENING REASON FOR EXAM: Female, 68 years old. Routine annual screening examination. PERTINENT HISTORY: Mother with breast cancer. Prior right stereotactic breast biopsy. TECHNIQUE: Digital bilateral breast leighton (3D mammographic acquisition) in the CC and MLO projections. 2-D mediolateral oblique (MLO) and craniocaudad (CC) views of both breasts were obtained. CAD: Full Field Digital Mammography with Computer Added Detection was performed. COMPARISON: Comparison is made with prior study April 16, 2015 and August 14, 2022. FINDINGS: Breast Composition: The breasts are heterogeneously dense, which may obscure small masses. There are no dominant masses or suspicious calcifications. Stable 3.4 mm well-defined nodule in the axillary region of the left breast. This most likely represents a small lymph node. Stable benign-appearing bilateral axillary lymph nodes. No other significant abnormalities are identified. There has been no significant change since the prior study. BI/SCREENING MAMM (CAD), BILAT IMPRESSION: Stable bilateral screening mammogram. Yearly follow-up mammogram recommended. (A) ASSESSMENT CATEGORY: BIRADS Category 2: Benign. A letter regarding these results will be sent to the patient by the facility within 30 days. Approximately 10% of breast cancers are not detected by mammography. A normal mammogram should not delay biopsy of a clinically suspicious abnormality. [id number] Electronically Signed: Chriss Contreras MD at 9:52 EST ,
== END | disposition home or self-care (01) ==
PROVIDERS: PCP Family Medicine; Referring Provider Nurse Practitioner Family; Visit Provider Nurse Practitioner Family
DX: Z12.31 Encounter for screening mammogram for malignant neoplasm of breast (principal); Z80.3 Family history of malignant neoplasm of breast
CPT/HCPCS: 77067

== ENCOUNTER 2023-12-20 08:00 | Outpatient (RCR) | payer MEDICARE, SELFPAY ==
--- NOTE | 2023-12-13 08:57 | HP.PTEVAL ---
Patient's Visit Information Visit Information Visit Information: KIM MON is a 68 year old F referred to Physical Therapy by Dr. Oral Becerra MD with a diagnosis of Vertigo. Date of Evaluation: 12/13/23 Physical Therapist: Vikas Thompson Visit Plan Frequency: 1-2x /Week Duration: 6 Weeks Plan: Continue to assess with ras hallpike and treat with Dantia hackett as needed. Begin gaze stabilization, balance, and neck ROM exercises as well. Subjective Subjective: Pt. is a 68 y.o. female who fell about 2.5 years go and fractured multiple ribs and her skull. She noticed that after this fall she had dizziness. Pt. states that it eventually got better after given repositioning technique. She was then painting and noticed she was dizzy again. She has not had any recent imaging. She notes she has some vision difficulty but has cataracts. Pt. denies any change in her hearing. Pt. describes the dizziness as woozy and lasts less than thirty seconds. Pt. has difficulty with sit to laying down, rolling over in bed occasionally, and walking on uneven ground. 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 Her goal with physical therapy is to get rid of the dizziness. Pt. denies any pain currently but will occasionally get neck pain. Her PMH includes heart murmur, hysterectomy, gall bladder removed, tonsillectomy, and left knee arthroscopic surgery. Pt. lives with her . Her hobbies include sewing, working out, and spending time with grankdids. Objective Objective: Neck AROM- WFL for all motions Oculomotor exam- Spontaneous nystagmus [-], Smooth pursuit [-], Gaze hold [-], Saccades [-], Head impulse [-], VOR cancellation [-] LE strength- Grossly 5/5 for all motions bilaterally Tandem stance right 30 secs, left 30 secs SLS right 11 secs, left 18 secs Ras hallpike [+ on right for symptoms and mild torsional upbeating nystagmus] Balance/Special Test Scores Dizziness Score: 10 Goals Goal 1:: Pt. will be able to lay down with no dizziness. Goal Time Frame: 4-6 Weeks Goal 2:: Pt. will be able to roll over in bed with no dizziness. Goal Time Frame: 4-6 Weeks Goal 3:: Pt. will be able to complete ADL's with no dizziness. Goal Time Frame: 4-6 Weeks Goal 4:: Pt. will improve DHI score < 8/100 in order to improve dizziness. Goal Time Frame: 4-6 Weeks Rehabilitation Potential Physical Therapy Diagnosis: Dizziness and balance impairment Rehabilitation Potential: Good Anticipated Interventions Patient/Client Instruction: Educate patient on: Condition and Plan of Care For the Purpose of:: To improve ability to perform ADL's, To improve performance and independence with ADL's, To improve balance, To assume or resume ADL's and To improve tolerance to ADL's Therapeutic Exercise to Include: Balance training Comment: Begin gaze stabilization and balance exercises. For the Purpose of:: To improve ability to perform ADL's, To improve performance and independence with ADL's, To improve balance, To assume or resume ADL's and To improve tolerance to ADL's Functional Training to Include: ADL Training and Gait training For the Purpose of:: To improve ability to perform ADL's, To improve performance and independence with ADL's, To improve balance, To assume or resume ADL's and To improve tolerance to ADL's Manual Therapy Techniques to Include: Passive ROM and Soft tissue mobilization For the Purpose of:: To decrease pain, To increase ROM, To improve ability to perform ADL's, To improve performance and independence with ADL's, To assume or resume ADL's and To improve tolerance to ADL's Text: Thank you for the opportunity to evaluate your patient. For Medicare and Medicare HMO plans, please review the plan of care and approve it. It will need to be FAXED BACK to us at [phone] for Medicare purposes. For Medicare only, by signing this I certify the plan of care. Please let me know if there are questions or concerns regarding this plan of care. Physician Signature: Date:
--- NOTE | 2024-04-08 16:34 | HP.PTDCSUM ---
Discharge Summary D/C summary: It has been my pleasure to treat KIM MON referred by Dr. Oral Becerra MD, with the diagnosis of Vertigo for a total of 2 visit(s). Discharge Date: Please see the following information for a summary of their discharge status. Subjective Subjective: Pt. states that she is not sure if it has helped. She still gets dizzy when she lays to the right side and doesn't last very long. She denies any spinning sensation just feels woozy. Objective Objective/Function: Pt. had vertigo symptoms with ras hallpike to the right so was treated twice for Danita maneuver again for right posterior canal canalthisis. Also added VOR x 1 today and educated pt. on adding this for home and provided handout of this. Pt. requested to continue with this exercise at home for right now and she is to follow up with her doctor and eye doctor in the next few weeks. Goals Goal 1:: Pt. will be able to lay down with no dizziness. Goal 2:: Pt. will be able to roll over in bed with no dizziness. Goal 3:: Pt. will be able to complete ADL's with no dizziness. Goal 4:: Pt. will improve DHI score < 8/100 in order to improve dizziness. Plan Plan: Pt. requested to continue with her exercise at home for right now. D/C Information d/c sentence: If there are questions or concerns regarding this patient's physical therapy, please feel free to call me at [phone]. Thank you for the referral of this patient. Sincerely, Elia Choe, DPT, OCS, CSCS Balance/Gait/Functional tests Balance/Special Test Scores Dizziness Score: 10
== END 2023-12-20 19:00 | disposition home or self-care (01) ==
LOC: PT 08:00
PROVIDERS: PCP Family Medicine; Referring Provider Family Medicine; Visit Provider Family Medicine
DX: R42 Dizziness and giddiness (principal)
CPT/HCPCS: 97110; 97161; 97530

== ENCOUNTER → 2024-01-24 | Outpatient (CLI) | payer MEDICARE, SELFPAY ==
[2024-01-24 10:03] LABS: Absolute Lymphocyte Count 2.26 X10^3/uL (0.83-4.51); Absolute Neutrophil Count 3.6 X10^3/uL (2.0-7.7); Basophil# 0.08 X10^3/uL; Basophil% 1.2 % (0-1); Eosinophil# 0.09 X10^3/uL; Eosinophils% 1.4 % (0-5); Hematocrit 45.6 % (37-47); Hemoglobin 14.7 g/dL (12.0-15.0); Lymphocyte # 2.26 X10^3/ul (0.83-4.51); Lymphocyte % 34.3 % (19-41); Mean Corp Hgb Conc 32.2 g/dL (32-36); Mean Corpuscular Hgb 28.7 pg (27.0-32.0); Mean Corpuscular Volume 89.1 fL (81-99); Mean Platelet Vol. 10.2 fl (6.2-12.0); Monocyte% 7.6 % (0-10); NRBC Flagged by Analyzer 0 % (0-5); Neutrophil # 3.62 X10^3/uL (2.7-7.7); Platelet Count 279 K/mm3 (150-450); RBC Distribution Width CV 13.1 % (11.6-14.6); Red Blood Count 5.12 M/mm3 (4.2-5.4); White Blood Count 6.6 K/mm3 (4.4-11.0)
[2024-01-24 10:24] LABS: ALB/GLOB Ratio 0.9 RATIO (0.9-2.4); AST(SGOT) 25 U/L (15-37); Alanine Aminotransfer ALT/SGPT 31 U/L (13-56); Albumin, Serum 3.5 g/dL (3.2-5.0); Alkaline Phosphatase 94 U/L (45-117); Anion Gap 5 (5-15); BUN 18 mg/dL (7-18); BUN/Creat Ratio 20.8 RATIO (10-20); Calcium,Total 10.4 mg/dL (8.5-10.1); Chloride 107 mmol/L (98-107); Creatinine, Serum 0.86 mg/dL (0.55-1.02); EST Glomerular Filtration Rate 69 mL/min (>60); Est Glom Filt Rate - Afr Amer 84 mL/min (>60); Globulin 4.1 g/dL (2.2-4.2); Glucose 114 mg/dL (74-106); Potassium 4.8 mmol/L (3.5-5.1); Protein, Total 7.6 g/dL (6.4-8.2); Sodium Level 141 mmol/L (136-145)
[2024-01-24 10:26] LABS: Vitamin D,25 Hydroxy 43.2 ng/mL
[2024-01-24 11:52] LABS: Hemoglobin A1c 5.6 % (3.8-5.6)
== END | disposition home or self-care (01) ==
LOC: MFPLAB 08:13
PROVIDERS: PCP Family Medicine; Visit Provider Family Medicine
DX: R73.02 Impaired glucose tolerance (oral) (principal); M81.0 Age-related osteoporosis without current pathological fracture
CPT/HCPCS: 36415; 80053; 82306; 83036; 85025

== ENCOUNTER → 2024-02-01 | Outpatient (CLI) | payer MEDICARE, SELFPAY ==
[2024-02-01 10:42] LABS: PTHIN 62.2 pg/mL (18.4-80.1)
[2024-02-01 10:58] LABS: Cholesterol 188 mg/dL (200); High Density Lipoprotein 50 mg/dL; Triglycerides 185 mg/dL; Very Low Density Lipoprotein 37 mg/dL (5-40)
== END | disposition home or self-care (01) ==
LOC: MFPLAB 08:07
PROVIDERS: PCP Family Medicine; Visit Provider Family Medicine
DX: E83.52 Hypercalcemia (principal); E78.1 Pure hyperglyceridemia
CPT/HCPCS: 36415; 80061; 83970

== ENCOUNTER → 2024-03-06 | Outpatient (CLI) | payer MEDICARE, SELFPAY ==
[2024-03-06 11:37] LABS: Anion Gap 8 (5-15); BUN 15 mg/dL (7-18); BUN/Creat Ratio 16.5 RATIO (10-20); Calcium,Total 9.9 mg/dL (8.5-10.1); Chloride 106 mmol/L (98-107); Creatinine, Serum 0.91 mg/dL (0.55-1.02); EST Glomerular Filtration Rate 65 mL/min (>60); Est Glom Filt Rate - Afr Amer 79 mL/min (>60); Glucose 113 mg/dL (74-106); Potassium 4.2 mmol/L (3.5-5.1); Sodium Level 138 mmol/L (136-145)
== END | disposition home or self-care (01) ==
LOC: MFPLAB 08:48
PROVIDERS: PCP Family Medicine; Visit Provider Family Medicine
DX: E83.52 Hypercalcemia (principal)
CPT/HCPCS: 36415; 80048

== ENCOUNTER → 2024-05-13 | Outpatient (CLI) | payer MEDICARE, SELFPAY ==
--- NOTE | 2024-05-13 08:18 | BD_ITS ---
STUDY: DUAL ENERGY X-RAY ABSORPTIOMETRY / DXA REASON FOR EXAM: Female, 69 years old. 733.00OsteoporosisBONE DENSITY REASON FOR EXAM TECHNIQUE: Bone Mineral Density (BMD) measurements of lumbar spine and bilateral hips were obtained. COMPARISON: Comparison is made with prior study May 11, 2022. FINDINGS: Lumbar Spine (L1-L4): g/cm2 (0.709) / T-score (-3.1) / Z-score (-1.1) Findings are suggestive of osteoporosis with a high fracture risk. Left Femur Total: g/cm2 (0.837) / T-score (-0.9) / Z-score (0.5) Left Femoral Neck: g/cm2 (0.688) / T-score (-1.5) / Z-score (0.2) Right Femur Total: g/cm2 (0.831) / T-score (-0.9) / Z-score (0.5) Right Femoral Neck: g/cm2 (0.647) / T-score (-1.8) / Z-score (-0.1) The T-Scores on the most recent prior examination were: Lumbar Spine (L1-L4): There has been improvement of bone density since the previous examination. Left Femur Total: which represents an improvement of 1.3%. Right Femur Total: which represents an improvement of 2.8%. BD/Dexa Bone Density Study IMPRESSION: The patient is considered osteoporotic as outlined below according to World Carlos Organization (WHO) criteria with a high fracture risk. There has been improvement of bone density since the previous examination. Reference Information: The T-score is the number of standard deviations above or below the standard which is normal for young adults at their peak bone mineral density. The World Health Organization (WHO) interprets the T-scores as follows: Above -1 Normal bone density Between -1 and -2.5 Osteopenia Equal to / or below -2.5 Osteoporosis As a practical clinical guideline, osteopenia may be graded as follows: Mild -1 through -1.5 Moderate -1.6 through -2.0 Severe -2.1 through -2.4 The Z-score is the number of standard deviations above or below age-matched controls. A Z-score of less than -1.5 would be considered abnormal. References: 1. NIH Osteoporosis and Related Bone Diseases www osteo.org 2. International Society for Clinical Densitometry www iscd.org 3. National Osteoporosis Foundation www nof.org Electronically Signed: Chriss Contreras MD at 9:29 EDT ,
== END | disposition home or self-care (01) ==
LOC: OPBD 08:10
PROVIDERS: PCP Family Medicine; Referring Provider Family Medicine; Visit Provider Family Medicine
DX: M81.0 Age-related osteoporosis without current pathological fracture (principal)
CPT/HCPCS: 77080

== ENCOUNTER → 2024-08-06 | Outpatient (CLI) | payer MEDICARE, SELFPAY ==
[2024-08-06 10:27] LABS: PTHIN 72.7 pg/mL (18.4-80.1)
[2024-08-06 10:38] LABS: Anion Gap 7 (5-15); BUN 17 mg/dL (7-18); BUN/Creat Ratio 23.5 RATIO (10-20); Calcium,Total 9.3 mg/dL (8.5-10.1); Chloride 108 mmol/L (98-107); Cholesterol 130 mg/dL (200); Creatinine, Serum 0.72 mg/dL (0.55-1.02); EST Glomerular Filtration Rate 85 mL/min (>60); Est Glom Filt Rate - Afr Amer 103 mL/min (>60); Glucose 110 mg/dL (74-106); High Density Lipoprotein 43 mg/dL; Potassium 4.2 mmol/L (3.5-5.1); Sodium Level 139 mmol/L (136-145); Triglycerides 66 mg/dL; Very Low Density Lipoprotein 13 mg/dL (5-40)
[2024-08-06 10:39] LABS: Absolute Lymphocyte Count 1.85 X10^3/uL (0.83-4.51); Absolute Neutrophil Count 2.9 X10^3/uL (2.0-7.7); Basophil# 0.04 X10^3/uL; Basophil% 0.7 % (0-1); Eosinophil# 0.03 X10^3/uL; Eosinophils% 0.5 % (0-5); Hematocrit 44.9 % (37-47); Hemoglobin 14.9 g/dL (12.0-15.0); Lymphocyte # 1.85 X10^3/ul (0.83-4.51); Lymphocyte % 33.8 % (19-41); Mean Corp Hgb Conc 33.2 g/dL (32-36); Mean Corpuscular Volume 87.4 fL (81-99); Monocyte# 0.64 X10^3/uL; Monocyte% 11.7 % (0-10); NRBC Flagged by Analyzer 0 % (0-5); Neutrophil # 2.89 X10^3/uL (2.7-7.7); Neutrophil % 52.9 % (47-70); Platelet Count 214 K/mm3 (150-450); RBC Distribution Width CV 13.1 % (11.6-14.6); RBC Distribution Width SD 41.6 fl (35.1-43.9); Red Blood Count 5.14 M/mm3 (4.2-5.4); White Blood Count 5.5 K/mm3 (4.4-11.0)
== END | disposition home or self-care (01) ==
LOC: LAB 08:15
PROVIDERS: PCP Family Medicine; Referring Provider Family Medicine; Visit Provider Family Medicine
DX: M81.0 Age-related osteoporosis without current pathological fracture (principal); E83.52 Hypercalcemia; R73.02 Impaired glucose tolerance (oral)
CPT/HCPCS: 36415; 80048; 80061; 82652; 83036; 83970; 85025

== ENCOUNTER → 2024-09-04 | Outpatient (CLI) | payer MEDICARE, SELFPAY ==
--- NOTE | 2024-09-04 10:02 | BI_ITS ---
PROCEDURE: SCRN MAMM (CAD)W/JOSE GUADALUPE BILAT REASON FOR EXAM: F, Age 69 y/o, presents for annual screening mammogram. Family history of breast cancer in her mother at 71. TECHNIQUE: Bilateral screening digital breast tomosynthesis with 2D and 3D images. Computer aided detection. COMPARISON: 08/17/2023 FINDINGS: There are scattered areas of fibroglandular density. No suspicious masses, areas of developing architectural distortion, or suspicious calcifications. BI/SCRN MAMM (CAD)W/JOSE GUADALUPE BILAT IMPRESSION: There is no mammographic evidence of malignancy in either breast. BI-RADS 1: NEGATIVE. RECOMMEND ANNUAL MAMMOGRAPHIC SCREENING. Follow-up code: Routine Follow-up The patient will be notified of the results by letter. Reading Location: [id number]
== END | disposition home or self-care (01) ==
LOC: OPBI 10:01
PROVIDERS: PCP Family Medicine; Referring Provider Family Medicine; Visit Provider Family Medicine
DX: Z12.31 Encounter for screening mammogram for malignant neoplasm of breast (principal)
CPT/HCPCS: 77063; 77067

== ENCOUNTER → 2024-10-29 | Outpatient (CLI) | payer MEDICARE, SELFPAY ==
--- NOTE | 2024-10-29 07:03 | RAD_ITS ---
PROCEDURE: CHEST PA AND LATERAL 10/29/2024 REASON FOR EXAM: DYSPNEA AND COUGH TECHNIQUE: Frontal and lateral views of the chest. COMPARISON: None. FINDINGS: Heart: Unremarkable. Mediastinum: Unremarkable. Lungs/pleura: Slightly eventrated RIGHT hemidiaphragm. No focal consolidation. No pleural effusion or visible pneumothorax. Question a 6 mm RIGHT mid to upper lung nodule. No definite correlate on the lateral view. Bones: Suspected demineralization. Lines and support devices: None. Other: None. RAD/Chest PA and Lateral IMPRESSION: 1. No visible acute cardiopulmonary findings 2. Question a 6 mm nodule on the RIGHT. Recommend CT chest, unless outside eduardo ging is available to establish long-term stability or further delineate. Reading Location: [id number]
[2024-10-29 11:20] LABS: Absolute Lymphocyte Count 3.13 X10^3/uL (0.83-4.51); Absolute Neutrophil Count 7.7 X10^3/uL (2.0-7.7); Basophil% 0.9 % (0-1); Eosinophil# 0.01 X10^3/uL; Eosinophils% 0.1 % (0-5); Hematocrit 43.2 % (37-47); Hemoglobin 14.6 g/dL (12.0-15.0); Lymphocyte # 3.13 X10^3/ul (0.83-4.51); Lymphocyte % 26.9 % (19-41); Mean Corp Hgb Conc 33.8 g/dL (32-36); Mean Corpuscular Hgb 28.8 pg (27.0-32.0); Mean Corpuscular Volume 85.2 fL (81-99); Mean Platelet Vol. 12.2 fl (6.2-12.0); NRBC Flagged by Analyzer 0 % (0-5); Neutrophil # 7.66 X10^3/uL (2.7-7.7); Neutrophil % 65.8 % (47-70); Platelet Count 216 K/mm3 (150-450); RBC Distribution Width SD 39.9 fl (35.1-43.9); Red Blood Count 5.07 M/mm3 (4.2-5.4); White Blood Count 11.6 K/mm3 (4.4-11.0)
[2024-10-29 11:40] LABS: Hemoglobin A1c 5.9 % (<=5.6)
[2024-10-29 12:00] LABS: ALB/GLOB Ratio 1.1 RATIO (0.9-2.4); AST(SGOT) 28 U/L (<=31); Alanine Aminotransfer ALT/SGPT 26 U/L (<=34); Alkaline Phosphatase 101 U/L (35-104); Anion Gap 12 (5-15); BUN 13 mg/dL (4-19); BUN/Creat Ratio 17.6 RATIO (10-20); Calcium,Total 9.8 mg/dL (7.6-11.0); Carbon Dioxide 19.8 mmol/L (21.0-32.0); Chloride 107 mmol/L (98-108); Creatinine, Serum 0.72 mg/dL (0.70-1.20); EST Glomerular Filtration Rate 91 (>60); Globulin 3.6 g/dL (2.2-4.2); Glucose 108 mg/dL (70-99); Protein, Total 7.6 g/dL (5.9-8.4); Sodium Level 138 mmol/L (133-145)
[2024-10-29 12:02] LABS: Vitamin D,25 Hydroxy 47.1 ng/mL (30-100)
== END | disposition home or self-care (01) ==
LOC: MTLAB 07:03
PROVIDERS: PCP Family Medicine; Referring Provider Family Medicine; Visit Provider Family Medicine
DX: R06.09 Other forms of dyspnea (principal); R73.02 Impaired glucose tolerance (oral); M81.0 Age-related osteoporosis without current pathological fracture
CPT/HCPCS: 36415; 71046; 80053; 82306; 83036; 85025

== ENCOUNTER → 2024-12-03 | Outpatient (CLI) | payer MEDICARE, SELFPAY ==
--- NOTE | 2024-12-03 12:27 | CT_ITS ---
EXAM: CT Chest With Intravenous Contrast CLINICAL INDICATION: 6MM NODULE ON XR TECHNIQUE: Axial computed tomography images of the chest with intravenous contrast. This CT exam was performed using one or more of the following dose reduction techniques: automated exposure control, adjustment of the mA and/or kV according to patient size, and/or use of iterative reconstruction technique. COMPARISON: No relevant prior studies available. FINDINGS: LUNGS AND PLEURAL SPACES: 6 mm calcified granuloma of the right upper lobe. This likely corresponds to the nodule seen on recent chest radiograph dated 10/29/2024. Mild lung emphysema/COPD. No consolidation. No significant effusion. No pneumothorax. HEART: Unremarkable. No cardiomegaly. No significant pericardial effusion. No significant coronary artery calcifications. MEDIASTINUM: A few prominent mediastinal lymph nodes measuring up to 6 mm. Small hiatal hernia. THYROID: Hypodense lesions in the thyroid, likely thyroid nodules. BONES/JOINTS: Unremarkable. No acute fracture. SOFT TISSUES: Unremarkable. VASCULATURE: Unremarkable. No thoracic aortic aneurysm. LYMPH NODES: See above. LIVER: Fatty liver. CT/Chest WITH Contrast IMPRESSION: 1. 6 mm calcified granuloma of the right upper lobe. This likely corresponds to the nodule seen on recent chest radiograph dated 10/29/2024. 2. Mild lung emphysema/COPD. Reading Location: [facility]
== END | disposition home or self-care (01) ==
LOC: CT 12:25
PROVIDERS: PCP Family Medicine; Referring Provider Family Medicine; Visit Provider Family Medicine
DX: R06.09 Other forms of dyspnea (principal)
CPT/HCPCS: 71260; Q9967

== ENCOUNTER 2025-01-20 07:00 | Outpatient (RCR) | payer MEDICARE, SELFPAY ==
--- NOTE | 2024-12-10 10:34 | HP.PTEVAL_ITS ---
Patient's Visit Information Visit Information Visit Information: KIM MON is a 69 year old F referred to Physical Therapy by WILLIAM Marques with a diagnosis of Strain Muscle/Tendon of Back Wall of Thorax. Date of Evaluation: 12/10/24 Physical Therapist: Ashley London DPT Visit Plan Frequency: 2x /Week Duration: 4 Weeks Plan: Focus on posterior chain- gluts, hamstrings, core strength/stabilization- gym exercises. HEP Given IE: HEP Given IE: Postural correction, scapular retraction, levator stretching, mid row, hamstring SB curl, mid row BTB, Seated figure 4 stretch Subjective Subjective: Patient reports that she has knots from her neck down to her tailbone on the left side- she thinks its from lifting her grandkids. It comes and goes- and she wants to try to get it fixed. She has pain in the left hip and in the left shoulder blade area. More of a dull achy pain- she has been seeing a chiropractor. Is just finishing a predisone dose pack and muscle relaxer when she was not sleeping. Ibuprofen knocks it out but the knots are still there. She is really active and is annoyed when she can't do things. She is left hand dominate. It bothers her when she walks- [facility] [place] its raining. No N/T or loss of strength noted. Chiro is doing adjustments. She goes to a massage therapist for the next 2 weeks. She was doing weights but her daughter in law is going on trips and it was better when she was doing them- she goes to [employer] 1x a week and that also helps. Machine but some free weights too. She has had a chest x-ray and a CT Scan of her chest- she has a mild case of emphazema and a fatty liver diet. Sleep: wakes her up at night sometimes- side sleeper. She fell off a ladder 3 years ago and fractured ribs but is all healed but does have some vertigo from that. PMHx/Meds: see chart updated 10/07 Objective Objective: Posture: forward head, rounded shoulders, can correct but does not maintain Gait: good arm swing and trunk rotation ROM: Lumbar: WNL- increased pain with SB to the left. LE: WNL in all planes, Cervical: SB bilateral decreased by 50%, Increased discomfort rotation to the left, UE: WNL in all planes. Palpation: tender along cervical spine from the occiput to the insertion of the levator, medial border of the scapula and glut medius on the right. Strength: scap: fair minus, Core: fair, Shoulder: 4+/5 throughout, Elbow/Wrist/Hand: 5/5, Hip: IR/ER: 4/5, Flexion:4+/5, Extn: 4+/5, Abd: 4+/5, Knee: 5/5 Ankle: 5/5 SLS: 15 sec without hip drop HR/TR: good without LOB Special Tests R Hip DELORES - Intraarticular Pathology: Positive R Hip FADDIR - Labrum: Positive R Hip Impingement Provocation - Labrum: Negative R Hip Trendelenberg - Glut Medius: Negative Balance/Special Test Scores Oswestry Low Back Score: 12 Goals Goal 1:: Patient will be I with HEP and progression Goal Time Frame: 4-6 Weeks Goal 2:: Patient will maintain proper posture to demo increased core s/s Goal Time Frame: 4-6 Weeks Goal 3:: Patient will Goal 4:: Patient will report 80% improvement Goal Time Frame: 4-6 Weeks Rehabilitation Potential Physical Therapy Diagnosis: Patient presents with decreased core/scapular strength/stabilization, glut and posterior chain strength with muscular imbalance and increased pain with ADLs Anticipated Interventions Patient/Client Instruction: Educate patient on: Benefits of Fitness Program Therapeutic Exercise to Include: Strength training, Endurance training, Balance training, Coordination, Agility training, Body mechanics, Postural training, Flexibilty training, Gait and locomotor training, Neuromotor development, Dynamic Lumbar Stabilization and Scapular Strength/Stabilization For the Purpose of:: To improve muscle performance and motor function Manual Therapy Techniques to Include: Soft tissue mobilization TENS: Yes Cryotherapy (ice pack, ice massage): Yes Thermo therapy (hot pack): Yes Ultrasound (thermal/non thermal): Yes Text: Thank you for the opportunity to evaluate your patient. For Medicare and Medicare HMO plans, please review the plan of care and approve it. It will need to be FAXED BACK to us at [phone] for Medicare purposes. For Medicare only, by signing this I certify the plan of care. Please let me know if there are questions or concerns regarding this plan of care. Physician Signature: Date:
--- NOTE | 2025-01-20 07:20 | HP.PTDCSUM ---
Discharge Summary D/C summary: It has been my pleasure to treat KIM MON referred by Zee Lerma, NATHAN-C, with the diagnosis of Strain Muscle/Tendon of Back Wall of Thorax for a total of 10 visit(s). Discharge Date: Please see the following information for a summary of their discharge status. Subjective Subjective: Patient reports that she is a little rough after the 16 of January- taking care of everyone else and didn't get her stretches in. 08/25 is the worst but her mobility is a lot better. Overall Improvement % Improvement: 75 Objective Objective/Function: Patient is indep with current HEP and will continue to perform stretches and strength at gym and her bone density at her other gym. Encouraged to call if questions arise. Goals Goal 1:: Patient will be I with HEP and progression Goal Progress: Goal Met Goal 2:: Patient will maintain proper posture to demo increased core s/s Goal Progress: Goal Met Goal 3:: Patient will report 80% improvement Goal Progress: Goal Met Goal 4:: Patient will report 80% improvement Plan Plan: Discharge to Home Exercises Program D/C Information d/c sentence: If there are questions or concerns regarding this patient's physical therapy, please feel free to call me at [phone]. Thank you for the referral of this patient. Sincerely, Ashley London, MAKAYLAT Balance/Gait/Functional tests Balance/Special Test Scores Oswestry Low Back Score: 0 Improvement % Improvement: 75
== END 2025-01-20 19:00 | disposition home or self-care (01) ==
LOC: PT 07:00
PROVIDERS: PCP Family Medicine
DX: S29.012D Strain of muscle and tendon of back wall of thorax, subsequent encounter (principal)
CPT/HCPCS: 97110; 97162; 97530

== ENCOUNTER → 2025-02-11 | Outpatient (CLI) | payer MEDICARE, SELFPAY ==
[2025-02-11 10:29] LABS: Hematocrit 43.3 % (37-47); Hemoglobin 14.2 g/dL (12.0-15.0); Immature Granulocytes Count 0.020 X10^3/uL (0.0-0.0); Mean Corp Hgb Conc 32.8 g/dL (32-36); Mean Corpuscular Volume 86.8 fL (81-99); Mean Platelet Vol. 10.7 fl (6.2-12.0); NRBC Flagged by Analyzer 0 % (0-5); Platelet Count 245 K/mm3 (150-450); RBC Distribution Width CV 13.2 % (11.6-14.6); RBC Distribution Width SD 41.2 fl (35.1-43.9); Red Blood Count 4.99 M/mm3 (4.2-5.4); White Blood Count 6.3 K/mm3 (4.4-11.0)
[2025-02-11 12:00] LABS: AST(SGOT) 48 U/L (<=31); Alanine Aminotransfer ALT/SGPT 46 U/L (<=34); Albumin, Serum 3.9 g/dL (3.4-4.8); Alkaline Phosphatase 96 U/L (35-104); Anion Gap 11 (5-15); BUN 17 mg/dL (4-19); BUN/Creat Ratio 20.9 RATIO (10-20); Calcium,Total 10.0 mg/dL (7.6-11.0); Carbon Dioxide 23.7 mmol/L (21.0-32.0); Chloride 104 mmol/L (98-108); Globulin 3.0 g/dL (2.2-4.2); Glucose 106 mg/dL (70-99); Potassium 4.1 mmol/L (3.3-5.1); Vitamin D,25 Hydroxy 52.0 ng/mL (30-100)
[2025-02-12 13:36] LABS: Hepatitis B Surface Antigen Nonreactive (Nonreactive); Hepatitis C Antibody Nonreactive (Nonreactive)
== END | disposition home or self-care (01) ==
LOC: MFPLAB 08:18
PROVIDERS: PCP Family Medicine; Referring Provider Family Medicine; Visit Provider Family Medicine
DX: R79.89 Other specified abnormal findings of blood chemistry (principal); R73.02 Impaired glucose tolerance (oral); M81.0 Age-related osteoporosis without current pathological fracture
CPT/HCPCS: 36415; 80053; 82306; 83036; 85025; 86706; 86803; 87340

== ENCOUNTER → 2025-03-27 | Outpatient (CLI) | payer MEDICARE, SELFPAY ==
[2025-03-27 13:15] LABS: AST(SGOT) 33 U/L (<=31); Alanine Aminotransfer ALT/SGPT 32 U/L (<=34); Albumin, Serum 4.2 g/dL (3.4-4.8); Alkaline Phosphatase 106 U/L (35-104); Anion Gap 12 (5-15); BUN 21 mg/dL (4-19); BUN/Creat Ratio 27.3 RATIO (10-20); Calcium,Total 10.3 mg/dL (7.6-11.0); Carbon Dioxide 23.0 mmol/L (21.0-32.0); Chloride 105 mmol/L (98-108); Globulin 3.2 g/dL (2.2-4.2); Glucose 103 mg/dL (70-99); Potassium 4.3 mmol/L (3.3-5.1)
== END | disposition home or self-care (01) ==
LOC: MFPLAB 10:10
PROVIDERS: PCP Family Medicine; Referring Provider Family Medicine; Visit Provider Family Medicine
DX: R73.02 Impaired glucose tolerance (oral) (principal); R79.89 Other specified abnormal findings of blood chemistry
CPT/HCPCS: 36415; 80053; 83036

== ENCOUNTER → 2025-04-15 | Outpatient (CLI) | payer MEDICARE, SELFPAY ==
--- NOTE | 2025-04-15 08:54 | US_ITS ---
PROCEDURE: ABD LIMITED W/ ELASTOGRAPHY REASON FOR EXAM: ELEVATED LFT'S COMPARISON: None. TECHNIQUE: Procedure Code: [id number] Modality: US Procedure: ABD LIMITED W/ ELASTOGRAPHY Right upper quadrant abdominal ultrasound. Kenan ElastQ Imaging shear wave elastography for non-invasive assessment of liver tissue stiffness. Kenan EPIQ Elite. FINDINGS: LIVER: Size: Unremarkable Length: 14 cm Echotexture: Echogenic Contour: Normal Lesions: None identified Elastography: EQI Med: 5.2 kPa EQI Med Luis Fernando: 1.29 m/s IQR/Med: 18.8 %* GALLBLADDER: Cholecystectomy COMMON BILE DUCT: Normal 4 mm. PANCREAS: Partially imaged but otherwise unremarkable. Visualized portions of the right kidney are unremarkable. No right upper quadrant ascites. US/ABD Limited w/ Elastography IMPRESSION: 1. Cholecystectomy 2. Diffuse hepatocellular disease. Metavir score F0-F1 Reference Values: SRU <1.37 m/s (5.7kPa): No to mild fibrosis 1.37 m/s - 2.2 m/s: Moderate to severe fibrosis >2.2 m/s (15kPa): Significant fibrosis / cirrhosis METAVIR Score F2 or higher: 1.34 m/s (5.7kPa) F3 or higher: 1.55 m/s (7.3kPa) F4: 1.80 m/s (10kPa) * If the IQR/Med is >30%, the variance in the measurements is a large and the a ccuracy of the measurement may be in question. Reading Location: [id number]
== END | disposition home or self-care (01) ==
LOC: OPUS 08:51
PROVIDERS: PCP Family Medicine; Referring Provider Family Medicine; Visit Provider Family Medicine
DX: R79.89 Other specified abnormal findings of blood chemistry (principal)
CPT/HCPCS: 76705; 76981

== ENCOUNTER 2025-06-10 08:30 | Outpatient (RCR) | payer MEDICARE, SELFPAY ==
--- NOTE | 2025-05-20 15:44 | HP.PTEVAL ---
Patient's Visit Information Visit Information Visit Information: KIM MON is a 70 year old F referred to Physical Therapy by Dr. Oral Becerra MD with a diagnosis of BPPV. Date of Evaluation: 05/20/25 Physical Therapist: Elia Choe, DPT, OCS, CSCS Visit Plan Frequency: 1-2x /Week Duration: 2-4 Weeks Plan: 1-2x/week for 2-4 weeks positional checks. Subjective Subjective: 2 weeks ago got bad dizzyness, lloking up doroteo her dizzy and lying on R side. Spins for short duration. Then feels normal but just spun at doctor office and feels woozy now. Since fall 3 yrs ago got some dizzyness iwth lying R side minimally. Sleeep is OK but has tension in neck. 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 Lifts at [facility]3x/week adn 2 mile walk daily is fine. Balance is good. Basic aDL all I Objective Objective: Walks into PT anxious but I, transfers bed and chair I, steps reciprocal without rail today and good balance. cervical AROM wFL and without pain. Ue AROM WFL and without problems, 4-/5 strength - L HD + R HD up torsional nystagmus 8 seconds. Treated with paco. Balance/Special Test Scores Functional Gait Assessment Score: 30 % Disability: 0 Dizziness Score: 18 Goals Goal 1:: Abolish dizzyness with rolling and looking up at sons. Goal Time Frame: 2-4 Weeks Goal 2:: Pt feel 100% back to normal. Goal Time Frame: 2-4 Weeks Goal 3:: 4 or less DHI Rehabilitation Potential Physical Therapy Diagnosis: Dizzy worry with head movement Rehabilitation Potential: Good Anticipated Interventions Patient/Client Instruction: Educate patient on: Condition and Plan of Care For the Purpose of:: To increase tolerance to activity/condition/position Comment: positional checks and treats. For the Purpose of:: To increase tolerance to activity/condition/position Text: Thank you for the opportunity to evaluate your patient. For Medicare and Medicare HMO plans, please review the plan of care and approve it. It will need to be FAXED BACK to us at [phone] for Medicare purposes. For Medicare only, by signing this I certify the plan of care. Please let me know if there are questions or concerns regarding this plan of care. Physician Signature: Date:
--- NOTE | 2025-06-10 08:27 | HP.PTDCSUM_ITS ---
Discharge Summary D/C summary: It has been my pleasure to treat KIM MON referred by Dr. Oral Becerra MD, with the diagnosis of BPPV for a total of 3 visit(s). Discharge Date: 06/10/25 Please see the following information for a summary of their discharge status. Subjective Subjective: Only symptoms aree leaning to R to hook babyseat in car. No spin just feels like it will start, seconds. Gts it going to left with exercises. Gets it guick lying in bed and turning R for a quick second. Overall less intense than 2 weeks ago and going the right. Overall Improvement % Improvement: 98 Objective Objective/Function: Good balance and improvement today subjectively but not abolished. + symptomatic R HD adn not L but no obvious nystagmus today. Goals Goal 1:: Abolish dizzyness with rolling and looking up at sons. Goal Progress: 98% Goal 2:: Pt feel 100% back to normal. Goal Progress: 98% Goal 3:: 4 or less DHI Goal Progress: Progressing Plan Plan: D/c To [facility] BD D/C Information Discharge Comments: Pt to contact doctor if improveement does not continue d/c sentence: If there are questions or concerns regarding this patient's physical therapy, please feel free to call me at [phone]. Thank you for the referral of this patient. Sincerely, Elia Choe, DPT, OCS, CSCS Balance/Gait/Functional tests Balance/Special Test Scores Functional Gait Assessment Score: 30 % Disability: 0 Dizziness Score: 8 Improvement % Improvement: 98
== END 2025-06-10 09:56 | disposition home or self-care (01) ==
LOC: PT 08:30
PROVIDERS: PCP Family Medicine; Referring Provider Family Medicine; Visit Provider Family Medicine
DX: H81.10 Benign paroxysmal vertigo, unspecified ear (principal)
CPT/HCPCS: 97161; 97530